=== PATIENT | female | born 1985 | race Caucasian/White ===

== ENCOUNTER 2016-05-24 22:54 | Emergency (ER) | payer OTHER ==
[~2016-05-24] VITALS: Ht 157.5 cm; Wt 72.7 kg
[~2016-05-24 22:54] MED LIST: AMOX500C2 PO; HYDR-4003 PO; MECL-114 PO; ONDA8TAB10 PO; OXYC-465 PO; PNV1TABL9 PO; PREN1TAB25 PO; TAMS0.4C29 PO; TRIA10.8 NS
[2016-05-24 22:59] VITALS: BP 131/66; PULSE 107; RESP 20; O2SAT 96
--- NOTE | 2016-05-24 23:47 | ED.REPORT ---
HPI-Abd Pain F Under 40 Date of Service May 24, 2016 ED Provider: Felipe Sarmiento MD The patient is a 30 year old female who is 33 weeks and was seen in the ED/admitted to the hospital two weeks ago for urinary urge and irritation who presents to the ED complaining of abdominal pain for the last month. She was diagnosed with hydronephrosis early last month and had a uretal stent placed at [facility] (04/27/16). Her last ultrasound was last week, her urine was last checked for infection two days ago. She states that her pain has been gradually worsening. She denies any other symptoms at this time. She is followed by Dr. Bartlett, urology. 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 Nursing Notes Stated Complaint: ABDOMINAL PAIN- 33WKS Chief Complaint: Female Abdominal Pain Nursing Notes Reviewed: Yes Allergies: Coded Allergies: No Known Allergies (Verified , 07/23/04) Scheduled Amoxicillin (Amoxicillin) 500 Mg Capsule 500 MG PO TID Meclizine (Bonine) 25 Mg Tab.chew 25 MG PO TID Pnv Cmb#21/Iron/Folic Acid ( Complete Caplet) 1 Each Tablet 1 EACH PO DAILY Vit#96/Ferrous Fum/FA ( Tablet) 1 Each Tablet 1 EACH PO DAILY Tamsulosin ER (Tamsulosin ER) 0.4 Mg Cap.er.24h 0.4 MG PO DAILY Triamcinolone Acetonide (Nasacort) 10.8 Ml Ravenel 10.8 ML NS DAILY Scheduled PRN Hydrocodone-Acetaminophen 5-325 mg (Hydrocodone-Acetaminophen 5-325 mg) 1 Each Tablet 1 TABLET PO BID PRN PRN For Pain Ondansetron ODT (Ondansetron ODT) 8 Mg Tab.rapdis 8 MG PO Q4H PRN PRN For Nausea Ondansetron ODT (Ondansetron ODT) 8 Mg Tab.rapdis 8 MG PO QID PRN PRN For Nausea oxyCODONE-Acetaminophen 7.5-325 mg (oxyCODONE-Acetaminophen 7.5-325 mg) 1 Each Tablet 1-2 TAB PO Q6H PRN PRN For Pain General Time Seen by : 23:32 Chief Complaint Abdominal pain, # weeks (33) Hx Obtained From: Patient Arrived By: Walk-in Sudden in Onset?: No Onset Occurred: More than a week ago... (4 weeks) Symptom Duration: Since onset Progression since Onset: Gradually worsening Location: : Abdomen lower: Suprapubic Quality: Painful Severity: Current: Moderate Severity: Maximum: Severe Recent Healthcare: Recent doctor visit, Recent hospitalization, Recent testing , Previous surgery, Prior workup Similar Sx Previous: No Past Medical History Past Medical History Hx of kidney stones UTI Depression and anxiety Past Surgical History Exc. lipoma upper back Kidney stone removal Family History Noncontributory Smoking History Never Smoker Social History Alcohol Use: Denies alcohol use Drug Use: Denies drug use Other Social History: Local resident Ambulatory Status Independent Review of Systems Constitutional: Denies: Chills, Fever Respiratory: Denies: Non-productive cough, Shortness of breath, Wheezing GI: Reports: Abdominal pain, Denies: Vomiting Female: Reports: Dysuria, Flank pain, , Urinary frequency, Urinary urgency Musculoskeletal: Denies: Extremity pain Complete sys rev & neg: except as marked. Physical Exam Initial Vital Signs Vital Signs (First) Date Time Temp Pulse Resp B/P Pulse Ox O2 Delivery O2 Flow Rate FiO2 05/24/16 22:59 36.4 107 20 131/66 96 Room Air Initial VS: Reviewed, Vital signs abnormal Head / Eyes: Atraumatic, Normocephalic, PERRL ENT: Mucous membranes moist, Conjunctiva normal, No scleral icterus Neck: Supple, Non-tender, Full range of motion Extremities: Vascular intact, Neuro intact, No swelling, No tenderness Skin: Warm, Dry, No cyanosis Neurologic: Alert, Oriented, Nonfocal Psychiatric: Mood/affect normal, Behavior normal, Normal thought content General/Constitutional: Awake, Alert Distress / Hydration: Positive: Distress mild Appearance / Presentation: Positive: Uncomfortable Respiratory / Chest: Atraumatic, Breath sounds NL, Breath sounds = bilat, No respiratory distress Cardiovascular: Heart rate NL, Regular rhythm, Heart sounds NL Abdomen: Atraumatic Tenderness/Guarding/Rebound: Positive: Tender diffuse Back: Atraumatic Mild right CVA tenderness Interpretation & Diagnostics Lab Results Interpretation Test 05/25/16 04:15 Urine Color Dark yellow (YELLOW) Urine Appearance Clear (CLEAR,HAZY) Urine pH 6.5 (5.0-8.0) Urine Specific [place] 1.025 (1.003-1.035) Urine Protein 100mg/dL (NEG,TRACE) Urine Glucose (UA) Negativemg/dL (NEGATIVE) Urine Ketones Negativemg/dL (NEGATIVE) Urine Occult Blood Large (NEGATIVE) Urine Nitrite Positive (NEGATIVE) Urine Bilirubin Negative (NEGATIVE) Urine Urobilinogen Normalmg/dL (NORMAL) Urine Leukocyte Esterase Small (NEGATIVE) Urine RBC Packed/hpf (0-2) Urine WBC 0-5/hpf (0-5) Urine Epithelial Cells Moderate/hpf (NONE-MOD) Urine Crystals None seen (NONE SEEN) Urine Bacteria None/hpf (NONE-FEW) Urine Hyaline Casts None/lpf (NONE) Urine Granular Casts None seen (NONE SEEN) Urine Waxy Casts None seen (NONE SEEN) Urine Red Blood Cell Casts None seen (NONE SEEN) Urine White Blood Cell Casts None seen (NONE SEEN) Urine Mucus None seen (None Seen) Urine Trichomonas None seen (NONE SEEN) Urine Yeast None (NONE SEEN) Urine Culture Reflexed Indicated Hold Urine Received (Received) US Focused non-OB Pelvis IMPRESSION: 1. Mild to moderate right hydronephrosis. Right uretal stent with the upper portion in the procimal ureter and the lower portion in the urinary bladder. 2. Nonobstructive left nephrolithiasis. Exam Performed by: Allied health pract Exam Interpreted by: Radiologist Re-Eval/Medical Decision Med Decision/Clinical Course The ultrasound shows that the hydronephrosis is no worse and the stent still appears to be properly placed. There is no urinary tract infection. Dr. Gonzalez (multimedia instructional designer for Dr. Grimm) was contacted. He will discuss with Dr. Grimm the need for sooner follow-up and possibly using Suboxone his pain management in this patient if narcotics are needed for a longer period of time. Source of Hx: Old records Re-Evaluation/Progress #1: Time of Eval: 02:36 Re-Evaluation/Progress Note: Rechecked the patient to discuss ultrasound result. She reports moderate improvement following treatment. Re-Evaluation/Progress #2: Time of Eval: 06:01 Re-Evaluation/Progress Note: Rechecked the patient. Discussed consult with Dr. Gonzalez and plan for discharge. Follow-up instructions and RTER warnings given. The patient understands and agrees to the plan. All questions addressed. Consultation : Referral / Consult Name: Vincent Gonzalez DO Call Returned at: 05:57 Note: Discussed the patient's history and symptoms in detail with Dr. Gonzalez OBGYN multimedia instructional designer for Dr. Antonio, who will see the patient this week in the office. Counseled Regarding: Diagnosis, Lab results, Need for follow-up, When/why to return to ED, Other (imaging) Discharge & Departure Primary Impression: Abdominal pain Abdominal location: generalized Qualified Code: R10.84 - Generalized abdominal pain Additional Impressions: Pain due to ureteral stent Encounter type: subsequent encounter Qualified Code: T83.84XD - Pain from genitourinary prosthetic devices, implants and grafts, subsequent encounter with hydronephrosis in third trimester Disposition: Home Discharge Condition All VS Reviewed: Yes Condition: Stable Additional Instructions: The ultrasound shows that your hydronephrosis is no worse and your stent still appears to be properly placed. You do not have a urinary tract infection. I do not see any specific abnormality of your private area that would be a cause of pain. Continue your pain medication for now. If you require continued narcotic pain medicine, it probably would be a good idea to switch to buprenorphine for pain management because there is less likelihood that the baby would have difficulty on that medication. Have Dr. Grimm contact me if that is being considered as an option. I talked to Dr. Gonzalez who is multimedia instructional designer for Dr. Grimm this . He will let Dr. Grimm know that you need to be seen sooner than this Thursday. Contact me at [phone] between the hours of 9 PM and 6 AM for the next few nights if you have questions or concerns. Referrals: Yayo Antonio MD (PCP) Arthur Attestation Portions of this note were transcribed by Syed Ramos. I, Dr. Sarmiento, personally performed the history, physical exam and medical decision-making; I reviewed and confirmed the accuracy of the information in the transcribed note. Signed by: Arthur Ziegler, 05/25/16 06:01. copies to: Yayo Antonio MD, Howard L MD May 24, 2016 23:47 SYED RAMOS May 25, 2016 00:00
[2016-05-25] MEDS ORDERED: HYDROmorphone 1 mg/mL Inj IM ONE ×2 (00:10→03:05)
[2016-05-25 03:52] VITALS: BP 102/78; PULSE 98; RESP 16; O2SAT 98
[2016-05-25 05:31] LABS: APPEARANCE,URINE CLEAR (CLEAR,HAZY); COLOR,URINE DARK YELLOW (YELLOW); OCCULT BLOOD,URINE LARGE (NEGATIVE); PH,URINE 6.5 (5.0-8.0); UROBILINOGEN,URINE NORMAL (NORMAL)
[2016-05-25] MEDS ORDERED: _oxyCODONE/APAP 5-325 mg Tablet PO PRN (06:00)
[2016-05-25 06:48] VITALS: BP 106/57; PULSE 89; RESP 18; O2SAT 97
--- NOTE | 2016-05-25 08:24 | DRSVH ---
PROCEDURE: US RENAL SONOGRAM INDICATIONS: assess hydroureter and stent position TECHNIQUE: Real-time scanning was performed of the kidneys and bladder, with image documentation. COMPARISON: None. FINDINGS: Patient is 33 weeks . Kidneys: Kidneys are normal in size. Right kidney measures 13.9 cm long; left kidney measures 12.8 cm long. Right renal cortical thickness is 1.4 cm; left renal cortical thickness is 1.3 cm. Renal c ortical echotexture is normal. There is mild to moderate right renal hydronephrosis if any change sl ightly more prominent than 05/20/16. Proximal ureteral stent is not visualized within the renal collect ing system on the right. Distally there is an echogenic focus consistent with stent in the bladder. There is a 6 mm echogenic focus centrally in the mid to lower pole of left kidney suspicious for nono bstructing stone. Bladder: Pre-void bladder volume is 43 mL. Post-void residual is zero mL. Pre-void images demonstr ate no intraluminal masses or stones Miscellaneous: No free pelvic fluid. IMPRESSION: 1. Proximal ureteral stent on the right is not visualized. A mild to moderate right hydronephrosis is unchanged to slightly more prominent compared to 05/20/16. Echogenic focus in the bladder is consisten t with distal right ureteral stent. 2. Question of nonobstructing stone in the left kidney. Dictated by: Easton Gutiérrez M.D. on 05/25/2016 at 8:22 Approved by: Easton Gutiérrez M.D. on 05/25/2016 at 8:22
[2016-08-26] MEDS ORDERED: LORA0.5T PO (15:53)
[2016-09-10] MEDS ORDERED: WARF7.5T4 PO ×2 (10:18)
[2016-09-10] MEDS ORDERED: OMEP20TA24 PO (17:10)
== END 2016-05-25 06:45 | disposition home or self-care (01) ==
LOC: SED 22:54
DX: O26.893 Other specified pregnancy related conditions, third trimester (principal); T83.84XD Pain due to genitourinary prosthetic devices, implants and grafts, subsequent encounter; Y93.89 Activity, other specified; Y92.9 Unspecified place or not applicable; Y99.8 Other external cause status; O26.833 Pregnancy related renal disease, third trimester; Z3A.33 33 weeks gestation of pregnancy
CPT/HCPCS: 51701; 76770; 81000; 87086; 96372; 99284; J1170

== ENCOUNTER 2016-06-19 08:32 | Observation (INO) | payer OTHER ==
[2016-06-19] MEDS ORDERED: Ondansetron 2 mg/mL 2 mL Inj IVPUSH ONE (09:25)
[2016-06-19] MEDS: Lactated Ringer's 1,000 ML IV SCH ×2 (09:26→15:25)
[2016-06-19] MEDS ORDERED: Promethazine 25 mg/mL Inj IM ONE (10:50)
[2016-06-19 10:51] LABS: Mean Corpuscular Hemoglobin 23.1 pg (27.0-35.0)
[2016-06-19] MEDS ORDERED: Ondansetron 2 mg/mL 2 mL Inj IVPUSH PRN (17:30)
[2016-06-19] MEDS ORDERED: Lactated Ringer's 1,000 ML IV SCH (17:30)
[2016-06-19] MEDS ORDERED: Dextrose 5% Lactated Ringer's 1,000 ML IV ONE (18:24)
[2016-06-19] MEDS ORDERED: Dextrose 5% Lactated Ringer's 1,000 ML IV SCH (20:05)
[2016-06-19] MEDS ORDERED: Thiamine Inj 100 MG, Folic Acid Inj 1 MG, Magnesium Sulfate 50% Inj 2 GM, Multivitamins... IV ONE ×5 (21:50)
[2016-06-19] MEDS ORDERED: Acetaminophen IV 1,000 MG in IV Premix 1 EACH IV PRN (22:35)
[2016-06-19] MEDS: oxyCODONE-Acetamin 5-325 mg Tablet PO PRN (22:42)
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
[2016-06-20] MEDS: oxyCODONE-Acetamin 5-325 mg Tablet PO PRN (09:40)
[2016-06-20 11:40] LABS: APPEARANCE,URINE CLOUDY (CLEAR,HAZY); COLOR,URINE STRAW (YELLOW); OCCULT BLOOD,URINE MODERATE (NEGATIVE); PH,URINE 7.5 (5.0-8.0); UROBILINOGEN,URINE NORMAL (NORMAL)
--- NOTE | 2016-06-20 16:09 | PCM.DIMED ---
Discharge Instructions Date of Service Jun 20, 2016 Dates of Hospitalization Jun 19, 2016 at 17:29 Discharge Diagnosis Discharge Diagnosis Dehydration Vomiting Right Nephrolithiasis with stenting 37 week Diet No restrictions Activity No restrictions Call your provider Fever or Chills, Shortness of breath, Bleeding, Chest pain, Vomitting, Excessive diarrhea Patient Instructions Follow-up Provider: Yayo Antonio MD Follow-up with PCP in: 1 week Gabriel Maddox MD Jun 20, 2016 10:47
[2016-06-20 16:11] VITALS: BP 94/63; PULSE 86; RESP 16
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
[2016-08-26] MEDS ORDERED: LORA0.5T PO (15:53)
[2016-09-10] MEDS ORDERED: WARF7.5T4 PO ×2 (10:18)
[2016-09-10] MEDS ORDERED: OMEP20TA24 PO (17:10)
== END 2016-06-20 16:40 | disposition home or self-care (01) ==
LOC: FBCO 08:32 → FBC 17:29
PROVIDERS: ADMIT Family Medicine; ATTEND Family Medicine
DX: E86.0 Dehydration (principal); O60.03 Preterm labor without delivery, third trimester; R11.2 Nausea with vomiting, unspecified; F41.9 Anxiety disorder, unspecified; R19.7 Diarrhea, unspecified; F17.210 Nicotine dependence, cigarettes, uncomplicated; Z87.442 Personal history of urinary calculi; Z91.419 Personal history of unspecified adult abuse; Z3A.37 37 weeks gestation of pregnancy
CPT/HCPCS: 36415; 81000; 85027; 87086; 87088; 87804; 96372; 96374; 96375; 96376; G0378; G0463; J2270; J2405; J2550; J3105; J3475; J7030; J7120

== ENCOUNTER 2016-06-23 14:29 | Inpatient (IN) | payer OTHER ==
[~2016-06-23] VITALS: Ht 157.5 cm; Wt 74.4 kg
[~2016-06-23 14:29] MED LIST changes: -AMOX500C2 PO; +Bupiv-Spinal 0.75%/Dex 8.25% 2 mL Inj ONE; +Carboprost 250 mCg/mL Inj IM ONE; +EPHEDrine/NS 5 mg/mL 5 mL Syringe ONE; +MetoCLOpramide 5 mg/mL 2 mL Inj ONE; +Ondansetron 2 mg/mL 2 mL Inj ONE; +Oxytocin 10 Unit/mL Inj ONE; +Phenylephrine 10,000 mCg/mL Inj ONE
[2016-06-23] MEDS ORDERED: Morphine PF 1 mg/mL 10 mL Inj ONE (14:59)
[2016-06-23] MEDS ORDERED: Lactated Ringer's 1,000 ML IV SCH ×2 (15:06→16:43)
[2016-06-23] MEDS ORDERED: Carboprost 250 mCg/mL Inj IM PRN ×2 (15:10→17:40)
[2016-06-23] MEDS ORDERED: Methylergonovine 0.2 mg/mL Inj IM PRN ×2 (15:10→17:40)
[2016-06-23] MEDS ORDERED: Hemorrhage Kit, Post Partum XX ONE ×2 (15:10→17:40)
[2016-06-23] MEDS ORDERED: Sodium Citrate-Citric Acid 15 mL Solution PO SCH (15:10)
[2016-06-23] MEDS ORDERED: Oxytocin 10 Unit/mL Inj IM PRN ×2 (15:10→17:40)
[2016-06-23] MEDS ORDERED: CeFAZolin 2 Gm/50 mL D5W Duplex Bag IV ONE (15:16)
[2016-06-23 15:20] LABS: Mean Corpuscular Hemoglobin 22.8 pg (27.0-35.0); Mean Corpuscular Volume 75.2 fL (81-100)
--- NOTE | 2016-06-23 15:57 | PCM.HPANE ---
Patient Data Surgeon Admitting Provider:Van Hawthorne MD Attending Provider:Van Hawthorne MD Primary Care Physician:Yayo Antonio MD Other Provider:Calvin Noble Anesthesia Reason for Visit Term Early Labor TERM EARLY LABOR Ht/WT & BMI Body Mass Index Allergies Coded Allergies: No Known Allergies (Verified , 07/23/04) Past Anesthesia History Anesthesia History: Denies:: Abnormal Airway, Anesthesia Reactions, Difficult Intubation, Fam Anesthesia Reaction, Fam Malignant Hypertherm, Malignant Hyperthermia Diabetes History Hx Diabetes?: No MRSA MRSA: No Medications Hypertension Medication: No Home Meds Incl Beta Dejuan: No Active Scripts oxyCODONE-Acetaminophen 7.5-325 mg 1 Each Tablet1-2 Tab PO Q6H PRN For Pain #30 TABLET Ref 0 Prov:Gabriel Maddox MD 05/11/16 Ondansetron ODT 8 Mg Tab.rapdis8 Mg PO Q4H PRN For Nausea #15 TABLET Ref 1 Prov:Aiden Cole MD 04/15/16 Hydrocodone-Acetaminophen 5-325 mg 1 Each Tablet1 Tablet PO BID PRN For Pain # 20 TABLET Ref 0 Prov:Aiden Cole MD 04/15/16 Meclizine (Bonine)25 Mg Tab.chew25 Mg PO TID DIZZINESS #14 TABLET Prov:Ariel Aviles MD 03/13/16 Triamcinolone Acetonide (Nasacort)10.8 Ml Spray10.8 Ml NS DAILY CONGESTION #1 SPRAY Prov:Ariel Aviles MD 03/13/16 Reported Medications Tamsulosin ER 0.4 Mg Cap.er.24h0.4 Mg PO DAILY 04/25/16 Ondansetron ODT 8 Mg Tab.rapdis8 Mg PO QID PRN For Nausea 04/25/16 Vit#96/Ferrous Fum/FA ( Tablet)1 Each Tablet1 Each PO DAILY 03/13/16 Pnv Cmb#21/Iron/Folic Acid ( Complete Caplet)1 Each Tablet1 Each PO DAILY 02/04/16 Discontinued Scripts Amoxicillin 500 Mg [id number] Mg PO TID #21 CAPSULE Ref 0 Prov:Gabriel Maddox MD 05/11/16 History History of ENT Problems?: No HEENT History: Denies:: Abnormal Airway Cataracts Difficult Intubation Dysphagia Hearing Problem Sinus Problem Hx of Heart Problems?: No Cardiovascular History: Denies:: Cardiac Surgery Chest Pain Congestive Heart Failure Heart Murmur Hypertension Irregular Heartbeat Pacemaker Thrombophlebitis Hx of Respiratory Problem?: Yes Respiratory History: Positive for:: Pneumonia (Hosp for pnuemonia 2010 8 days) Denies:: Asthma COPD Chest Surgery Dyspnea Emphysema Hemoptysis Tuberculosis Hx Neurologic Problems?: Yes Neurological History: Positive for:: Headaches Denies:: Alzheimer's Disease CVA Dementia Dizziness Parkinson's Disease Seizures Hx of GI Problems?: Yes Gastrointestinal History: Positive for:: Rectal Bleeding Denies:: Diverticulitis Gastroesphageal Reflux Gastrointestinal Bleeding Heartburn Hepatitis Hiatal Hernia Hx of Problems?: Yes Genitourinary History: Positive for:: Kidney Stones Urinary Tract Infection Denies:: HX of Hemodialysis HX of Peritoneal Dialysis: No Female Hx: Positive for:: Currently (29wks ) Denies:: Endometriosis Pelvic Inflammatory Problems with Breasts? Skin History: Denies:: History Skin Disorders? Pressure Ulcers Hx Musculoskeletal Problems?: Yes Musculoskeletal History: Positive for:: Back Injury (THREW BACK OUT ONCE IN SOFTBALL) Denies:: Joint Replacement Musculoskeletal Trauma Hx of Psycho/Social Problems?: Yes Psycho Social History: Positive for:: Anxiety Hx Depression Denies:: Bipolar Disorder Hx Surgeries?: Yes (EXC LIPOMA UPPER BACK, , kidney stone removal) Hx Any Other Health Problems?: Yes Other History: Denies:: Cancer Endocrine Disease Hospitalization Thyroid Disease History Blood Transfusions: Denies:: Blood Transfuse Reaction Blood Transfusions Hx Diabetes: No Hx Alcohol Use: YesHx Substance Use: No Smoking Status: Never Smoker Have You Smoked inLast 12 mo: No Stop/Bang ARABELLA Risk Assessment: Low Risk, <3 Yes Risk Assessment Category Category 1A: Patient has history of documented sleep apnea, and HAS NOT received any narcotic, sedative or anesthesia administration during this stay. Category 1B: Patient has history of documented sleep apnea, and HAS received any narcotic , sedative or anesthesia administration during this stay Category 2: Patient has SUSPECTED Obstructive Sleep Apnea, and HAS received any narcotic , sedative or anesthesia administration during this stay. Category 3: Patient has SUSPECTED Obstructive Sleep Apnea and HAS NOT received narcotic, sedative or anesthesia administration during this stay. Category 4: Outpatient in Procedural Areas with known sleep apnea or who screen positive for High Risk via the STOP/BANG questionnaire. Exam Exam General Appearance: Moderate Distress HEENT/AIRWAY: MP 2 Lungs: Clear to Auscultation, Normal Air Movement Heart: Exam Unremarkable, Regular Rate/Rhythm, No Murmurs/Rubs/Gallops Meds/Labs/Diagnostics Admission Meds Current Medications Lactated Ringer's (Lr) 1,000 ml @ 125 mls/hr Q8H IV Last administered on 15:34; Start 06/23/16 at 15:06; Stop 06/23/16 at 23:05 Cefazolin Sodium/ Dextrose (Ancef Inj) 2 gm STK-MED ONCE IV Last administered on 06/23/16 15:33; Start 06/23/16 at 15:16; Stop 06/23/16 at 15:18; Status DC Labs Test 06/23/16 15:05 White Blood Count 11.2th/mm3 (3.8-10.1) Red Blood Count 4.04mil/mm3 (3.90-5.20) Hemoglobin 9.2g/dL (12.0-15.6) Hematocrit 30.4% (35.0-46.0) Mean Corpuscular Volume 75.2fL (81-100) Mean Corpuscular Hemoglobin 22.8pg (27.0-35.0) Mean Corpuscular Hemoglobin Concent 30.3% (32.0-37.0) Red Cell Distribution Width 18.8% (12.3-15.4) Platelet Count 355bil/L (150-400) Plan Impression Patient chart reviewed, patient interviewed and anesthestic plan with risks, benefits, and alternatives discussed, and informed consent obtained. ASA Physical Status: ASA2 Plus Emergency Anesthetic Plan: SAB Bene/Risks/Altern/Consents: Yes HP Complete Prior to Induction: Yes (OB doc feels that further delay is not warranted and that we need to proceed prior to NPO guidelines.) Syed Pride MD Jun 23, 2016 15:40
[2016-06-23] MEDS ORDERED: Lactated Ringer's 500 ML IV PRN (16:43)
[2016-06-23] MEDS ORDERED: fentaNYL-PF 50 mCg/mL 2 mL Inj IVPUSH PRN (16:45)
[2016-06-23] MEDS ORDERED: EPHEDrine Sulfate 50 mg/mL Inj IVPUSH PRN ×2 (16:45→16:50)
[2016-06-23] MEDS ORDERED: hydrALAZINE 20 mg/mL Inj IVPUSH PRN (16:45)
[2016-06-23] MEDS ORDERED: MetoCLOpramide 5 mg/mL 2 mL Inj IVPUSH PRN (16:45)
[2016-06-23] MEDS ORDERED: Labetalol 5 mg/mL 4 mL Inj IV PRN (16:45)
[2016-06-23] MEDS ORDERED: HYDROmorphone 1 mg/mL Inj IVPUSH PRN (16:45)
[2016-06-23] MEDS ORDERED: Ondansetron 2 mg/mL 2 mL Inj IVPUSH PRN (16:45)
[2016-06-23] MEDS ORDERED: Phenylephrine 10,000 mCg/mL Inj IVPUSH PRN (16:45)
[2016-06-23] MEDS ORDERED: Promethazine Inj 12.5 MG in Dextrose 5%-Pha MIX 50 ML IV ONE (17:30)
[2016-06-23] MEDS ORDERED: Oxytocin 30 Units/500 mL LR 30 UNITS in IV Premix 1 EACH IV PRN (17:40)
[2016-06-23] MEDS ORDERED: LANOlin HPA 7 Gm Ointment TOPICAL PRN (17:40)
[2016-06-23] MEDS ORDERED: Acetaminophen IV 1,000 MG in IV Premix 1 EACH IV PRN (17:40)
[2016-06-23] MEDS ORDERED: Sodium Chloride LOK Flush 10 mL Syringe IVFLUSH PRN (17:40)
[2016-06-23] MEDS ORDERED: hydrOXYzine Pamoate 25 mg Capsule PO PRN (17:40)
--- NOTE | 2016-06-23 17:50 | PCM.ANEP1 ---
Post Anesthesia Phase 1 PACU Phase 1 Assessment Anesthetic Administered: SAB Level of Alertness: Awake, talking WORKMAN's with Equal Strength: No (residual SAB) Pain: No Nausea or Vomiting: No Oxygen Delivery: Room Air Lungs: Clear to Auscultation, Normal Air Movement Dermatome Level: T4 (Nipple Line) Summary Vital signs stable. Syed Pride MD Jun 23, 2016 17:50
--- NOTE | 2016-06-23 17:54 | PCM.ANEP2 ---
Post Anesthesia Evaluation ASA/CMS Post Anesthesia VS in Patient's Normal Range?: Yes Resp Stable; Airway Patent?: Yes CV Function & Hydration Stable: Yes Mental Status Recovered?: Yes Pain control Satisfactory?: Yes N/V Control Satisfactory?: Yes Syed Pride MD Jun 23, 2016 17:54
[2016-06-23] MEDS: Lactated Ringer's 1,000 ML IV SCH (22:47)
[2016-06-23] MEDS: oxyCODONE-Acetamin 5-325 mg Tablet PO PRN (22:48)
--- NOTE | 2016-06-23 23:59 | HP PRE OP ---
[address] [address] PREOPERATIVE HISTORY AND PHYSICAL PATIENT: DANIEL TINSLEY : 1985 MR#: [id number] ADMIT: 06/23/2016 JOB ID: [id number] HISTORY OF PRESENT ILLNESS: The patient is a 30-year-old, 3, para 2, at 37 weeks and 2 days, comes to Labor and Delivery with complaint of ruptured membranes since 2 p.m. yesterday, patient arrives at around 4 p.m. The amniotic fluid is clear. She denies any fever and chills. She denies abnormal vaginal discharge or vaginal bleeding. She admits having contractions every 3-4 minutes that are becoming more frequent and intense. Her care was in office of Dr. Antonio. The patient had one prior delivery with her second because of bradycardia. She preferred to have another delivery. She does not want to have tubal ligation at this time. records were reviewed. She is group B strep unknown. Blood group and type A, Rh negative. Rubella immune. care was relatively uncomplicated. The patient has a history of anxiety disorder, currently on no medications. She has a history of kidney stones. SOCIAL HISTORY: She denies smoking, alcohol, illicit recreational drug use. FAMILY HISTORY: Noncontributory. ALLERGIES: NKDA. PHYSICAL EXAMINATION: Vital signs: Blood pressure 110/62, respiratory rate 18, pulse 78, temperature 36.7. HEENT: PERRLA. Lungs: Clear bilaterally. Good respiratory effort. The abdomen is gravid, nondistended, moderately tender with contractions. Patient uncomfortable, complaining of contractions every three minutes. Vaginal exam: Pooling of amniotic fluid in the posterior fornix of the vagina, it is clear. The cervix is 3 cm dilated, 80% effaced, -1 station. LABORATORIES: Were sent, they are pending. ASSESSMENT AND PLAN: The patient is a 30-year-old, 3, para 2, at 37 weeks and 2 days, spontaneous rupture of membranes for 26 hours with regular contractions every three minutes. She had prior section and prefers to have another . The patient is in active labor. She is going for repeat delivery. Informed consent is obtained. The risks and benefits were explained, the risks including, but not limited to, bleeding, infection, complications related to damage to adjacent organ or structures, increased recovery period. We are not doing any tubal ligation at this point. Antibiotics will be started with Ancef 2 g IV piggyback. IV fluids Lactated Ringer's at 125 mL/h. Bacytra will be given 30 mL p.o. one dose. Herrera catheter is being placed. Labs pending. MTDD
--- NOTE | 2016-06-24 01:08 | OP ---
[address] [address] OPERATIVE REPORT PATIENT: DANIEL TINSLEY : 1985 MR#: [id number] ADMIT: 06/23/2016 JOB ID: [id number] DATE OF SURGERY: 06/23/2016 PROCEDURE: Repeat low transverse section. PREOPERATIVE DIAGNOSIS(ES): 1. Intrauterine , 37 weeks and 2 days. 2. Spontaneous rupture of membranes, prolonged. 3. History of prior delivery. POSTOPERATIVE DIAGNOSIS(ES): 1. Prolonged spontaneous rupture of membranes. 2. Status post repeat delivery at term. SURGEON: Van Hawthorne MD MANAGEMENT NURSE RN: Yayo Antonio MD ANESTHESIA: Syed Pride MD, spinal. ESTIMATED BLOOD LOSS: 500 mL. ESTIMATED FLUIDS: 2200 mL of lactated Ringer's. URINE OUTPUT: 200 mL. COMPLICATIONS: None. FINDINGS: Adhesions between the omentum and anterior abdominal wall. No adhesions between the uterus and the bladder. Normal appearance of the ovaries and adnexa. Delivered male with Apgars 8 at one minute and 9 at five minutes. INDICATION FOR THE PROCEDURE: The patient is a 30-year-old, 3 para 3 now, who came to Labor and Delivery with complaint of spontaneous rupture of membranes for 26 hours. The patient has prior history of delivery, and she opted to have another . The assistance of Dr. Antonio was necessary for proper exposure, retraction and assistance with delivery of the . DESCRIPTION OF PROCEDURE: The patient was brought to the operating room, where she underwent spinal anesthesia without difficulty. The patient was placed in a dorsal supine position with a leftward tilt. She was prepped and draped in the usual surgical fashion. A time-out was performed, verifying correct patient and correct procedure. She received preoperative antibiotics. A Pfannenstiel skin incision was made 2 cm over the pubic bone with a scalpel and carried down to the underlying layer of rectus muscle fascia using Bovie. The rectus muscle fascia was grasped with two Javid clamps, the lower aspect of the incision. The rectus muscle fascia was incised in the midline with the Bovie and the incision was then laterally extended using Jacinto scissors. The lower aspect of the incision was grasped with two Javid clamps and the rectus muscle fascia was from the underlying rectus muscle using Jacinto scissors. In a similar fashion, the upper aspect of the incision was grasped with two Javid clamps and the rectus muscle fascia was from the underlying rectus muscle using scalpel, Bovie, Jacinto scissors, moist laparotomy sponge. When adequate exposure was achieved, the rectus muscles were in the midline with the Eugenia clamps. The scarring between the muscles was released using Metzenbaum scissors. The lysis of adhesions was provided between the anterior abdominal wall and omentum. Bladder blade was introduced. Using scalpel, lower segment transverse uterine incision was made and extended laterally using bandage scissors. The 's head was identified, the bladder blade was removed and male was atraumatically delivered. The mouth and nostrils were suctioned. Delayed cord clamping was done, 60 seconds. After that, the cord was clamped and cut, and the was handed off to the waiting salvationist. The cord blood was sent. The placenta was removed by applying pressure over the fundus of the uterus and gentle traction. The uterus was exteriorized and cleared from all the blood clots and debris using dry laparotomy sponge. The uterine incision was repaired with two layers of 0 Monocryl. The pelvis was irrigated with warm normal saline and the uterus was repositioned back into the abdomen. Good hemostasis was achieved. The peritoneum was reapproximated with 2-0 Monocryl. Two interrupted 2-0 Monocryl and two interrupted 2-0 Vicryl sutures were placed on the rectus muscles for reapproximation. The fascia was closed with 0-Vicryl in a running, nonlocking fashion. Three interrupted 3-0 Vicryl sutures were applied to Tung's fascia and subcuticular tissue for reapproximation. The skin was closed with 4-0 Monocryl in a subcuticular fashion. Hemostatic dressing was applied. The patient was repositioned back into the supine position. She tolerated the procedure well and was transferred to the recovery room in stable condition.
[2016-06-24] MEDS: oxyCODONE-Acetamin 5-325 mg Tablet PO PRN ×5 (04:28→21:40)
[2016-06-24 06:41] LABS: Mean Corpuscular Hemoglobin 23.2 pg (27.0-35.0); Mean Corpuscular Volume 75.4 fL (81-100)
--- NOTE | 2016-06-24 07:00 | PCM.PNOBPP ---
Subjective Date of Service Jun 24, 2016 Post : Repeat Cesere[place] Delivery Visit History 30-year-old woman now presented [facility] with spontaneous rupture of membranes, found to be in active labor, she received a repeat section 06/23/[address] Hawthorne. She received intrapartum antibiotics due to unknown GBS status. Outpatient records show negative antibody screen, however repeat antibody screen on presentation showed positive antibody, positive anti-D. Subjective Patient states she is doing well. Says her pain is under control. So she has mild lower extremity swelling, but nothing out of the ordinary from her previous pregnancies and without asymmetry. States she has a good appetite and is eating as though she is still . Her only complaint is significant feelings of gas "rumbling." Lochia: Normal Pain Management: PO pain meds Gastrointestinal: Good Appetite Postop Activity: Ambulating Independently Labs Quad screen negative per outpatient record 02/06/2016 Gestational diabetes screen high normal 139 GBS culture 06/11/2016 negative Chlamydia and gonorrhea, last results seen from August 2012, and January 2012, both negative. Unable to find results from this . Microcytic anemia, hemoglobin 8.2, MCV 74, on CBC from 04/23/2016 Group B Strep Results: Negative Rubella: Immune Blood Type: A RH Type: Negative Labs Laboratory Tests 06/23/16 15:05: White Blood Count 11.2, Red Blood Count 4.04, Hemoglobin 9.2, Hematocrit 30.4, Mean Corpuscular Volume 75.2, Mean Corpuscular Hemoglobin 22.8, Mean Corpuscular Hemoglobin Concent 30.3, Red Cell Distribution Width 18.8, Platelet Count 355 Exam Vital Signs Vital Signs 109/67mmHg HR 80 SaO2 99% on RA Resp 18 per minute Temp 97.7 F. Vital Signs: VS reviewed, stable Exam Abdomen: Abdomen appropriately tender : Voiding without difficulty (Had howe catheter removed just before encounter. H/o incontinence during due to instrumentation. ) Extremities: Normal pulses, No tenderness/swelling, No edema Lungs: Clear to Auscultation Heart: Regular Rate/Rhythm, Normal S1, Normal S2, Murmur (upstroking systolic while supine /.) General: Oriented X3, Cooperative, No Acute Distress Additional Information Surgical dressing in place, bandages dry and intact. OB Post Assessment/Plan Assessment 30-year-old woman now status post repeat section postop day 1, recovering well. Pain is under control with oral analgesics. Surgical dressing in place without complications. Has not yet had a bowel movement or passed flatus. Had Howe catheter removed several minutes prior to physical exam, and not yet had opportunity to void on her own. Baby's blood type is O NEGATIVE, with negative antiglobulin test. Problems: (1) SROM (spontaneous rupture of membranes) Status: Acute ICD Code: [id number] (2) Previous delivery affecting Status: Acute ICD Code: O34.21 Pain Management: Continue with oral analgesics. Pain Evaluation: Adequate Pain Control Post plan: Continue routine post care, Discharge home tomorrow Plan: Anticipating discharge home tomorrow, postop day 2. Continue to monitor surgical site, increase ambulation to independence, oral analgesics, monitor urination status. States she is interested in IUD for contraception, has had it in the past, review of outpatient records shows that she had a Mirena. Encourage ambulation Encourage breast feeding, consultation today. Attending Statement Doing well today. Pain is well controlled. She is ambulating and howe catheter is removed, awaiting spontaneous void. No flatus yet. Denies nausea or vomiting. She is breast and botte feeding. Labs show anemia. Will start FeS04. Incision is clean/dry/intact with pressure bandage. Lochia is minimal and vital signs are stable. Has planned follow up with urology for removal of stents planned with Dr. Bartlett. Blood type is RH negative as is baby's, no rhogam is indicated. Plan for discharge home tomorrow. Rafael Pineda DO Jun 24, 2016 06:22 Aysha Rodríguez MD Jun 24, 2016 11:28
[2016-06-24] MEDS: Lactated Ringer's 1,000 ML IV SCH (09:37)
[2016-06-25] MEDS: oxyCODONE-Acetamin 5-325 mg Tablet PO PRN ×3 (02:58→12:05)
--- NOTE | 2016-06-25 11:44 | PCM.DIMED ---
Discharge Instructions Date of Service Jun 25, 2016 Dates of Hospitalization Jun 23, 2016 at 14:58 Discharge Diagnosis Discharge Diagnosis Spontaneous rupture of membranes Repeat section Medication Instructions Percocet 5/325 mg, take 1 tab q4-6h PO PRN for pain, #40-60 Colace 100 mg BID PO PRN for constipation #60-100 Ferrous sulfate 325 mg PO daily, #90 Vitamin C 500 mg PO daily, #90. Take with iron Ibuprofen 800mg, take 1 tab q8h PO PRN for pain Diet No restrictions Activity Other (No heavy lifting for two-four weeks.) Call your provider Fever or Chills, Shortness of breath, Bleeding, Chest pain, Vomitting, Excessive diarrhea, Weakness (unilateral) Patient Instructions Continue your vitamin. Please take the iron and vitamin c together for your anemia. Do not take more pain medication (Percocet) than is necessary -- less is better. Percocet pills have Tylenol (acetaminophen) in them at 325mg per pill. Do not take Tylenol in addition to your pain medication but should take one or the other. Both iron and Percocet can give you constipation so you have also been given a prescription for docusate to keep you regular. Be sure to follow up in 2 weeks and then again in [facility] at [facility]. If you experience any worsening pain on your incision area, any drainage, bleeding, nausea, vomiting, chills, fever, please contact women's [facility] office or report to emergency department if necessary. Follow-up plan 2 weeks [facility] Provider: Yayo Antonio MD Follow-up in: 4 weeks Rafael Pineda DO Jun 25, 2016 11:44
[2016-06-25] MEDS ORDERED: DOCU-41 PO (11:54)
[2016-06-25] MEDS ORDERED: Simethicone PO (11:54)
[2016-06-25] MEDS ORDERED: OXYC-465 PO (11:54)
[2016-06-25] MEDS ORDERED: IBUP800T28 PO (11:54)
[2016-06-25] MEDS ORDERED: FERR-74 PO (11:54)
--- NOTE | 2016-06-25 12:29 | PCM.DC.OB ---
Obstetrical Discharge Summary Date of Service Jun 25, 2016 Date of hospital admission Jun 23, 2016 at 14:58 Date of Discharge: Jun 25, 2016 Providers Admitting Physician: Van Hawthorne MD Primary Care Physician: Yayo Antonio MD Attending Physician: Van Hawthorne MD Diagnosis at Time of Discharge Spontaneous rupture of membranes Prolonged rupture of membranes Status post repeat delivery Problems: (1) SROM (spontaneous rupture of membranes) Status: Acute ICD Code: [id number] (2) Previous delivery affecting Status: Acute ICD Code: O34.21 Brief History and Physical: G3 now P3, presented at 37w 5d to 30 yo women delivered healthy male via elective c/s after she presented in Labor with ROM for about 26 hours. No fevers. complicated with Maternal blood type of A Neg; Kidney stones and urinary problems for last 2-3 months, Ureteral stents placed twice, Kidney stone removal and maternal stress. Apgars 9 and 9, delivery weight 2918g baby's blood type O-. Physical exam on day of discharge postop day 2 General: Sitting up, no apparent distress. HEENT: Normocephalic, atraumatic, extraocular muscles intact, nares are patent, mucosa moist. Cardiovascular: Regular rate and rhythm, no clicks murmurs or rubs, 2/4 peripheral pulses radial and dorsal pedalis Pulmonary: Clear to auscultation bilaterally, no wheezing rales or rhonchi Abdominal/GI: Nondistended, low transverse incision, margins are well aligned, there is no redness, dehiscence, discharge, area is tender. Musculoskeletal: Able to move extremities on her own volition, 5 out of 5 strength upper and lower extremities equal bilaterally Lymphatics: No palpable lymph nodes in neck axillary or inguinal area Extremities: No edema, atraumatic. Hospital Course: Patient presented to [facility] after 26 hours of spontaneous rupture of membrane, she is 37 weeks 5 days, and underwent repeat section. She was in the hospital for 2 days following , her main complaints during this stay included gassy cramping symptoms treated with simethicone and moderate pain and tenderness to incision site. On postop day 2 she was cleared for discharge, she also requested to go home after being offered to stay another night due to moderate surgical pain. Patient declined. ([Simethicone]) 80 MG CHEW 80 MG PO QID PRN PRN for gas Prescribed by: RAFAEL WELDON DO Docusate Sodium (Colace) 100 Mg Capsule 100 MG PO BID Prescribed by: RAFAEL WELDON DO Ferrous Sulfate (Feosol) 325 Mg Tablet 325 MG PO TIDWM Prescribed by: RAFAEL WELDON DO Ibuprofen (Ibuprofen) 800 Mg Tablet 800 MG PO Q6H PRN PRN For Pain Prescribed by: RAFAEL WELDON DO Meclizine (Bonine) 25 Mg Tab.chew 25 MG PO TID Prescribed by: JOVI LIRA MD Ondansetron ODT (Ondansetron ODT) 8 Mg Tab.rapdis 8 MG PO Q4H PRN PRN For Nausea Prescribed by: SORAIDA MONIQUE MD Pnv Cmb#21/Iron/Folic Acid ( Complete Caplet) 1 Each Tablet 1 EACH PO DAILY (Reported) Vit#96/Ferrous Fum/FA ( Tablet) 1 Each Tablet 1 EACH PO DAILY ( Reported) Tamsulosin ER (Tamsulosin ER) 0.4 Mg Cap.er.24h 0.4 MG PO DAILY (Reported) Triamcinolone Acetonide (Nasacort) 10.8 Ml [place] 10.8 ML NS DAILY Prescribed by: JOVI LIRA MD oxyCODONE-Acetaminophen 7.5-325 mg (oxyCODONE-Acetaminophen 7.5-325 mg) 1 Each Tablet 1-2 TAB PO Q6H PRN PRN For Pain Prescribed by: RAFAEL WELDON DO Discontinued Medications Amoxicillin (Amoxicillin) 500 Mg Capsule 500 MG PO TID Prescribed by: LEE FRANK MD Hydrocodone-Acetaminophen 5-325 mg (Hydrocodone-Acetaminophen 5-325 mg) 1 Each Tablet 1 TABLET PO BID PRN PRN For Pain Prescribed by: SORADIA MONIQUE MD Ondansetron ODT (Ondansetron ODT) 8 Mg Tab.rapdis 8 MG PO QID PRN PRN For Nausea (Reported) Discharge Medications: Percocet 5/325 mg, take 1 tab q4-6h PO PRN for pain, #40-60 Colace 100 mg BID PO PRN for constipation #60-100 Ferrous sulfate 325 mg PO daily, #90 Vitamin C 500 mg PO daily, #90. Take with iron Ibuprofen 800mg, take 1 tab q8h PO PRN for pain Disposition Patient is able to ambulate independently, expresses and conveys understanding for the concern of chorioamnionitis due to the moderate pain at the incision site. Patient agrees to close follow-up, and was given instructions on red flag symptoms and presented to the ER or the family center. Follow-up plan [facility] in 2 weeks and again in 6 weeks. Follow-up with Dr. Grimm's office in 4 weeks Discharge Diet: No restrictions Discharge Activity-General: Pelvic Rest for 6 weeks, Try not to overdue, Be up and about, Ice incision 3-5 time/day for 20min, No lifting >15 pounds for 2 weeks Patient instructions Continue your vitamin. Please take the iron and vitamin c together for your anemia. Do not take more pain medication (Percocet) than is necessary -- less is better. Percocet pills have Tylenol (acetaminophen) in them at 325mg per pill. Do not take Tylenol in addition to your pain medication but should take one or the other. Both iron and Percocet can give you constipation so you have also been given a prescription for docusate to keep you regular. Be sure to follow up in 2 weeks and then again in 6 weeks at [facility]. ( Follow up for without complications is 6 weeks) Pelvic rest for 6 weeks (nothing per vagina including intercourse, tampons) If you have a fever greater than 100.4, please call [facility]. There is always someone coupon clerk to talk to. If you have an increase in bleeding, call [facility]. If you have a lot of bleeding suddenly, especially if you have symptoms of dizziness & weakness with it, get emergency help. When you see [facility] in two weeks, you will be informed of the results of all the labs. If you start experiencing extreme depression, especially if you feel that you are a danger to yourself or your family, seek emergency help. You have been through a lot -- BE SURE TO TAKE CARE OF YOURSELF. Rafael Pineda DO Jun 25, 2016 12:29
[2016-06-25 12:48] VITALS: BP 120/71; PULSE 66; RESP 18
[2016-08-26] MEDS ORDERED: LORA0.5T PO (15:53)
[2016-09-10] MEDS ORDERED: WARF7.5T4 PO ×2 (10:18)
[2016-09-10] MEDS ORDERED: OMEP20TA24 PO (17:10)
== END 2016-06-25 13:24 | disposition home or self-care (01) | DRG 766 ==
LOC: FBCO 14:29 → FBC 14:58
PROVIDERS: ADMIT Legal Medicine; ATTEND Legal Medicine
PROC: 10D00Z1 Extraction of Products of Conception, Low, Open Approach (ICD-10-PCS; principal; 2016-06-23 16:01)
DX: O34.211 Maternal care for low transverse scar from previous cesarean delivery (principal); O42.02 Full-term premature rupture of membranes, onset of labor within 24 hours of rupture; Z3A.37 37 weeks gestation of pregnancy; Z37.0 Single live birth

== ENCOUNTER 2016-07-06 16:09 | Emergency (ER) | payer OTHER ==
[~2016-07-06] VITALS: Ht 157.5 cm; Wt 68.2 kg
[~2016-07-06 16:09] MED LIST changes: -Bupiv-Spinal 0.75%/Dex 8.25% 2 mL Inj ONE; -Carboprost 250 mCg/mL Inj IM ONE; +DOCU-41 PO; -EPHEDrine/NS 5 mg/mL 5 mL Syringe ONE; +FERR-74 PO; -HYDR-4003 PO; +IBUP800T28 PO; -MetoCLOpramide 5 mg/mL 2 mL Inj ONE; -Ondansetron 2 mg/mL 2 mL Inj ONE; -Oxytocin 10 Unit/mL Inj ONE; -Phenylephrine 10,000 mCg/mL Inj ONE; +Simethicone PO
[2016-07-06 16:24] VITALS: BP 128/84; PULSE 69; RESP 20; O2SAT 98
[2016-07-06 17:51] LABS: BASOPHILS % (AUTO) 0.5 % (0-3); EOSINOPHILS % (AUTO) 1.7 % (0-5); MONOCYTES % (AUTO) 4.9 % (4-12); Mean Corpuscular Hemoglobin 23.4 pg (27.0-35.0); Mean Corpuscular Volume 75.3 fL (81-100); NEUTROPHILS % (AUTO) 55.6 % (40-74); Platelet Count 428 bil/L (150-400)
--- NOTE | 2016-07-06 18:06 | ED.REPORT ---
HPI-General Illness Date of Service Jul 06, 2016 ED Provider: Jose R Figueroa DO A 30 year old female with a history of UTI, anxiety, and thirteen days ago presents to the ED complaining of fever, chills, and abdominal muscle soreness. These symptoms began three days ago. She also had a sore throat at the time but this has resolved. She denies neck stiffness. The pt was seen by her OBGYN when the symptoms began and had blood work done, but she has not heard the results. A strep test and flu test were both negative. 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 Complaint: Female Abdominal Pain Nursing Notes Reviewed: Yes Allergies: Coded Allergies: No Known Allergies (Verified , 07/23/04) Scheduled Docusate Sodium (Colace) 100 Mg Capsule 100 MG PO BID Ferrous Sulfate (Feosol) 325 Mg Tablet 325 MG PO TIDWM Meclizine (Bonine) 25 Mg Tab.chew 25 MG PO TID Pnv Cmb#21/Iron/Folic Acid ( Complete Caplet) 1 Each Tablet 1 EACH PO DAILY Vit#96/Ferrous Fum/FA ( Tablet) 1 Each Tablet 1 EACH PO DAILY Tamsulosin ER (Tamsulosin ER) 0.4 Mg Cap.er.24h 0.4 MG PO DAILY Triamcinolone Acetonide (Nasacort) 10.8 Ml [place] 10.8 ML NS DAILY Scheduled PRN ([Simethicone]) 80 MG CHEW 80 MG PO QID PRN PRN for gas Ibuprofen (Ibuprofen) 800 Mg Tablet 800 MG PO Q6H PRN PRN For Pain Ondansetron ODT (Ondansetron ODT) 8 Mg Tab.rapdis 8 MG PO Q4H PRN PRN For Nausea oxyCODONE-Acetaminophen 7.5-325 mg (oxyCODONE-Acetaminophen 7.5-325 mg) 1 Each Tablet 1-2 TAB PO Q6H PRN PRN For Pain General Time Seen by MD: 18:06 Chief Complaint Fever Hx Obtained From: Patient Arrived By: Walk-in Sudden in Onset?: No Onset Occurred: 3 days ago Symptom Duration: Since onset Recent Healthcare: Recent doctor visit, Recent hospitalization Similar Sx Previous: No Past Medical History Past Medical History Hx of kidney stones UTI Depression and anxiety Past Surgical History Exc. lipoma upper back Kidney stone removal Family History Noncontributory Smoking History Never Smoker Social History Alcohol Use: Denies alcohol use Drug Use: Denies drug use Other Social History: Local resident Ambulatory Status Independent Review of Systems Full Review of Systems Constitutional: Reports: Chills, Fever Respiratory: Denies: Non-productive cough, Shortness of breath GI: Reports: Abdominal pain (soreness) Musculoskeletal: Denies: Neck pain Skin: Denies Rash Complete sys rev & neg: except as marked. Physical Exam Vital Signs Vital Signs Date Time Temp Pulse Resp B/P Pulse Ox O2 Delivery O2 Flow Rate FiO2 07/06/16 22:35 36.3 69 20 128/84 98 Room Air 07/06/16 16:24 36.3 69 20 128/84 98 Room Air Initial VS: Reviewed General/Constitutional: Awake, Alert moderate distress due to pain Head / Eyes: Atraumatic, Normocephalic, PERRL, EOMI ENT: Atraumatic, Airway patent, Mucous membranes moist Neck: Atraumatic, Supple, Full range of motion Respiratory / Chest: Atraumatic, Breath sounds NL, Breath sounds = bilat, No respiratory distress Cardiovascular: Heart rate NL, Regular rhythm, Heart sounds NL Abdomen: Atraumatic, Soft suprapubic and pelvic tenderness Back: Atraumatic, Full range of motion Upper Extremities Upper Extremity / MS: Atraumatic, Full range of motion Lower Extremity / Pelvis / MS: Atraumatic, Full range of motion Skin: Color NL, No rash, Warm, Dry incision site healing well Neurologic: Oriented X3, Speech NL, No motor deficits, No sensory deficits Psychiatric: Affect NL, Mood NL Interpretation & Diagnostics Lab Results Interpretation Result Diagram: 07/06/16 1740 07/06/16 174 Test 07/06/16 17:40 07/06/16 19:57 White Blood Count 6.5th/mm3 (3.8-10.1) Red Blood Count 4.61mil/mm3 (3.90-5.20) Hemoglobin 10.8g/dL (12.0-15.6) Hematocrit 34.7% (35.0-46.0) Mean Corpuscular Volume 75.3fL (81-100) Mean Corpuscular Hemoglobin 23.4pg (27.0-35.0) Mean Corpuscular Hemoglobin Concent 31.1% (32.0-37.0) Red Cell Distribution Width 18.9% (12.3-15.4) Platelet Count 428bil/L (150-400) Neutrophils (%) (Auto) 55.6% (40-74) Lymphocytes (%) (Auto) 37.1% (14-46) Monocytes (%) (Auto) 4.9% (4-12) Eosinophils (%) (Auto) 1.7% (0-5) Basophils (%) (Auto) 0.5% (0-3) Sodium Level 140mEq/L (134-144) Potassium Level 4.2mEq/L (3.5-5.2) Chloride Level 103mEq/L (97-108) Carbon Dioxide Level 21mmol/L (18-29) Blood Urea Nitrogen 12mg/dL (6-20) Creatinine 0.66mg/dL (0.57-1.00) Estimat Glomerular Filtration Rate 149mL/min (>59) Glucose Level 82mg/dL (60-99) Lactic Acid Level 0.7mmol/L (0.4-2.0) Calcium Level 8.5mg/dL (8.5-10.1) Magnesium Level 1.9mg/dL (1.6-2.6) Total Bilirubin 0.2mg/dL (0.0-1.2) Aspartate Amino Transf (AST/SGOT) 13U/L (0-50) Alanine Aminotransferase (ALT/SGPT) 11U/L (0-32) Alkaline Phosphatase 97U/L (25-150) Total Protein 6.7g/dL (6.4-8.4) Albumin 3.8g/dL (3.4-5.0) Procalcitonin 0.04ng/mL (0.00-0.08) Urine Color Yellow (YELLOW) Urine Appearance Clear (CLEAR,HAZY) Urine pH 6.0 (5.0-8.0) Urine Specific [place] 1.025 (1.003-1.035) Urine Protein 30mg/dL (NEG,TRACE) Urine Glucose (UA) Negativemg/dL (NEGATIVE) Urine Ketones 15mg/dL (NEGATIVE) Urine Occult Blood Moderate (NEGATIVE) Urine Nitrite Negative (NEGATIVE) Urine Bilirubin Negative (NEGATIVE) Urine Urobilinogen Normalmg/dL (NORMAL) Urine Leukocyte Esterase Trace (NEGATIVE) Urine RBC 3-10/hpf (0-2) Urine WBC 0-5/hpf (0-5) Urine Epithelial Cells None/hpf (NONE-MOD) Urine Crystals None seen (NONE SEEN) Urine Bacteria Few/hpf (NONE-FEW) Urine Hyaline Casts None/lpf (NONE) Urine Granular Casts None seen (NONE SEEN) Urine Waxy Casts None seen (NONE SEEN) Urine Red Blood Cell Casts None seen (NONE SEEN) Urine White Blood Cell Casts None seen (NONE SEEN) Urine Mucus Present (None Seen) Urine Trichomonas None seen (NONE SEEN) Urine Yeast None (NONE SEEN) Urinalysis Comment None Urine Culture Reflexed Indicated Pulse Oximetry Interpretation Pulse Oximetry Interpretation: 98% on room air Pulse Oximetry: Pulse Ox normal X-Ray Chest Interpretation Chest Xray Interpretation: IMPRESSION: No acute cardiopulmonary disease. Dictated by: Sophia Polk M.D. on 07/06/2016 at 18:55 Approved by: Sophia Polk M.D. on 07/06/2016 at 18:56 Interpretation / Wet Read by: Interpret - Radiologist Re-Eval/Medical Decision Med Decision/Clinical Course Healthy 30-year-old female status post with fever chills body aches and pelvic pain. She has a very benign physical exam with mild uterine tenderness. Her incision looks good. Breasts were examined as normal. No signs of meningitis, sinusitis, pharyngitis, pneumonia or an acute abdomen. No evidence of cellulitis. Her diagnostics were underwhelming. Her influenza, CBC and urinalysis were normal. Her maternal risk scores very low. The only thing I can think of is if she has an early endometritis. This is a possibility and is high risk for this. I think she could be treated on the outpatient basis. 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 ( Arunacal) We will start her on Augmentin and have very close outpatient follow- up. Short course of Percocet provided for pain. Routine opiate warnings were given. Source of Hx: Old records Time of Eval: 21:13 Patient Status: Condition improved Re-Evaluation/Progress Note: Pt rechecked, who is resting comfortably and feeling significantly better. Radiology results, diagnosis, and the plan for discharge with follow up are discussed. The pt understands and agrees with the plan. All questions are addressed at this time. Consultation : Referral / Consult Name: Taniya Aguilera MD Call Returned at: 21:11 Office Associate: Agrees with eval, Agrees with plan Note: Spoke with Dr. Aguilera, pt's OBGYN, regarding pt's case. Dr. Aguilera agrees with the evaluation and plan. Counseled Regarding: Diagnosis, Lab results, Need for follow-up, When/why to return to ED Discharge & Departure Primary Impression: fever Disposition: Home Discharge Condition All VS Reviewed: Yes Condition: Stable Patient Instructions: Endometritis (ED) Additional Instructions: Take Augmentin twice daily for seven days. Take 1-2 Percocet every 6 hours as needed for severe pain. Do not drink, drive, or consume acetaminophen while taking the Percocet. Do not breast feed while taking the Percocet. Your testing , including x-ray, white blood cell count, and urinalysis were all normal. Follow up with your primary care physician next week for further evaluation. Return to the emergency department if you develop any new or worsening symptoms. Referrals: Yayo Antonio MD (PCP) Arthur Attestation Portions of this note were transcribed by Deepa Snider. I, Dr. Figueroa personally performed the history, physical exam and medical decision-making; I reviewed and confirmed the accuracy of the information in the transcribed note. Signed by: Arthur Hussein, 07/06/2016 and 21:26. copies to: Yayo Antonio MD, Todd P DO Jul 06, 2016 18:06 DEEPA SNIDER Jul 06, 2016 18:42
[2016-07-06 18:12] LABS: Magnesium 1.9 mg/dL (1.6-2.6)
[2016-07-06] MEDS ORDERED: Ondansetron 2 mg/mL 2 mL Inj IVPUSH PRN (18:35)
[2016-07-06] MEDS ORDERED: HYDROmorphone 0.5 mg/0.5 mL iSecure Syringe IVPUSH PRN (18:35)
[2016-07-06] MEDS ORDERED: 0.9% Sodium Chloride 1,000 ML IV SCH (18:35)
--- NOTE | 2016-07-06 18:56 | DRSVH ---
PROCEDURE: X-RAY CHEST, TWO VIEWS ([id number]) INDICATIONS: post operation fever TECHNIQUE: 2 views of the chest were acquired. COMPARISON: [facility], , CHEST 2VW, 10/31/2013, 9:24. FINDINGS: Surgical changes and devices: None. Lungs and pleura: No pleural effusions or pneumothorax. Lungs are clear. Mediastinum: Mediastinal contours are normal. Heart size is normal. Bones and chest wall: No suspicious bony abnormalities. Soft tissues appear unremarkable. IMPRESSION: No acute cardiopulmonary disease. Dictated by: Sophia Polk M.D. on 07/06/2016 at 18:55 Approved by: Sophia Polk M.D. on 07/06/2016 at 18:56
[2016-07-06 20:27] LABS: APPEARANCE,URINE CLEAR (CLEAR,HAZY); COLOR,URINE YELLOW (YELLOW)
[2016-07-06 20:28] LABS: OCCULT BLOOD,URINE MODERATE (NEGATIVE); UROBILINOGEN,URINE NORMAL (NORMAL)
[2016-07-06] MEDS ORDERED: Amoxicillin-Clav 875-125 mg Tablet PO ONE (21:15)
[2016-07-06] MEDS ORDERED: _oxyCODONE/APAP 5-325 mg Tablet PO PRN (21:20)
[2016-07-06 22:35] VITALS: BP 128/84; PULSE 69; RESP 20; O2SAT 98
[2016-08-26] MEDS ORDERED: LORA0.5T PO (15:53)
[2016-09-10] MEDS ORDERED: WARF7.5T4 PO ×2 (10:18)
[2016-09-10] MEDS ORDERED: OMEP20TA24 PO (17:10)
== END 2016-07-06 22:30 | disposition home or self-care (01) ==
LOC: SED 16:09
DX: O86.4 Pyrexia of unknown origin following delivery (principal); Z87.440 Personal history of urinary (tract) infections; Z87.442 Personal history of urinary calculi
CPT/HCPCS: 36415; 71020; 80053; 81000; 82308; 83605; 83735; 85025; 87086; 87804; 96361; 96374; 96375; 99285; G0463; J1170; J2405; J7030

== ENCOUNTER 2016-07-17 17:22 | Inpatient (IN) | payer OTHER ==
[~2016-07-17] VITALS: Ht 157.5 cm; Wt 65.5 kg
[2016-07-17 17:32] VITALS: BP 138/76; PULSE 69; RESP 20; O2SAT 98
--- NOTE | 2016-07-17 18:01 | ED.REPORT ---
HPI-Chest Pain Under 40 Date of Service Jul 17, 2016 ED Provider: Dr. Figueroa Pt is a 30 year old female who is 3 weeks post-, who presents to the ED via EMS with complaints of right sided chest pain that is exacerbated with deep breathing. She reports that she is feeling mildly short of breath and has a dry cough. Pt states that this started last night while she was sleeping. She denies and fevers, nausea, vomiting, or any tenderness in her breasts. Nursing Notes Stated Complaint: SHORT OF BREATH,CHEST PAIN Chief Complaint: Chest Pain Nursing Notes Reviewed: Yes Allergies: Coded Allergies: No Known Allergies (Verified , 07/23/04) Scheduled PRN Ibuprofen (Ibuprofen) 800 Mg Tablet 800 MG PO Q6H PRN PRN For Pain General Time Seen by MD: 18:01 Chief Complaint Chest pain Hx Obtained From: Patient Arrived By: Ambulance Sudden in Onset?: Yes Onset Occurred: 9 - 12 hours ago Symptom Duration: Since onset Location: : Chest right Quality: Painful Severity: Current: Mild Severity: Maximum: Moderate Similar Sx Previous: Yes Past Medical History Past Medical History Hx of kidney stones UTI Depression and anxiety Past Surgical History Exc. lipoma upper back Kidney stone removal Family History Noncontributory Smoking History Never Smoker Social History Alcohol Use: Denies alcohol use Drug Use: Denies drug use Other Social History: Local resident Ambulatory Status Independent Review of Systems Constitutional: Denies: Chills, Fever, Malaise, Weakness - generalized Respiratory: Reports: Non-productive cough, Shortness of breath, Denies: Wheezing Cardiovascular: Reports: Chest pain, Denies: Syncope GI: Denies: Abdominal pain, Constipation, Diarrhea, Nausea, Vomiting Musculoskeletal: Denies: Back pain, Neck pain Skin: Denies Diaphoresis Neurologic: Denies: Dizziness, Syncope, Weakness Complete sys rev & neg: except as marked. Physical Exam Initial Vital Signs Vital Signs (First) Date Time Temp Pulse Resp B/P Pulse Ox O2 Delivery O2 Flow Rate FiO2 07/17/16 17:32 36.5 69 20 138/76 98 Room Air Initial VS: Reviewed Head / Eyes: Atraumatic, Normocephalic, PERRL ENT: Mucous membranes moist, Conjunctiva normal, No scleral icterus Neck: Supple, Non-tender, Full range of motion Abdomen / GI: Soft, Non-tender, No guarding, No rebound, No distention Skin: Warm, Dry, No cyanosis General/Constitutional: Awake, Alert, Well appearing, Cooperative Behavior: Positive: Tearful Respiratory / Chest: Atraumatic, Breath sounds NL, Breath sounds = bilat, No respiratory distress Pleuritic chest pain Cardiovascular: Heart rate NL, Regular rhythm, Heart sounds NL, No gallop, No murmurs, No rubs Interpretation & Diagnostics Lab Results Interpretation Result Diagram: 07/17/16 1730 07/17/16 1730 Test 07/17/16 17:30 White Blood Count 10.5th/mm3 (3.8-10.1) Red Blood Count 4.56mil/mm3 (3.90-5.20) Hemoglobin 10.8g/dL (12.0-15.6) Hematocrit 34.4% (35.0-46.0) Mean Corpuscular Volume 75.4fL (81-100) Mean Corpuscular Hemoglobin 23.7pg (27.0-35.0) Mean Corpuscular Hemoglobin Concent 31.4% (32.0-37.0) Red Cell Distribution Width 18.2% (12.3-15.4) Platelet Count 495bil/L (150-400) Neutrophils (%) (Auto) 63.0% (40-74) Lymphocytes (%) (Auto) 25.5% (14-46) Monocytes (%) (Auto) 7.5% (4-12) Eosinophils (%) (Auto) 3.7% (0-5) Basophils (%) (Auto) 0.2% (0-3) Hold Purple Top Tube Received (Received) Activated Partial Thromboplast Time 27.3sec (22.8-33.0) D-Dimer 0.9mg/L (<0.50) Hold Blue Top Tube Received (Received) Sodium Level 139mEq/L (134-144) Potassium Level 3.7mEq/L (3.5-5.2) Chloride Level 103mEq/L (97-108) Carbon Dioxide Level 22mmol/L (18-29) Blood Urea Nitrogen 12mg/dL (6-20) Creatinine 0.63mg/dL (0.57-1.00) Estimat Glomerular Filtration Rate 157mL/min (>59) Glucose Level 94mg/dL (60-99) Calcium Level 8.9mg/dL (8.5-10.1) Total Bilirubin 0.2mg/dL (0.0-1.2) Aspartate Amino Transf (AST/SGOT) 15U/L (0-50) Alanine Aminotransferase (ALT/SGPT) 10U/L (0-32) Alkaline Phosphatase 102U/L (25-150) Troponin T < 0.010ug/L (0.0-0.011) Total Protein 7.1g/dL (6.4-8.4) Albumin 4.3g/dL (3.4-5.0) Hold Red Top Tube Received (Received) Hold Kila Top Tube Received (Received) Lab Results Interpretation: Angiography CT: IMPRESSION: Bilateral definite pulmonary emboli in the lower lobes right more than left. Lungs are clear. No effusions are seen. Dictated by: Easton Gutiérrez M.D. on 07/17/2016 at 19:56 ECG Interpretation ECG Interpretation: SR - 59 Atrial Premature complex Sinus PACs Time: 18:21 Interpreted by: ED physician Re-Eval/Medical Decision Med Decision/Clinical Course Bilateral pulmonary emboli without evidence of acute right heart strain. We will treat with IV heparin and admit to the progressive care unit. She will be watched closely as she is recently . Source of Hx: Old records Re-Evaluation/Progress : Time of Eval: 19:59 Re-Evaluation/Progress Note: Pt is rechecked and informed of her imaging results and the plan to admit her to the hospital at this time. She understands and agrees, all questions are addressed. Consultation : Referral / Consult Name: Francesca Ware DO Consulted With: Hospitalist Call Returned at: 20:31 Apron Trimmer: Will see patient, Agrees with plan, Accepts admit Counseled Regarding: Diagnosis, Lab results, Need for follow-up, Need for admission Discharge & Departure Primary Impression: Pulmonary embolism, bilateral Disposition: ADMITTED TO HOSPITAL Discharge Condition All VS Reviewed: Yes Condition: Stable Referrals: Yayo Antonio MD (PCP) Crit Care Except Billable Proc Time Spent: 75-104 minutes Services Performed: Patient management by me, Time spent at bedside, Reviewing test results, Reviewing imaging, Discussing patient care, Documentation in record, Time with fam/surrogate Scribe Attestation Portions of this note were transcribed by Angélica Deal. Dr. Henry Urban personally performed the history, physical exam and medical decision-making; I reviewed and confirmed the accuracy of the information in the transcribed note. Signed by: Arthur Garrett, 07/17/2016 21:15 copies to: Yayo Antonio MD, Todd P DO Jul 17, 2016 18:01 ABDIFATAH DEAL Jul 17, 2016 18:28 Arthur Attestation Portions of this note were transcribed by Angélica Deal. Dr. Henry Urban personally performed the history, physical exam and medical decision-making; I reviewed and confirmed the accuracy of the information in the transcribed note. Signed by: Arthur Garrett, 07/17/2016 21:15 copies to: Yayo Antonio MD, Todd P DO Jul 17, 2016 18:01 ABDIFATAH DEAL Jul 17, 2016 18:28
[2016-07-17 18:20] LABS: BASOPHILS % (AUTO) 0.2 % (0-3); EOSINOPHILS % (AUTO) 3.7 % (0-5); MONOCYTES % (AUTO) 7.5 % (4-12); Mean Corpuscular Hemoglobin 23.7 pg (27.0-35.0); Mean Corpuscular Volume 75.4 fL (81-100); Platelet Count 495 bil/L (150-400)
[2016-07-17 18:36] LABS: TROPONIN T < 0.010 ug/L (0.0-0.011)
[2016-07-17] MEDS ORDERED: Ondansetron 2 mg/mL 2 mL Inj IVPUSH PRN ×2 (19:25→20:25)
[2016-07-17] MEDS: HYDROmorphone 0.5 mg/0.5 mL iSecure Syringe IVPUSH PRN ×3 (19:42→21:05)
[2016-07-17 19:44] VITALS: BP 150/81; PULSE 52; RESP 20; O2SAT 100
[2016-07-17] MEDS ORDERED: Heparin 5,000 Unit/mL Inj IVPUSH PRN (20:00)
--- NOTE | 2016-07-17 20:01 | DRSVH ---
PROCEDURE: CT ANGIO CHEST PULMONARY EMBOLISM ([id number]) INDICATIONS: post op pleuritic pain, elelvated ddimer TECHNIQUE: After the administration of intravenous contrast, 2 mm thick sections acquired from the pulmonary api elvin to the posterior costophrenic angles. 3-dimensional maximum intensity projection (MIP) coronal a nd sagittal reformats were then acquired through the thorax. For radiation dose reduction, the follo wing was used: automated exposure control, adjustment of mA and/or kV according to patient size. COMPARISON: None. FINDINGS: Image quality: Excellent. Pulmonary arteries: Pulmonary arteries are normal in size, and demonstrate bilateral lower lobe intr aluminal filling defects to suggest central pulmonary embolism. Lungs and pleura: Lungs are clear. No pleural effusions or pneumothorax. Central and peripheral ai rways are patent. Mediastinum: Heart size is normal, without pericardial effusion. No mediastinal or hilar adenopathy . Thoracic aorta is normal in caliber and enhancement. Esophagus is normal in caliber, without hiat al hernia. Bones and chest wall: No suspicious bony lesions. Ribs and thoracic spine appear intact throughout. Thyroid gland is within normal limits.. No axillary or supraclavicular adenopathy. Abdomen: Visualized upper abdominal solid organs appear normal in the early arterial phase of enhanc ement. IMPRESSION: Bilateral definite pulmonary emboli in the lower lobes right more than left. Lungs are clear. No effusions are seen. Dictated by: Easton Gutiérrez M.D. on 07/17/2016 at 19:56 Approved by: Easton Gutiérrez M.D. on 07/17/2016 at 19:59
[2016-07-17] MEDS ORDERED: Alum-Mag Hydrox-Simeth 30 mL Suspension PO PRN (20:25)
[2016-07-17] MEDS ORDERED: Polyethylene Glycol (PEG) 17 Gm Powder PO PRN (20:25)
[2016-07-17] MEDS: Heparin 25K Unit/500mL 0.45 NS 25,000 UNIT in IV Premix 1 EACH IV SCH (20:27)
--- NOTE | 2016-07-17 20:52 | NUR ---
Admit nurse note Admission assessment completed in the ER. Pt. c/o 10/25 pain and it clutching the side rail and her chest, taking shallow breaths and talking with short sentences due to pain. Pain meds have been delivered frequently and pt. states they help only minimally. Pt. is 4 weeks after delivery. She states she already misses her baby but is not and baby is safe with her parents overnight. NKA verified, med list reviewed. Pt. declines smoking cessation information and says she is quitting this week. Pt. reports hx anxiety which has been better since she stopped drinking energy drinks. Pt. encouraged to continue smoking cessation and energy drink abstinence. Pt. oriented to room and call covarrubias. Report called to Allyn Bragg.
[2016-07-17 21:27] VITALS: BP 134/68; PULSE 72; RESP 20; O2SAT 100
[2016-07-17 21:47] VITALS: PULSE 63
[2016-07-17 21:51] VITALS: BP 142/75; PULSE 58; RESP 20; O2SAT 100
[2016-07-17] MEDS: HYDROmorphone 1 mg/mL Inj IVPUSH PRN (22:02)
--- NOTE | 2016-07-17 22:49 | PCM.HPMED ---
Subjective Date of Service Jul 17, 2016 Primary Provider: Admitting Physician: Francesca Ware DO Primary Care Physician: Yayo Antonio MD Attending Physician: Francesca Ware DO Admit Status: From the Emergency Department Chief Complaint: chest pain History of Present Illness: 30yoF with past medical history of nephrolithiasis s/p stent placement and 3 weeks post presenting to the ED with 12+ hours of chest pain. Patient states that she woke to feed her a little after midnight on 2016 and began to have 6-7/10 non-radiating substernal chest pain worse with inspiration. She was unable to place her on her chest due to increase of pain. She waited until her PCP office was open then requested an appointment. She was informed there were no appointments available and to go to urgent care if her symptoms worsened. By the time she received a call back her symptoms had progressed and she was on her way to [facility] ED. CTPA was completed with findings of "definite bilateral pulmonary emboli in the lower lobes right greater than left." At the time of interview patient with chest pain with deep inspiration and difficulties "catching her breath" because of inspiratory discomfort. She denies other symptoms at this time aside from urinary leakage which has been present since ureter stent placed during . Patient is 3 weeks post op () from a relatively uncomplicated . She was seen at [facility] on two separate occasions d/t nephrolithiasis with ureter stent placement Stent is scheduled for removal next week by [facility] urology. 1 week following delivery she was seen at [facility] ED for endometritis and was given a short course of antibiotics with full resolution of symptoms. She is currently not . Patient has no personal history or family history of blood clots. Recent delivery via . Review of Systems: complete review of systems obtained. positive as per HPI otherwise negative. Allergies Coded Allergies: No Known Allergies (Verified , 07/23/04) Home Medications No current home medications PMH Hx of kidney stones UTI Depression and anxiety Endometriosis Endometritis Surgical History Exc. 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 Neck: Supple, no Thyromegaly, trachea central. Chest & Lungs: CTA bilateral, no rhonchi, rales, wheezes, good respiratory effort Cardiovascular: Normal S1, Normal S2, No Murmurs/Rubs/Gallops, Regular Rate/ Rhythm, (No JVD, no peripheral edema) Pulses: Radial (present and equal), Dorsalis Pedi (present and equal) Abdomen: Soft, Non-tender, Non-distended, Normoactive bowel tones. well healed lower abdominal incision Musculoskeletal: Unremarkable. Normal range of motion, no swollen or erythematous joints Extremities: no leg edema, no cyanosis, no clubbing. Skin: No rashes. Warm and dry, no erythematous areas Neurological: Grossly neurologically intact, has generalized weakness, Normal Speech, Sensation Intact Lymphatic: Lymph nodes Cervical and Axillary not palpable. Lab and Diagnostics Result Diagram: 07/17/16172907/17/161729 X-Rays, CTs and MRIs Patient Name: DANIEL BLAIR MR#: [id number] Location[place] [facility] [place] Ordering Phys: Jose R Figueroa DO Date of Service: 07/17/161920 PROCEDURE: CT ANGIO CHEST PULMONARY EMBOLISM ([id number]) INDICATIONS: post op pleuritic pain, elelvated ddimer TECHNIQUE: After the administration of intravenous contrast, 2 mm thick sections acquired from the pulmonary apices to the posterior costophrenic angles. 3-dimensional maximum intensity projection (MIP) coronal and sagittal reformats were then acquired through the thorax. For radiation dose reduction, the following was used: automated exposure control, adjustment of mA and/or kV according to patient size. COMPARISON: None. FINDINGS: Image quality: Excellent. Pulmonary arteries: Pulmonary arteries are normal in size, and demonstrate bilateral lower lobe intraluminal filling defects to suggest central pulmonary embolism. Lungs and pleura: Lungs are clear. No pleural effusions or pneumothorax. Central and peripheral airways are patent. Mediastinum: Heart size is normal, without pericardial effusion. No mediastinal or hilar adenopathy. Thoracic aorta is normal in caliber and enhancement. Esophagus is normal in caliber, without hiatal hernia. Bones and chest wall: No suspicious bony lesions. Ribs and thoracic spine appear intact throughout. Thyroid gland is within normal limits.. No axillary or supraclavicular adenopathy. Abdomen: Visualized upper abdominal solid organs appear normal in the early arterial phase of enhancement. IMPRESSION: Bilateral definite pulmonary emboli in the lower lobes right more than left. Lungs are clear. No effusions are seen. Dictated by: Easton Gutiérrez M.D. on 07/17/2016 at 19:56 Approved by: Easton Gutiérrez M.D. on 07/17/2016 at 19:59 Assessment & Plan 30yoF with past medical history of nephrolithiasis s/p stent placement and 3 weeks post presenting to the ED with 12+ hours of chest pain with findings of bilateral pulmonary embolism. Bilateral pulmonary embolism, acute, POA -chest pain on presentation secondary to pulmonary embolism -3 weeks post , delivery via -no personal or family history of DVT / PE -current tobacco use, ready to quit, restarted use following delivery -NOT at this time -heparin bolus and gtt started in ED, will continue -vital signs are stable at this time, PCC status with close monitoring of vitals overnight -ECHO, doppler lower extremity ordered for AM -0.5-1mg hydromorphone q2HR PRN -consider cardiology consult with clinical change / ECHO results Tobacco dependency, chronic, POA -discussed the importance of tobacco cessation with patient -she is ready to stop smoking at this time Microcytic anemia, chronic, POA -improved from previous documented levels -patient not taking iron supplementation as advised following delivery d/t stomach upset -will continue to monitor s/p cesarian section, chronic, POA -patient is 3 weeks post -no complications following delivery -minimal blood loss as per patient nephrolithiasis, chronic, POA -patient with history of stent placement at [facility] while -h/o nephrolithiasis with all pregnancies -s/p stent placement with scheduled removal by Dr. Bartlett in 1 week Pain Evaluation: Adequate Pain Control GI Prophylaxis: Not indicated VTE Prophylaxis: Other (heparin gtt) Resuscitation Status: CPR: Attempt Resuscitation Francesca Ware DO Jul 17, 2016 22:49
--- NOTE | 2016-07-17 23:47 | NUR ---
Venous Doppler results US Suksh Tech. notified this RN at 0146 that bilateral legs are negative for DVT's. Tech reported that she is not going to push results through for a night reading. paged with results and that night read will not be done.
[2016-07-17 23:54] VITALS: BP 127/83; PULSE 56; O2SAT 100
[2016-07-18] VITALS (7 sets, daily range): BP systolic 98–133; BP diastolic 63–81; PULSE 53–67; RESP 18–24; O2SAT 100
[2016-07-18] MEDS: HYDROmorphone 1 mg/mL Inj IVPUSH PRN ×5 (00:09→10:28)
--- NOTE | 2016-07-18 00:29 | NUR ---
Admit to room Patient arrived to room at 2145 with heparin drip already started in the ER. Patient has chest pain 7/10. Patient continues to have SOB with inspiration. Patient placed on 2 L O2, dilaudid 1 mg given and patient placed on continuous oximetry. Patient pain decreased to 4/10 with some improved breathing.
--- NOTE | 2016-07-18 05:27 | NUR ---
Shortness of Breath/Pain/Heparin Patient continues to have significant shortness of breath, although she states that it is about the same as it has been and is not getting worse. Unable to take a deep breath and significantly increased dyspnea with any movement or exertion. Chest pain up to 9/10 on pain scale that is responsive to 1mg IVP dilauded. Heparin continues at 18units/kg/hour; PTT at 0300 of 80.9. Continue to monitor.
[2016-07-18 05:28] LABS: BASOPHILS % (AUTO) 0.4 % (0-3); EOSINOPHILS % (AUTO) 4.9 % (0-5); MONOCYTES % (AUTO) 7.7 % (4-12); Mean Corpuscular Hemoglobin 23.7 pg (27.0-35.0); Mean Corpuscular Volume 76.1 fL (81-100); NEUTROPHILS % (AUTO) 48.8 % (40-74); Platelet Count 372 bil/L (150-400)
--- NOTE | 2016-07-18 08:29 | NUR ---
Social Work: Screening Data: Pt is a 30 y/o female admitted for bilateral PE. Pt's PCP is Dr Antonio, pt's insurance is [employer]. EMR reviewed. No d/c planning needs anticipated at this time. LEGAL BILLING SPECIALIST will continue to follow if needs arise. Assessment: Pt who is independent at baseline. Plan: Pt will d/c home via POV when medically stable. No d/c planning needs anticipated at this time. LEGAL BILLING SPECIALIST will continue to follow if needs arise. ALEX Bryant
--- NOTE | 2016-07-18 09:42 | DRSVH ---
PROCEDURE: US VENOUS LEG DUPLEX BILATERAL INDICATIONS: PE TECHNIQUE: Real-time imaging, as well as color and pulse Doppler interrogation, were performed of the deep veins of both legs from the inguinal ligament to the popliteal fossa. COMPARISON: None. FINDINGS: The deep veins are normally compressible, and free of intraluminal thrombus. Color and pu lse Doppler demonstrate normal phasic intravascular flow. There is normal augmentation response to d istal compression maneuver. IMPRESSION: No deep venous thrombosis identified within either the left or right lower extremities. Dictated by: Remi FORRESTER Interpreted: Louise Billings MD on 07/18/2016 at 9:41 Transcribed by: AJ on 07/18/2016 at 9:42 Approved by: Louise Billings M.D. on 07/18/2016 at 14:55
--- NOTE | 2016-07-18 10:42 | DRSVH ---
[facility] [address] [place] [address] Echocardiogram Report Name: DANIEL BLAIR JStudy Date: 07/18Height: 62 in Hospital Exam Location: [facility] Weight: 146 lb Gender: Female BSA: 1.7 m2 : 1985 Age: 30 yrs BP: 110/71 mmHg Reason For Study: BILATERAL PULMONARY EMBOLISM Ordering Physician: HOSPITALIST [facility] Performed By: Luis Easley Referring Physician: Dr. Yayo Antonio Interpretation Summary 1. Normal left ventricular size, wall thickness and systolic function with an estimated EF of 60-65% 2. Normal right ventricular size and systolic function. The estimated RVSP is 30 mm Hg 3. No valvular pathology appreciated There is no old study for comparison Procedure: A two-dimensional transthoracic echocardiogram with color flow and Doppler was performed. The study quality was technically good. There is no prior echocardiogram noted for this patient. The patient was in normal sinus rhythm during the exam. Left Ventricle: The left ventricle is normal in size. There is normal left ventricular wall thickness. The ejection fraction is estimated to be 60-65%. There are no focal wall motion abnormalities. Right Ventricle: The right ventricle is normal in size and function. Atria: The left atrium is mildly dilated. Right atrial size is normal. The interatrial septum is intact with no evidence for an atrial septal defect. No color doppler evidence for an ASD. Mitral Valve: The mitral valve is normal in structure and function. There is trace mitral regurgitation. Aortic Valve: The aortic valve is trileaflet. The aortic valve opens well. No aortic regurgitation is present. Tricuspid Valve: The tricuspid valve is normal in structure and function. There is mild tricuspid regurgitation. The right ventricular systolic pressure is estimated at 30 mmHg assuming a right atrial pressure of 3 mm Hg. Pulmonic Valve: The pulmonic valve is normal in structure and function. There is trace pulmonic regurgitation. Great Vessels: The aortic root is normal size. The dimensions of the ascending aorta are normal. The pulmonary artery is normal size. The IVC is of normal diameter and collapses greater than 50% with a sniff. This suggests a low right atrial pressure of 3 mm Hg. Pericardium/ Pleura There is no pericardial effusion. There is no pleural effusion. MMode/2D Measurements & Calculations LVIDd: 4.9 cm LA dimension: 3.6 cm RA long axis Ao root diam LVIDs: 2.5 cm FS: 48.7 % LA A2 area: 19.9 cm RA area Aortic Jxn: 1.9 cm EPSS: 0.33 cm LA A4 area: 23.6 cm asc Aorta Diam IVSd: 0.81 cm LA length (vol) : 16.1 cm LVPWd: 0.62 cm RA vol Ao Arch Diam (Prox LA vol: 77.6 ml : 45.2 ml Trans): 2.3 cm LA vol index RA : 27.0 mm2 IVC diam: 1.5 cm LV gould. diameter/BSA LV sys. diameter/BSA RVD1 (basal) RVD2 (mid): 3.2 cm (cm/m^2): 3.0 (cm/m^2): 1.5 Doppler Measurements & Calculations Ao V2 max MV E max ruperto MV E/A: 1.2 TR max ruperto : 149.1 cm/sec : 86.0 cm/sec Med Peak E' Ruperto : 257.5 cm/sec Ao max PG MV A max ruperto TR max P.5 mmHg : 8.9 mmHg : 71.9 cm/sec E/E' med: 10.6 PA V2 max: 96.7 cm/sec Ao mean PG Lat Peak E' Ruperto PA mean P.2 mmHg : 5.5 mmHg PA Accel Time: 0.19 sec E/E' lat: 7.4 E/e' average: 9.0 Pulm A Revs Dur MV A dur: 0.11 sec MV dec time Ao V2 mean PA V2 mean Pulm A Revs Dur - MV A : 0.20 sec : 113.4 cm/sec : 71.3 cm/sec Dur: -0.02 msec Ao V2 VTI PA pr(Accel) : 31.4 cm : -5.8 mmHg Reading Physician:10:41 AM
--- NOTE | 2016-07-18 12:36 | PCM.CONPHA ---
Subjective Date of Service: Jul 18, 2016 chest pain Reason for Pharmacy Consult: Anticoagulation Management Objective Vital Signs Date Time Temp Pulse Resp B/P Pulse Ox O2 Delivery O2 Flow Rate FiO2 07/18/16 10:24 36.5 65 20 98/63 100 Nasal Cannula 2.00 07/18/16 09:07 Supplement Oxygen 07/18/16 08:00 66 07/18/16 05:45 36.7 64 18 110/71 100 Nasal Cannula 2.00 07/18/16 02:41 36.6 67 18 133/81 100 Nasal Cannula 2.00 07/18/16 02:41 Supplement Oxygen 07/18/16 00:39 Supplement Oxygen 07/17/16 23:54 36.7 56 127/83 100 Nasal Cannula 2.00 07/17/16 21:51 36.3 58 20 142/75 100 Room Air 07/17/16 21:47 63 07/17/16 21:27 36.2 72 20 134/68 100 07/17/16 19:44 52 20 150/81 100 Room Air 07/17/16 17:32 36.5 69 20 138/76 98 Room Air Weight (Kilograms): 66.000 Height (Feet): 5 Height (Inches): 2.00 Test 07/17/16 17:30 07/18/16 05:10 07/18/16 08:03 Hold Purple Top Tube Received (Received) D-Dimer 0.9mg/L (<0.50) Hold Blue Top Tube Received (Received) Total Bilirubin 0.2mg/dL (0.0-1.2) Aspartate Amino Transf (AST/SGOT) 15U/L (0-50) Alanine Aminotransferase (ALT/SGPT) 10U/L (0-32) Alkaline Phosphatase 102U/L (25-150) Troponin T < 0.010ug/L (0.0-0.011) Total Protein 7.1g/dL (6.4-8.4) Albumin 4.3g/dL (3.4-5.0) Hold Red Top Tube Received (Received) Hold [place] Top Tube Received (Received) White Blood Count 8.4th/mm3 (3.8-10.1) Red Blood Count 4.18mil/mm3 (3.90-5.20) Hemoglobin 9.9g/dL (12.0-15.6) Hematocrit 31.8% (35.0-46.0) Mean Corpuscular Volume 76.1fL (81-100) Mean Corpuscular Hemoglobin 23.7pg (27.0-35.0) Mean Corpuscular Hemoglobin Concent 31.1% (32.0-37.0) Red Cell Distribution Width 18.0% (12.3-15.4) Platelet Count 372bil/L (150-400) Neutrophils (%) (Auto) 48.8% (40-74) Lymphocytes (%) (Auto) 38.1% (14-46) Monocytes (%) (Auto) 7.7% (4-12) Eosinophils (%) (Auto) 4.9% (0-5) Basophils (%) (Auto) 0.4% (0-3) Sodium Level 140mEq/L (134-144) Potassium Level 3.9mEq/L (3.5-5.2) Chloride Level 104mEq/L (97-108) Carbon Dioxide Level 23mmol/L (18-29) Blood Urea Nitrogen 9mg/dL (6-20) Creatinine 0.62mg/dL (0.57-1.00) Estimat Glomerular Filtration Rate 160mL/min (>59) Glucose Level 85mg/dL (60-99) Calcium Level 8.3mg/dL (8.5-10.1) Activated Partial Thromboplast Time 63.8sec (22.8-33.0) Assessment/Plan Assessment/Plan Pt is a 30yo female 3 weeks post- starting warfarin therapy for a bilateral PE. Pt is also on a heparin gtt. Her goal INR is 2-3. Pt did not have a baseline INR done, will draw one at 14:00 today with next PTT draw. Hgb/ hct=9.8/31.8, plts 372. Will give warfarin 5mg PO tonight. Daily INR ordered. Pharmacy will follow this patient for warfarin therapy. Coreen Tripathi PharmD Jul 18, 2016 12:36
--- NOTE | 2016-07-18 14:15 | PCM.PNMED ---
Subjective Date of Service Jul 18, 2016 Subjective complains of ongoing pleuritic chest pain. denies any lightheadedness, n/v Exam Vital Signs Vital Sign - Last Date Time Temp Pulse Resp B/P Pulse Ox O2 Delivery O2 Flow Rate FiO2 07/18/16 12:59 36.7 54 22 122/73 100 Nasal Cannula 2.00 Intake and Output 07/17/16 07/17/16 07/18/16 Cumulative From/Thru 15:00 23:00 07:00 07/17/16 17:32 - 07/18/16 06:21 Intake Total 481 ml 481 ml Balance 481 ml 481 ml Intake Oral 250 ml 250 ml IV Total 231 ml 231 ml # Voids 1 1 # Bowel Movements 0 0 General: Alert, Oriented X3, Cooperative, No Acute Distress Head: Normal Eyes: Scleral Anicteric Nose: Mucous Membr Moist/[place] Mouth: Mucous Membr Moist/[place] Neck: Supple Chest & Lungs: Chest Wall Normal, Clear to auscultation & percussion Cardiovascular: Regular Rate/Rhythm Pulses: NL carotid, radial, femoral, DP, PT Abdomen: Non-tender, Non-distended, Normoactive bowel tones, Soft Extremities: No cyanosis/clubbing/edma bilat Neurological: Grossly Neurologically Intact, Normal Speech IVs and Medications Medications Reviewed: Medications were reviewed in detail Lab and Diagnostics Result Diagram: 07/18/1610 07/18/16 0510 X-Rays, CTs and MRIs Patient Name: DANIEL BLAIR MR#: [id number] Location: [facility] [place] Ordering Phys: Jose R Figueroa DO Date of Service: 07/17/161920 PROCEDURE: CT ANGIO CHEST PULMONARY EMBOLISM ([id number]) INDICATIONS: post op pleuritic pain, elelvated ddimer TECHNIQUE: After the administration of intravenous contrast, 2 mm thick sections acquired from the pulmonary apices to the posterior costophrenic angles. 3-dimensional maximum intensity projection (MIP) coronal and sagittal reformats were then acquired through the thorax. For radiation dose reduction, the following was used: automated exposure control, adjustment of mA and/or kV according to patient size. COMPARISON: None. FINDINGS: Image quality: Excellent. Pulmonary arteries: Pulmonary arteries are normal in size, and demonstrate bilateral lower lobe intraluminal filling defects to suggest central pulmonary embolism. Lungs and pleura: Lungs are clear. No pleural effusions or pneumothorax. Central and peripheral airways are patent. Mediastinum: Heart size is normal, without pericardial effusion. No mediastinal or hilar adenopathy. Thoracic aorta is normal in caliber and enhancement. Esophagus is normal in caliber, without hiatal hernia. Bones and chest wall: No suspicious bony lesions. Ribs and thoracic spine appear intact throughout. Thyroid gland is within normal limits.. No axillary or supraclavicular adenopathy. Abdomen: Visualized upper abdominal solid organs appear normal in the early arterial phase of enhancement. IMPRESSION: Bilateral definite pulmonary emboli in the lower lobes right more than left. Lungs are clear. No effusions are seen. Dictated by: Easton Gutiérrez M.D. on 07/17/2016 at 19:56 Approved by: Easton Gutiérrez M.D. on 07/17/2016 at 19:59 Assessment & Plan 30yoF with past medical history of nephrolithiasis s/p stent placement and 3 weeks post presenting to the ED with 12+ hours of chest pain with findings of bilateral pulmonary embolism. # Bilateral pulmonary embolism, acute, POA -chest pain on presentation secondary to pulmonary embolism -3 weeks post , delivery via -no personal or family history of DVT / PE -current tobacco use, ready to quit, restarted use following delivery -NOT at this time -f/u pending ECHO, Doppler lower extremity -c/w pain control as needed -c/w heparin drip and bridge to Coumadin (to be dosed by pharmacy) -f/u daily INR (goal 2-3) # Tobacco dependency, chronic, POA -discussed the importance of tobacco cessation with patient on admission -nicotine patch as needed # Microcytic anemia, chronic, POA -improved from previous documented levels -patient not taking iron supplementation as advised following delivery d/t stomach upset -will continue to monitor # s/p cesarian section, chronic, POA -patient is 3 weeks post -no complications following delivery -minimal blood loss as per patient # nephrolithiasis, chronic, POA -patient with history of stent placement at [facility] while -h/o nephrolithiasis with all pregnancies -s/p stent placement with scheduled removal by Dr. Bartlett in 1 week GI Prophylaxis: Not indicated VTE Prophylaxis: Other (heparin gtt) Resuscitation Status: CPR: Attempt Resuscitation Time spent 30 min Oleg Mittal Jul 18, 2016 14:15
[2016-07-18 15:21] LABS: INR 0.95 ratio
[2016-07-18] MEDS: Heparin 25K Unit/500mL 0.45 NS 25,000 UNIT in IV Premix 1 EACH IV SCH (16:21)
[2016-07-18] MEDS: LORazepam 1 mg Tablet PO PRN (17:32)
--- NOTE | 2016-07-18 23:02 | NUR ---
anxiety / pain patient very anxious about her pain. rates pain to her chest with deep breath an 8. 2.5 liters nc. bedside pulse oximetry 99%. lungs are slightly decreased with faint crackles. medicated as documented with morphine 2 mg iv push. and given tylenol. pain decreases to 4-5. tolerable. patient falls asleep. given senna for constipation. patient tolerating po fluids. given warfarin teaching booklet as documented. given emotional support.
[2016-07-19] VITALS (8 sets, daily range): BP systolic 110–138; BP diastolic 71–87; PULSE 45–94; RESP 18–22; O2SAT 96–99
[2016-07-19 06:14] LABS: INR 0.95 ratio
--- NOTE | 2016-07-19 06:48 | NUR ---
activity patient slept well after she fell asleep (around 0100) no anxiety. comfortable. care ongoin.
--- NOTE | 2016-07-19 12:47 | PCM.PHAPRO ---
Progress Warfarin Management by Pharmacy: -Indication: bilateral PE -Inr Goal: 2-3 -concurrent anticoagulation: Heparin Infusion -Home Dose: new warfarin start -Coag Trends: SLF -Jul 19-Jul 0.95 0.95 -Plan: will continue with warfarin 5mg this evening Bailey [facility] Jul 19, 2016 12:47
[2016-07-19] MEDS: Heparin 25K Unit/500mL 0.45 NS 25,000 UNIT in IV Premix 1 EACH IV SCH (15:01)
--- NOTE | 2016-07-19 15:25 | NUR ---
Weaned patient Off Oxygen/ Pain Pt was on 2.5L NC until 1000 with an Sp02 of 99%. Decreased to 1L and reassessed over 2 hours and patient maintained an Sp02 of 99%. Changed to room air and monitored over 3 hours and patient maintained an Sp02 of 95-98%. Patient reported a inspirational pleuritic chest pain of 7/10 that increased with coughing and ambulation pre-pain medication of 2mg morphine Q2h. Post-pain medication pt reported 4/10.
--- NOTE | 2016-07-19 16:02 | PCM.PNMED ---
Subjective Date of Service Jul 19, 2016 Subjective Reports ongoing pleuritic chest pain. denies any lightheadedness, n/v Exam Vital Signs Vital Sign - Last Date Time Temp Pulse Resp B/P Pulse Ox O2 Delivery O2 Flow Rate FiO2 07/19/16 13:42 36.9 94 20 110/73 97 Nasal Cannula 2.50 Intake and Output 07/18/16 07/18/16 07/19/16 Cumulative From/Thru 15:00 23:00 07:00 07/17/16 17:32 - 07/19/16 05:58 Intake Total 837 ml 200 ml 1518 ml Balance 837 ml 200 ml 1518 ml Intake Oral 837 ml 200 ml 1287 ml IV Total 231 ml # Voids 2 1 4 # Bowel Movements 0 0 Exam General: Alert, Oriented X3, Cooperative, No Acute Distress Head: Normal Eyes: Scleral Anicteric Nose: Mucous Membr Moist/[place] Mouth: Mucous Membr Moist/[place] Neck: Supple Chest & Lungs: Chest Wall Normal, Clear to auscultation bilat Cardiovascular: Regular Rate/Rhythm Pulses: NL carotid, radial, femoral, DP, PT Abdomen: Non-tender, Non-distended, Normoactive bowel tones, Soft Extremities: No cyanosis/clubbing/edema bilat Neurological: Grossly Neurologically Intact, Normal Speech IVs and Medications Medications Reviewed: Medications were reviewed in detail Lab and Diagnostics Result Diagram: 07/18/1650907/18/1610 X-Rays, CTs and MRIs Date of Service: 07/17/161920 PROCEDURE: CT ANGIO CHEST PULMONARY EMBOLISM ([id number]) IMPRESSION: Bilateral definite pulmonary emboli in the lower lobes right more than left. Lungs are clear. No effusions are seen. Dictated by: Easton Gutiérrez M.D. on 07/17/2016 at 19:56 Approved by: Easton Gutiérrez M.D. on 07/17/2016 at 19:59 Date of Service: 07/17/16 2247 PROCEDURE: US VENOUS LEG DUPLEX BILATERAL IMPRESSION: No deep venous thrombosis identified within either the left or right lower extremities. Dictated by: Remi Choffel RRA Interpreted: Louise Billings MD on 07/18/2016 at 9:41 Transcribed by: AJ on 07/18/2016 at 9:42 Approved by: Louise Billings M.D. on 07/18/2016 at 14:55 Cardiac Echo Impressions Date of Service: 07/18/16 6458 Echocardiogram Report Interpretation Summary 1. Normal left ventricular size, wall thickness and systolic function with an estimated EF of 60-65% 2. Normal right ventricular size and systolic function. The estimated RVSP is 30 mm Hg 3. No valvular pathology appreciated There is no old study for comparison Reading Physician:10:41 AM Assessment & Plan 30yoF with past medical history of nephrolithiasis s/p stent placement and 3 weeks post presenting to the ED with 12+ hours of chest pain with findings of bilateral pulmonary embolism. # Bilateral pulmonary embolism, acute, POA -chest pain on presentation secondary to pulmonary embolism -3 weeks post , delivery via -no personal or family history of DVT / PE -current tobacco use, ready to quit, restarted use following delivery -NOT at this time -ECHO 07/18 unremarkable -Doppler lower extremity 33 without DVT -c/w pain control as needed -c/w heparin drip and bridge to Coumadin (to be dosed by pharmacy) -f/u daily INR (goal 2-3) # Tobacco dependency, chronic, POA -discussed the importance of tobacco cessation with patient on admission -nicotine patch as needed # Microcytic anemia, chronic, POA -improved from previous documented levels -patient not taking iron supplementation as advised following delivery d/t stomach upset -will continue to monitor # s/p cesarian section, chronic, POA -patient is 3 weeks post -no complications following delivery -minimal blood loss as per patient # nephrolithiasis, chronic, POA -patient with history of stent placement at [facility] while -h/o nephrolithiasis with all pregnancies -s/p stent placement with scheduled removal by Dr. Bartlett in 1 week Dispo: 3-4 days pending therapeutic INR GI Prophylaxis: Not indicated VTE Prophylaxis: Other (heparin gtt) Resuscitation Status: CPR: Attempt Resuscitation Oleg Mittal Jul 19, 2016 16:01
[2016-07-19] MEDS: LORazepam 1 mg Tablet PO PRN (17:14)
[2016-07-20] VITALS (9 sets, daily range): BP systolic 118–148; BP diastolic 67–90; PULSE 50–78; RESP 18–20; O2SAT 96–99
[2016-07-20] MEDS: LORazepam 1 mg Tablet PO PRN (06:32)
[2016-07-20 06:35] LABS: Mean Corpuscular Hemoglobin 23.4 pg (27.0-35.0); Mean Corpuscular Volume 76.6 fL (81-100)
[2016-07-20 06:44] LABS: INR 1.06 ratio
--- NOTE | 2016-07-20 06:59 | PCM.PHAPRO ---
Progress Warfarin Management: -Indication: bilateral PE -Inr Goal: 2-3 -Concurrent Anticoagulation: Heparin Infusion -Home Dose: new start -Coagulation Trends: 3-Jul 4-Jul 20-Jul 0.95 0.95 1.06 0.11 5mg 5MG 7.5MG -Plan: will give warfarin 7.5mg this evening and monitor [facility] Jul 20, 2016 06:59
--- NOTE | 2016-07-20 13:47 | NUR ---
Social Work: Continued d/c planning Data: Pt is on day 3 of hospitalization. EMR reviewed, pt discussed in rounds. MD states they are waiting on INR to be therapeutic and that pt will remain for at least 2 more days. MACHINE TOOL DRESSER will continue to follow. Assessment: Pt who is independent at baseline. Plan Pt will d/c home via POV when medically stable. No d/c planning needs identified at this time. MACHINE TOOL DRESSER will continue to follow. ALEX Bryant
--- NOTE | 2016-07-20 14:24 | PCM.PNMED ---
Subjective Date of Service Jul 20, 2016 Subjective Reports ongoing pleuritic chest pain. denies any lightheadedness, n/v. also reports noticing some hematuria since last night Exam Vital Signs Vital Sign - Last Date Time Temp Pulse Resp B/P Pulse Ox O2 Delivery O2 Flow Rate FiO2 07/20/16 10:34 36.6 66 18 118/76 97 Room Air 07/19/16 13:42 2.50 Intake and Output 07/19/16 07/19/16 07/20/16 Cumulative From/Thru 15:00 23:00 07:00 07/17/16 17:32 - 07/20/16 06:33 Intake Total 865 ml 200 ml 2583 ml Output Total 700 ml 950 ml 1650 ml Balance 165 ml -750 ml 933 ml Intake Oral 200 ml 1487 ml IV Total 865 ml 1096 ml Output Urine Total 700 ml 950 ml 1650 ml # Voids 4 # Bowel Movements 0 0 Exam General: Alert, Cooperative, No Acute Distress Head: Normal Eyes: Scleral Anicteric Nose: Mucous Membr Moist/[place] Mouth: Mucous Membr Moist/[place] Neck: Supple Chest & Lungs: Chest Wall Normal, Clear to auscultation bilat Cardiovascular: Regular Rate/Rhythm Pulses: NL carotid, radial, femoral, DP, PT Abdomen: Non-tender, Non-distended, Normoactive bowel tones, Soft Extremities: No cyanosis/clubbing/edema bilat Neurological: Grossly Neurologically Intact, Normal Speech IVs and Medications Medications Reviewed: Medications were reviewed in detail Lab and Diagnostics Result Diagram: 07/20/16 0605 07/18/16 0510 X-Rays, CTs and MRIs Date of Service: 07/17/161920 PROCEDURE: CT ANGIO CHEST PULMONARY EMBOLISM ([id number]) IMPRESSION: Bilateral definite pulmonary emboli in the lower lobes right more than left. Lungs are clear. No effusions are seen. Dictated by: Easton Gutiérrez M.D. on 07/17/2016 at 19:56 Approved by: Easton Gutiérrez M.D. on 07/17/2016 at 19:59 Date of Service: 07/17/167 PROCEDURE: US VENOUS LEG DUPLEX BILATERAL IMPRESSION: No deep venous thrombosis identified within either the left or right lower extremities. Dictated by: Remi Bailey RRA Interpreted: Louise Billings MD on 07/18/2016 at 9:41 Transcribed by: AJ on 07/18/2016 at 9:42 Approved by: Louise Billings M.D. on 07/18/2016 at 14:55 Cardiac Echo Impressions Date of Service: 07/18/16 2248 Echocardiogram Report Interpretation Summary 1. Normal left ventricular size, wall thickness and systolic function with an estimated EF of 60-65% 2. Normal right ventricular size and systolic function. The estimated RVSP is 30 mm Hg 3. No valvular pathology appreciated There is no old study for comparison Reading Physician:10:41 AM Assessment & Plan 30yoF with past medical history of nephrolithiasis s/p stent placement and 3 weeks post presenting to the ED with 12+ hours of chest pain with findings of bilateral pulmonary embolism. # Bilateral pulmonary embolism, acute, POA -chest pain on presentation secondary to pulmonary embolism -3 weeks post , delivery via -no personal or family history of DVT / PE -current tobacco use, ready to quit, restarted use following delivery -NOT at this time -ECHO 3 unremarkable -Doppler lower extremity 3/3 without DVT -c/w pain control as needed -c/w heparin drip and bridge to Coumadin (to be dosed by pharmacy) -f/u daily INR (goal 2-3) # New onset hematuria. not present on admission. - discussed with urology - check UA - check CT KUB - further possible urology consult pending above workup # nephrolithiasis, chronic, POA -patient with history of stent placement at [facility] while -h/o nephrolithiasis with all pregnancies -s/p stent placement with scheduled removal by Dr. Arisco in 1 week but may involve urology sooner as noted above # Tobacco dependency, chronic, POA -discussed the importance of tobacco cessation with patient on admission -nicotine patch as needed # Microcytic anemia, chronic, POA -improved from previous documented levels -patient not taking iron supplementation as advised following delivery d/t stomach upset -will continue to monitor # s/p cesarian section, chronic, POA -patient is 3 weeks post -no complications following delivery -minimal blood loss as per patient Dispo: 3-4 days pending therapeutic INR GI Prophylaxis: Not indicated VTE Prophylaxis: Other (heparin gtt) Resuscitation Status: CPR: Attempt Resuscitation Time spent 35 min Oleg Mittal Jul 20, 2016 14:24
[2016-07-20] MEDS: Heparin 25K Unit/500mL 0.45 NS 25,000 UNIT in IV Premix 1 EACH IV SCH (14:30)
--- NOTE | 2016-07-20 15:17 | DRSVH ---
PROCEDURE: CT KUB ([id number]) INDICATIONS: 30-year-old female with known pulmonary embolism, with hematuria. TECHNIQUE: Noncontrast 5 mm thick sections acquired from the diaphragms to the symphysis. 5 mm thick coronal an d sagittal reformats were then performed. For radiation dose reduction, the following was used: aut omated exposure control, adjustment of mA and/or kV according to patient size. COMPARISON: [facility], CT, CT ANGIO CHEST PE, 07/17/2016, 19:31. [facility], CT, ABD/PELVIS W/CON (PNL), 05/22/2014, 13:49. [facility], CT, KUB - CT (PNL), 08/15/19 14, 15:05. [facility], CT, KUB - CT (ABD/PEL W/O CONT), 01/10/2013, 21:37. FINDINGS: Image quality: Excellent. Lung bases: Small right and trace left mobile dependent pleural effusions are present, with patchy b ibasilar compressive atelectasis. On axial image 11, there is persistent anteromedial right lung bas e opacity. Heart size is normal. Urinary system: Both kidneys are normal in size. 2 nonobstructing right renal stones are present, m easuring up to 3 mm. 2 nonobstructing left renal stones are also present, measuring up to 3 mm. No hydronephrosis or perinephric fat stranding. Both ureters appear non-dilated throughout their expect ed courses. Double-J right ureteral stent is present, with superior end coiled within the proximal r ight ureter. Bladder wall thickness is normal; no calcified bladder stones. Other solid organs: Liver and spleen are normal in size. Gallbladder wall thickness is normal . Pa ncreas is normal in contours. No adrenal nodules. Peritoneum and bowel: Unenhanced bowel loops demonstrate normal wall thickness and caliber. No free fluid or air. Nodes and vessels: No retroperitoneal or mesenteric adenopathy by size criteria. Aorta and inferior vena cava are normal in caliber. Abdominal wall: No ventral hernias. Pelvis: No free pelvic fluid. No inguinal hernias or adenopathy. Uterus and ovaries are normal in size. Bones: No suspicious bony lesions. No vertebral body compression fractures. IMPRESSION: 1. Double-J right ureteral stent has migrated distally, with superior end coiled within the proximal right ureter 2 cm below the ureteropelvic junction. 2. Several bilateral nonobstructing renal stones measure up to 3 mm. 3. Anteromedial right lung base opacity may reflect evolving pulmonary infarct in the setting of kno wn pulmonary embolism. Dictated by: Mauricio Plaza M.D. on 07/20/2016 at 15:06 Approved by: Mauricio Plaza M.D. on 07/20/2016 at 15:15
--- NOTE | 2016-07-20 15:49 | NUR ---
Pain patient has c/o 7/10 pleuritic inspirational chest pain throughout shift. Pt has been receiving 2mg morphine Q2h for pain and increased WOB. Patient stated upon reassessments that that medications decreased pain to 4/10 and that medication is adequatley cover her pain medications are administered regularly. Pt has been on RA all shift with Sp02 of 95% or greater. Encouraged patient to ambulate but she has not wanted to ambulate
[2016-07-20] MEDS ORDERED: Warfarin 5 MG, Warfarin 2.5 MG PO SCH ×2 (17:00)
[2016-07-20 17:41] LABS: COLOR,URINE YELLOW (YELLOW)
[2016-07-20 17:42] LABS: APPEARANCE,URINE HAZY (CLEAR,HAZY); OCCULT BLOOD,URINE LARGE (NEGATIVE); UROBILINOGEN,URINE NORMAL (NORMAL)
[2016-07-21] VITALS (7 sets, daily range): BP systolic 96–147; BP diastolic 56–91; PULSE 51–82; RESP 18; O2SAT 95–99
--- NOTE | 2016-07-21 05:03 | NUR ---
Noc/Pain/Bradycardia Pt states that she's still having pleuritic chest pain upon deep inhalation. Denies SOB but is shallow breathing due to pain. Denies n/v or abd discomfort. Pt states that she's still having dark colored urine. PTT heparin currently on 20units/kg/hr and is on therapeutic range. Telemetry running Sinus bradycardia of 50's asymptomatic. Hourly rounding done and pt has slept most of the night. Addendum: 07/21/16 at 0525 by JANETT COLEMAN RN 0500 pt had an active chest pain 02/24 and is really anxious. Ativan and Morphine 2mg administered PRN. Pt has calmed down and states that pain is going away. Will continue to monitor.
[2016-07-21] MEDS: LORazepam 1 mg Tablet PO PRN ×2 (05:16→18:22)
[2016-07-21 05:53] LABS: INR 1.37 ratio
--- NOTE | 2016-07-21 10:55 | PCM.PHAPRO ---
Progress Date of Service: Jul 21, 2016 INR = 1.37 Pt continues to receive warfarin therapy for PE. Goal INR = 2.3. Some hematuria per discussion in rounds & hospitalist note. Will give another 7.5mg warfarin dose tonight. INRs ordered. Pharmacy will continue to follow this patient's warfarin therapy. Coreen Tripathi PharmD Jul 21, 2016 10:55
[2016-07-21] MEDS: Heparin 25K Unit/500mL 0.45 NS 25,000 UNIT in IV Premix 1 EACH IV SCH (12:11)
--- NOTE | 2016-07-21 14:05 | PCM.PNMED ---
Subjective Date of Service Jul 21, 2016 Subjective Reports ongoing pleuritic chest pain. denies any lightheadedness, n/v. continues to have hematuria Exam Vital Signs Vital Sign - Last Date Time Temp Pulse Resp B/P Pulse Ox O2 Delivery O2 Flow Rate FiO2 07/21/16 09:58 51 07/21/16 09:46 36.7 18 134/79 98 Room Air 07/19/16 13:42 2.50 Intake and Output 07/20/16 07/20/16 07/21/16 Cumulative From/Thru 15:00 23:00 07:00 07/17/16 17:32 - 07/21/16 06:27 Intake Total 773 ml 541 ml 3897 ml Output Total 125 ml 150 ml 1925 ml Balance 648 ml 391 ml 1972 ml Intake Oral 236 ml 236 ml 1959 ml IV Total 537 ml 305 ml 1938 ml Output Urine Total 125 ml 150 ml 1925 ml # Voids 4 # Bowel Movements 0 0 0 Exam General: Alert, Cooperative, No Acute Distress Head: Normal Eyes: Scleral Anicteric Nose: Mucous Membr Moist/[place] Mouth: Mucous Membr Moist/[place] Neck: Supple Chest & Lungs: Chest Wall Normal, Clear to auscultation bilat Cardiovascular: Regular Rate/Rhythm Pulses: NL carotid, radial, femoral, DP, PT Abdomen: Non-tender, Non-distended, Normoactive bowel tones, Soft Extremities: No cyanosis/clubbing/edema bilat Neurological: Grossly Neurologically Intact, Normal Speech IVs and Medications Medications Reviewed: Medications were reviewed in detail Lab and Diagnostics Result Diagram: 07/20/16 0605 07/18/16 0510 X-Rays, CTs and MRIs Date of Service: 07/17/161920 PROCEDURE: CT ANGIO CHEST PULMONARY EMBOLISM ([id number]) IMPRESSION: Bilateral definite pulmonary emboli in the lower lobes right more than left. Lungs are clear. No effusions are seen. Dictated by: Easton Gutiérrez M.D. on 07/17/2016 at 19:56 Approved by: Easton Gutiérrez M.D. on 07/17/2016 at 19:59 Date of Service: 07/17/162246 PROCEDURE: US VENOUS LEG DUPLEX BILATERAL IMPRESSION: No deep venous thrombosis identified within either the left or right lower extremities. Dictated by: Remi Bailey RRA Interpreted: Louise Billings MD on 07/18/2016 at 9:41 Transcribed by: AJ on 07/18/2016 at 9:42 Approved by: Louise Billings M.D. on 07/18/2016 at 14:55 Cardiac Echo Impressions Date of Service: 07/18/162246 Echocardiogram Report Interpretation Summary 1. Normal left ventricular size, wall thickness and systolic function with an estimated EF of 60-65% 2. Normal right ventricular size and systolic function. The estimated RVSP is 30 mm Hg 3. No valvular pathology appreciated There is no old study for comparison Reading Physician:10:41 AM Assessment & Plan 30yoF with past medical history of nephrolithiasis s/p stent placement and 3 weeks post presenting to the ED with 12+ hours of chest pain with findings of bilateral pulmonary embolism. # Bilateral pulmonary embolism, acute, POA -chest pain on presentation secondary to pulmonary embolism -3 weeks post , delivery via -no personal or family history of DVT / PE -current tobacco use, ready to quit, restarted use following delivery -NOT at this time -ECHO 07/18 unremarkable -Doppler lower extremity 07/18 without DVT -c/w pain control as needed -c/w heparin drip and bridge to Coumadin (to be dosed by pharmacy) -f/u daily INR (goal 2-3) # New onset hematuria since 07/19/16. not present on admission. - discussed with urology (Dr. Mcgee) on 07/20 and again 07/21 who reviewed patient's KUB and noted that case was discussed with Dr. Bartlett and does not feel need for consult at this time and recommend patient followup with Dr. Bartlett after discharge to remove the ureteral stent as outpatient - f/u urine culture result # nephrolithiasis, chronic, POA -patient with history of stent placement at [facility] while -h/o nephrolithiasis with all pregnancies -s/p stent placement with plan removal by Dr. Bartlett as noted above # Tobacco dependency, chronic, POA -discussed the importance of tobacco cessation with patient on admission -nicotine patch as needed # Microcytic anemia, chronic, POA -improved from previous documented levels -patient not taking iron supplementation as advised following delivery d/t stomach upset -will continue to monitor # s/p cesarian section, chronic, POA -patient is 3 weeks post -no complications following delivery -minimal blood loss as per patient Dispo: 2-3 days pending therapeutic INR GI Prophylaxis: Not indicated VTE Prophylaxis: Other (heparin gtt) VTE Mechanical Devices: Intermittant Pneumatic CD Resuscitation Status: CPR: Attempt Resuscitation Oleg Mittal Jul 21, 2016 14:05
--- NOTE | 2016-07-21 14:33 | NUR ---
Social Work-readiness for discharge: Data:EMR Reviewed. Pt is on day 4 of hospitalization for bilateral PE per H&P. Pt is not medically stable, anticipate a few more days. SW followed up with pt at bedside to confirm discharge plan, SW role explained. Pt confirms she lives in [place] with her three children. Pt has a one month old baby. Pt states she is not , but formula feeding. Pt reports that is hard being away from her children, but she has good support from her parents. SW discussed DPOA/ advanced directive, pt is not interested in any information at this time. Per RN notes, pt has been up independent in her room. Pt's mother to provide transport home. No anticipated discharge needs. SW will continue to follow if needs arise. Assessment:Pt who is independent at baseline. Plan:Pt to discharge home when medically stable via POV. No anticipated discharge needs. SW will continue to follow if needs arise. ALEX Helm
[2016-07-21] MEDS ORDERED: Warfarin 5 MG, Warfarin 2.5 MG PO ONE ×2 (17:00)
--- NOTE | 2016-07-21 18:05 | NUR ---
Heparin 2nd APTT value in range (72.5 and 76.2). Next APTT scheduled for 0500 tomorrow 07/22/16. No signs of external bleeding, continuing to monitor.
[2016-07-22] VITALS (7 sets, daily range): BP systolic 110–147; BP diastolic 65–84; PULSE 53–76; RESP 18; O2SAT 97–99
--- NOTE | 2016-07-22 05:00 | NUR ---
Pain Pt still having continuous pleuritic pain on her chest, but now radiating to her back. Pain is controlled with 2 mg Morphine Sulfate PRN. Pt denies sob, n/v or abd discomfort. Pt reports of still having hematuria. Hourly rounding done, Pain meds administered [id number] and PRN. Hep drip running on 18units/kg/hr. Will continue to monitor.
[2016-07-22 06:35] LABS: INR 1.77 ratio
[2016-07-22] MEDS: Heparin 25K Unit/500mL 0.45 NS 25,000 UNIT in IV Premix 1 EACH IV SCH (11:32)
--- NOTE | 2016-07-22 12:08 | PCM.PHAPRO ---
Progress Date of Service: Jul 22, 2016 INR - 1.77, hgb/hct = 10.4/33.8 Pt continues on warfarin for bilateral PE. Goal INR = 2-3, also on heparin gtt. Will give another dose of warfarin 7.5 mg PO tonight. INRs ordered. Pharmacy will follow this pt's warfarin therapy. Date -Jul 19-Jul 20-Jul 21-Jul 22-Jul INR 0.95 0.95 1.06 1.37 1.77 INR change 0.11 0.31 0.4 Warf Dose 5mg 5MG 7.5MG 7.5 MG 7.5 MG Coreen Tripathi S PharmD Jul 22, 2016 12:08
[2016-07-22] MEDS ORDERED: Magnesium Hydroxide 10 mL Oral Concentration PO PRN (14:15)
--- NOTE | 2016-07-22 14:22 | PCM.PNMED ---
Subjective Date of Service Jul 22, 2016 Subjective Reports ongoing pleuritic chest pain. denies any lightheadedness, n/v. continues to have hematuria Exam Vital Signs Vital Sign - Last Date Time Temp Pulse Resp B/P Pulse Ox O2 Delivery O2 Flow Rate FiO2 07/22/16 13:50 36.7 76 18 128/84 98 Room Air 07/19/16 13:42 2.50 Intake and Output 07/21/16 07/21/16 07/22/16 Cumulative From/Thru 15:00 23:00 07:00 07/17/16 17:32 - 07/22/16 06:18 Intake Total 879 ml 200 ml 4976 ml Output Total 600 ml 400 ml 2925 ml Balance 279 ml -200 ml 2051 ml Intake Oral 600 ml 200 ml 2759 ml IV Total 279 ml 2217 ml Output Urine Total 600 ml 400 ml 2925 ml # Voids 4 # Bowel Movements 1 1 Exam General: Alert, Cooperative, No Acute Distress Head: Normal Eyes: Scleral Anicteric Nose: Mucous Membr Moist/[place] Mouth: Mucous Membr Moist/[place] Neck: Supple Chest & Lungs: Chest Wall Normal, Clear to auscultation bilat Cardiovascular: Regular Rate/Rhythm Pulses: NL carotid, radial, femoral, DP, PT Abdomen: Non-tender, Non-distended, Normoactive bowel tones, Soft Extremities: No cyanosis/clubbing/edema bilat Neurological: Grossly Neurologically Intact, Normal Speech IVs and Medications Medications Reviewed: Medications were reviewed in detail Lab and Diagnostics Result Diagram: 07/22/16 0530 07/18/16 0510 X-Rays, CTs and MRIs Date of Service: 07/17/161920 PROCEDURE: CT ANGIO CHEST PULMONARY EMBOLISM ([id number]) IMPRESSION: Bilateral definite pulmonary emboli in the lower lobes right more than left. Lungs are clear. No effusions are seen. Dictated by: Easton Gutiérrez M.D. on 07/17/2016 at 19:56 Approved by: Easton Gutiérrez M.D. on 07/17/2016 at 19:59 Date of Service: 07/17/16 2247 PROCEDURE: US VENOUS LEG DUPLEX BILATERAL IMPRESSION: No deep venous thrombosis identified within either the left or right lower extremities. Dictated by: Remi Bailey RRA Interpreted: Louise Billings MD on 07/18/2016 at 9:41 Transcribed by: AJ on 07/18/2016 at 9:42 Approved by: Louise Billings M.D. on 07/18/2016 at 14:55 Cardiac Echo Impressions Date of Service: 07/18/16 8997 Echocardiogram Report Interpretation Summary 1. Normal left ventricular size, wall thickness and systolic function with an estimated EF of 60-65% 2. Normal right ventricular size and systolic function. The estimated RVSP is 30 mm Hg 3. No valvular pathology appreciated There is no old study for comparison Reading Physician:10:41 AM Assessment & Plan 30yoF with past medical history of nephrolithiasis s/p stent placement and 3 weeks post presenting to the ED with 12+ hours of chest pain with findings of bilateral pulmonary embolism. # Bilateral pulmonary embolism, acute, POA -chest pain on presentation secondary to pulmonary embolism -3 weeks post , delivery via -no personal or family history of DVT / PE -current tobacco use, ready to quit, restarted use following delivery -NOT at this time -ECHO 07/18 unremarkable -Doppler lower extremity 07/18 without DVT -c/w pain control as needed -c/w heparin drip and bridge to Coumadin (to be dosed by pharmacy) -f/u daily INR (goal 2-3) # New onset hematuria since 07/19/16. not present on admission. - discussed with urology (Dr. Mcgee) on 07/20 and again 07/21 who reviewed patient's KUB and noted that case was discussed with Dr. Bartlett and does not feel need for consult at this time and recommend patient followup with Dr. Bartlett after discharge to remove the ureteral stent as outpatient - f/u urine culture result # nephrolithiasis, chronic, POA -patient with history of stent placement at [facility] while -h/o nephrolithiasis with all pregnancies -s/p stent placement with plan removal by Dr. Bartlett as noted above # Tobacco dependency, chronic, POA -discussed the importance of tobacco cessation with patient on admission -nicotine patch as needed # Microcytic anemia, chronic, POA. stable -improved from previous documented levels -patient not taking iron supplementation as advised following delivery d/t stomach upset -will continue to monitor # s/p cesarian section, chronic, POA -patient is 3 weeks post -no complications following delivery -minimal blood loss as per patient Dispo: 2-3 days pending therapeutic INR GI Prophylaxis: Not indicated VTE Prophylaxis: Other (heparin gtt) VTE Mechanical Devices: Intermittant Pneumatic CD Resuscitation Status: CPR: Attempt Resuscitation Oleg Mtital Jul 22, 2016 14:22
--- NOTE | 2016-07-22 15:38 | NUR ---
Visitors Pt requests to have no visitors except for mother/family. Wants to get some rest. Note placed on door to check with nurse before entering. Will update next shift.
[2016-07-22] MEDS: oxyCODONE ER 10 mg ER12 Tablet PO SCH ×2 (16:41→20:52)
[2016-07-23] VITALS (8 sets, daily range): BP systolic 107–142; BP diastolic 65–83; PULSE 52–76; RESP 15–18; O2SAT 97–99
[2016-07-23] MEDS: LORazepam 1 mg Tablet PO PRN (00:52)
--- NOTE | 2016-07-23 05:52 | NUR ---
Pain Morphine use is considerably reduced however pt indicates she feels some withdrawal effects such as: "shaky tremor and feeling of unease". Administered IV morphine for relief of 6/10 pain and tremors/unease @01:35. Pain is not completely gone with BID 10mg Oxycodone however she described 5/10 pain @05:30 and refused additional Morphine. "I want to wait until the next Oxycodone is due.
[2016-07-23 06:34] LABS: INR 2.04 ratio
[2016-07-23] MEDS: oxyCODONE ER 10 mg ER12 Tablet PO SCH ×2 (09:06→21:29)
--- NOTE | 2016-07-23 14:26 | PCM.PNMED ---
Subjective Date of Service Jul 23, 2016 Subjective pleuritic chest pain slowly improving. denies any lightheadedness, n/v. no further hematuria today Exam Vital Signs Vital Sign - Last Date Time Temp Pulse Resp B/P Pulse Ox O2 Delivery O2 Flow Rate FiO2 07/23/16 13:45 36.7 76 16 107/65 98 Room Air 07/19/16 13:42 2.50 Intake and Output 07/22/16 07/22/16 07/23/16 Cumulative From/Thru 15:00 23:00 07:00 07/17/16 17:32 - 07/23/16 06:28 Intake Total 700 ml 320 ml 5996 ml Output Total 750 ml 3675 ml Balance 700 ml -430 ml 2321 ml Intake Oral 700 ml 320 ml 3779 ml IV Total 2217 ml Output Urine Total 750 ml 3675 ml # Voids 3 7 # Bowel Movements 0 1 Exam General: Alert, Cooperative, No Acute Distress Head: Normal Eyes: Scleral Anicteric Nose: Mucous Membr Moist/[place] Mouth: Mucous Membr Moist/[place] Neck: Supple Chest & Lungs: Chest Wall Normal, Clear to auscultation bilat Cardiovascular: Regular Rate/Rhythm Pulses: NL carotid, radial, femoral, DP, PT Abdomen: Non-tender, Non-distended, Normoactive bowel tones, Soft Extremities: No cyanosis/clubbing/edema bilat Neurological: Grossly Neurologically Intact, Normal Speech IVs and Medications Medications Reviewed: Medications were reviewed in detail Lab and Diagnostics Result Diagram: 07/22/16 0530 07/18/16 0510 X-Rays, CTs and MRIs Date of Service: 07/17/161920 PROCEDURE: CT ANGIO CHEST PULMONARY EMBOLISM ([id number]) IMPRESSION: Bilateral definite pulmonary emboli in the lower lobes right more than left. Lungs are clear. No effusions are seen. Dictated by: Easton Gutiérrez M.D. on 07/17/2016 at 19:56 Approved by: Easton Gutiérrez M.D. on 07/17/2016 at 19:59 Date of Service: 07/17/16 2247 PROCEDURE: US VENOUS LEG DUPLEX BILATERAL IMPRESSION: No deep venous thrombosis identified within either the left or right lower extremities. Dictated by: Remi Bailey RRA Interpreted: Louise Billings MD on 07/18/2016 at 9:41 Transcribed by: AJ on 07/18/2016 at 9:42 Approved by: Louise Billings M.D. on 07/18/2016 at 14:55 Cardiac Echo Impressions Date of Service: 07/18/169 Echocardiogram Report Interpretation Summary 1. Normal left ventricular size, wall thickness and systolic function with an estimated EF of 60-65% 2. Normal right ventricular size and systolic function. The estimated RVSP is 30 mm Hg 3. No valvular pathology appreciated There is no old study for comparison Reading Physician:10:41 AM Assessment & Plan 30yoF with past medical history of nephrolithiasis s/p stent placement and 3 weeks post presenting to the ED with 12+ hours of chest pain with findings of bilateral pulmonary embolism. # Bilateral pulmonary embolism, acute, POA -chest pain on presentation secondary to pulmonary embolism -3 weeks post , delivery via -no personal or family history of DVT / PE -current tobacco use, ready to quit, restarted use following delivery -NOT at this time -ECHO 07/18/16 unremarkable -Doppler lower extremity 07/18 without DVT -c/w pain control as needed -c/w heparin drip and bridge to Coumadin (to be dosed by pharmacy) until INR therapeutic 2 days in a row # New onset hematuria since 07/19/16. not present on admission. - discussed with urology (Dr. Mcgee) on 07/20/16 and again 07/21/16 who reviewed patient's KUB and noted that case was discussed with Dr. Bartlett and does not feel need for consult at this time and recommend patient followup with Dr. Bartlett within one week after discharge to remove the ureteral stent as outpatient # nephrolithiasis, chronic, POA -patient with history of stent placement at [facility] while -h/o nephrolithiasis with all pregnancies -s/p stent placement with plan removal by Dr. Bartlett as noted above # Tobacco dependency, chronic, POA -discussed the importance of tobacco cessation with patient on admission -nicotine patch as needed # Microcytic anemia, chronic, POA. stable -improved from previous documented levels -patient not taking iron supplementation as advised following delivery d/t stomach upset -will continue to monitor # s/p cesarian section, chronic, POA -patient is 3 weeks post -no complications following delivery -minimal blood loss as per patient Dispo: home tomorrow if INR continue remain within therapeutic range within 24h. GI Prophylaxis: Not indicated VTE Prophylaxis: Other (heparin gtt) VTE Mechanical Devices: Intermittant Pneumatic CD Resuscitation Status: CPR: Attempt Resuscitation Oleg Mittal Jul 23, 2016 14:26
[2016-07-23] MEDS: Heparin 25K Unit/500mL 0.45 NS 25,000 UNIT in IV Premix 1 EACH IV SCH (14:43)
--- NOTE | 2016-07-23 22:42 | NUR ---
O2 sat / Bleeding tolerating RA with o2 sats @97% reports some bleeding of gums while brushing teeth, and nose bleed earlier. No current bleeding with transition to RA. 10.4/33.8 Hgb/Hct climbing to July 3d levels.
[2016-07-24 01:38] VITALS: BP 98/59; PULSE 74; RESP 16; O2SAT 97
[2016-07-24 05:16] VITALS: BP 125/75; PULSE 64; RESP 16; O2SAT 93
[2016-07-24 05:56] LABS: INR 2.07 ratio
[2016-07-24 06:57] VITALS: PULSE 44
--- NOTE | 2016-07-24 07:09 | PCM.PNMED ---
Subjective Date of Service Jul 24, 2016 Subjective mild bleeding gums, recent epistaxis - no events overnight, H/H improving - 11 this AM, day 2 of therapeutic INR - no cp/sob on RA. did need IV morphine - will need ot wean to PO only prior to dc Exam Vital Signs Vital Sign - Last Date Time Temp Pulse Resp B/P Pulse Ox O2 Delivery O2 Flow Rate FiO2 07/24/16 06:57 44 07/24/16 05:16 36.8 16 125/75 93 Room Air 07/19/16 13:42 2.50 Intake and Output 07/23/16 07/23/16 07/24/16 Cumulative From/Thru 15:00 23:00 07:00 07/17/16 17:32 - 07/24/16 06:36 Intake Total 1757 ml 411 ml 8164 ml Output Total 400 ml 4075 ml Balance 1757 ml 11 ml 4089 ml Intake Oral 800 ml 180 ml 4759 ml IV Total 957 ml 231 ml 3405 ml Output Urine Total 400 ml 4075 ml # Voids 3 10 # Bowel Movements 0 1 Exam General: Alert, Cooperative, No Acute Distress Head: Normal Eyes: Scleral Anicteric Nose: Mucous Membr Moist/[place] Mouth: Mucous Membr Moist/[place] Neck: Supple Chest & Lungs: Chest Wall Normal, Clear to auscultation bilat Cardiovascular: Regular Rate/Rhythm Pulses: NL carotid, radial, femoral, DP, PT Abdomen: Non-tender, Non-distended, Normoactive bowel tones, Soft Extremities: No cyanosis/clubbing/edema bilat Neurological: Grossly Neurologically Intact, Normal Speech IVs and Medications Medications Reviewed: Medications were reviewed in detail Lab and Diagnostics Result Diagram: 07/24/16 0505 07/18/16 0510 X-Rays, CTs and MRIs Date of Service: 07/17/161920 PROCEDURE: CT ANGIO CHEST PULMONARY EMBOLISM ([id number]) IMPRESSION: Bilateral definite pulmonary emboli in the lower lobes right more than left. Lungs are clear. No effusions are seen. Dictated by: Easton Gutiérrez M.D. on 07/17/2016 at 19:56 Approved by: Easton Gutiérrez M.D. on 07/17/2016 at 19:59 Date of Service: 07/17/162246 PROCEDURE: US VENOUS LEG DUPLEX BILATERAL IMPRESSION: No deep venous thrombosis identified within either the left or right lower extremities. Dictated by: Remi Bailey RRA Interpreted: Louise Billings MD on 07/18/2016 at 9:41 Transcribed by: AJ on 07/18/2016 at 9:42 Approved by: Louise Billings M.D. on 07/18/2016 at 14:55 Cardiac Echo Impressions Date of Service: 07/18/162246 Echocardiogram Report Interpretation Summary 1. Normal left ventricular size, wall thickness and systolic function with an estimated EF of 60-65% 2. Normal right ventricular size and systolic function. The estimated RVSP is 30 mm Hg 3. No valvular pathology appreciated There is no old study for comparison Reading Physician:10:41 AM Assessment & Plan 30yoF with past medical history of nephrolithiasis s/p stent placement and 3 weeks post presenting to the ED with 12+ hours of chest pain with findings of bilateral pulmonary embolism. # Bilateral pulmonary embolism, acute, POA -chest pain on presentation secondary to pulmonary embolism -3 weeks post , delivery via -no personal or family history of DVT / PE -current tobacco use, ready to quit, restarted use following delivery -NOT at this time -ECHO 07/18/16 unremarkable -Doppler lower extremity 07/18 without DVT -c/w pain control as needed -c/w heparin drip and bridge to Coumadin (to be dosed by pharmacy) until INR therapeutic 2 days in a row # New onset hematuria since 07/19/16. not present on admission. - discussed with urology (Dr. Mcgee) on 07/20/16 and again 07/21/16 who reviewed patient's KUB and noted that case was discussed with Dr. Bartlett and does not feel need for consult at this time and recommend patient followup with Dr. Bartlett within one week after discharge to remove the ureteral stent as outpatient # nephrolithiasis, chronic, POA -patient with history of stent placement at [facility] while -h/o nephrolithiasis with all pregnancies -s/p stent placement with plan removal by Dr. Bartlett as noted above # Tobacco dependency, chronic, POA -discussed the importance of tobacco cessation with patient on admission -nicotine patch as needed # Microcytic anemia, chronic, POA. stable -improved from previous documented levels -patient not taking iron supplementation as advised following delivery d/t stomach upset -will continue to monitor # S/p cesarian section, chronic, POA -patient is 3 weeks post -no complications following delivery -minimal blood loss as per patient Dispo: home tomorrow likely today GI Prophylaxis: Not indicated VTE Prophylaxis: Other (heparin gtt) VTE Mechanical Devices: Intermittant Pneumatic CD Resuscitation Status: CPR: Attempt Resuscitation Time spent 35 minutes spent with eval and Vincent Zhou DO Jul 24, 2016 07:09
[2016-07-24 08:00] VITALS: PULSE 44
[2016-07-24] MEDS: oxyCODONE ER 10 mg ER12 Tablet PO SCH (08:40)
--- NOTE | 2016-07-24 08:50 | PCM.PHAPRO ---
Progress Date of Service: Jul 24, 2016 Pt continues on warfarin for bilateral PE. Goal INR = 2-3, also on heparin gtt. Will give another dose of warfarin 7.5 mg PO tonight. INRs ordered. Pharmacy will follow this pt's warfarin therapy. 1.37 1.77 2.04 2.07 0.31 0.4 0.27 0.03 7.5 MG 7.5 MG 7.5 MG THANKS! Clotilde Yousif PharmD Jul 24, 2016 08:50
[2016-07-24 11:16] VITALS: BP 100/68; PULSE 75; RESP 16; O2SAT 96
--- NOTE | 2016-07-24 13:00 | PCM.DIMED ---
Discharge Instructions Date of Service Jul 24, 2016 Dates of Hospitalization Jul 17, 2016 at 20:57 Discharge Diagnosis Discharge Diagnosis Pulmonary emboli nephrolithiasis - kidney stone history while tobacco dependency s/p cesarian section Medication Instructions Please take your coumadin 7.5mg each day at instructed. Please keep your leafy green daily intake regular as this can effect your coumadin level. We want to keep your level between 2 and 3 to help promote breakdown of your lung clots Diet Other (keep consistent vitamin K intake - you do not have to avoid leafy green vegetables but keep intake regular) Activity Other (please continue exercising as tolerated - gradually increased AFTER follow up with your primary care physician) Patient Instructions Please take your coumadin 7.5mg each day at instructed. Please keep your leafy green daily intake regular as this can effect your coumadin level. We want to keep your level between 2 and 3 to help promote breakdown of your lung clots I would like you to check your INR (coumadin level) on tuesday 07/25 - if you have questions, please call your PCP office please continue exercising as tolerated - gradually increased AFTER follow up with your primary care physician. You are now on a blood thinner Follow-up plan PCP appointment on Thursday as scheduled Follow-up with PCP in: Other (as sched thursday) Provider: Alley Bartlett MD Follow-up in: 1 week (for ureteral stent removal - please call for an appointment) Vincent Caruso DO Jul 24, 2016 13:00
[2016-07-24] MEDS ORDERED: WARF7.5T4 PO (13:04)
[2016-07-24] MEDS ORDERED: OXYC10TA69 PO (13:04)
[2016-07-24] MEDS ORDERED: POLY17PO6 PO (13:04)
[2016-07-24] MEDS ORDERED: MAGN800O PO (13:04)
--- NOTE | 2016-07-24 13:11 | PCM.DC.MED ---
Discharge Summary Date of Service Jul 24, 2016 Dates of Hospitalization Date of Hospital Admission Jul 17, 2016 at 20:57 Date of Discharge: Jul 24, 2016 Providers: Admitting Physician: Francesca Ware DO Primary Care Physician: Yayo Antonio MD Attending Physician: Francesca Ware DO Diagnosis at Time of Discharge Diagnosis at Time of Discharge Bilateral Pulmonary emboli nephrolithiasis during - s/p stent placement tobacco dependency s/p cesarian section x 4 wks ago Procedures XRay, CTs & MRIs Date of Service: 07/17/161920 PROCEDURE: CT ANGIO CHEST PULMONARY EMBOLISM ([id number]) IMPRESSION: Bilateral definite pulmonary emboli in the lower lobes right more than left. Lungs are clear. No effusions are seen. Dictated by: Easton Gutiérrez M.D. on 07/17/2016 at 19:56 Approved by: Easton Gutiérrez M.D. on 07/17/2016 at 19:59 Date of Service: 07/17/162246 PROCEDURE: US VENOUS LEG DUPLEX BILATERAL IMPRESSION: No deep venous thrombosis identified within either the left or right lower extremities. Dictated by: Remi WILSON Interpreted: Louise Billings MD on 07/18/2016 at 9:41 Transcribed by: AJ on 07/18/2016 at 9:42 Approved by: Louise Billings M.D. on 07/18/2016 at 14:55 Cardiac Echo Impression Date of Service: 07/18/162246 Echocardiogram Report Interpretation Summary 1. Normal left ventricular size, wall thickness and systolic function with an estimated EF of 60-65% 2. Normal right ventricular size and systolic function. The estimated RVSP is 30 mm Hg 3. No valvular pathology appreciated There is no old study for comparison Reading Physician:10:41 AM Invasive Procedures Patient Name: DANIEL BLAIR MR#: [id number] Location: [facility] [place] Ordering Phys: Oleg Mittal MD Date of Service: 07/20/16 1424 PROCEDURE: CT KUB ([id number]) INDICATIONS: 30-year-old female with known pulmonary embolism, with hematuria. TECHNIQUE: Noncontrast 5 mm thick sections acquired from the diaphragms to the symphysis. 5 mm thick coronal and sagittal reformats were then performed. For radiation dose reduction, the following was used: automated exposure control, adjustment of mA and/or kV according to patient size. COMPARISON: [facility], CT, CT ANGIO CHEST PE, 07/17/2016, 19:31. [facility], CT, ABD/PELVIS W/CON (PNL), 05/22/2014, 13:49. [facility], CT, KUB - CT (PNL), 08/14/2013, 15:05. [facility] , CT, KUB - CT (ABD/PEL W/O CONT), 01/10/2013, 21:37. FINDINGS: Image quality: Excellent. Lung bases: Small right and trace left mobile dependent pleural effusions are present, with patchy bibasilar compressive atelectasis. On axial image 11, there is persistent anteromedial right lung base opacity. Heart size is normal. Urinary system: Both kidneys are normal in size. 2 nonobstructing right renal stones are present, measuring up to 3 mm. 2 nonobstructing left renal stones are also present, measuring up to 3 mm. No hydronephrosis or perinephric fat stranding. Both ureters appear non-dilated throughout their expected courses. Double-J right ureteral stent is present, with superior end coiled within the proximal right ureter. Bladder wall thickness is normal; no calcified bladder stones. Other solid organs: Liver and spleen are normal in size. Gallbladder wall thickness is normal . Pancreas is normal in contours. No adrenal nodules. Peritoneum and bowel: Unenhanced bowel loops demonstrate normal wall thickness and caliber. No free fluid or air. Nodes and vessels: No retroperitoneal or mesenteric adenopathy by size criteria. Aorta and inferior vena cava are normal in caliber. Abdominal wall: No ventral hernias. Pelvis: No free pelvic fluid. No inguinal hernias or adenopathy. Uterus and ovaries are normal in size. Bones: No suspicious bony lesions. No vertebral body compression fractures. IMPRESSION: 1. Double-J right ureteral stent has migrated distally, with superior end coiled within the proximal right ureter 2 cm below the ureteropelvic junction. 2. Several bilateral nonobstructing renal stones measure up to 3 mm. 3. Anteromedial right lung base opacity may reflect evolving pulmonary infarct in the setting of known pulmonary embolism. Dictated by: Mauricio Plaza M.D. on 07/20/2016 at 15:06 Brief History 30yoF with past medical history of nephrolithiasis s/p stent placement and 3 weeks post presenting to the ED with 12+ hours of chest pain. Patient states that she woke to feed her a little after midnight on 2016 and began to have 6-7/10 non-radiating substernal chest pain worse with inspiration. She was unable to place her on her chest due to increase of pain. She waited until her PCP office was open then requested an appointment. She was informed there were no appointments available and to go to urgent care if her symptoms worsened. By the time she received a call back her symptoms had progressed and she was on her way to [facility] ED. CTPA was completed with findings of "definite bilateral pulmonary emboli in the lower lobes right greater than left." At the time of interview patient with chest pain with deep inspiration and difficulties "catching her breath" because of inspiratory discomfort. She denies other symptoms at this time aside from urinary leakage which has been present since ureter stent placed during . Patient is 3 weeks post op () from a relatively uncomplicated . She was seen at [facility] on two separate occasions d/t nephrolithiasis with ureter stent placement Stent is scheduled for removal next week by [facility] urology. 1 week following delivery she was seen at [facility] ED for endometritis and was given a short course of antibiotics with full resolution of symptoms. She is currently not . Patient has no personal history or family history of blood clots. Recent delivery via . Hospital Course 30yoF with past medical history of nephrolithiasis s/p stent placement and 3 weeks post presenting to the ED with 12+ hours of chest pain with findings of bilateral pulmonary embolism. # Bilateral pulmonary embolism, acute, POA -chest pain on presentation secondary to pulmonary embolism--> improv weaned off IV pain med to be discharged today with 10 days of oxycdodone BID, with bowel regimen. Pt educated that oxycodone should NOT be taken while -3 weeks post , delivery via -no personal or family history of DVT / PE -current tobacco use, ready to quit, restarted use following delivery, educated about cessation -NOT at this time, but ok to use with - follow INR closely - order PT/INR tomorrw -ECHO 07/18/16 unremarkable -Doppler lower extremity 07/18 without DVT -c/w pain control as needed -s/p heparin drip and bridge to Coumadin with >2 days of a therapeutic INR at time of discharge -recommend exercise as tolerated until PCP f/u - ok for brisk cardiovascular w/ out if not having cp/sob # New onset hematuria since 07/19/16. not present on admission. - discussed with urology (Dr. Mcgee) on 07/20/16 and again 07/21/16 who reviewed patient's KUB and noted that case was discussed with Dr. Bartlett and does not feel need for consult at this time and recommend patient followup with Dr. Bartlett within one week after discharge to remove the ureteral stent as outpatient - pt instructed to f/u in 1 week by calling ofr an apppt # nephrolithiasis, chronic, POA -patient with history of stent placement at [facility] while -h/o nephrolithiasis with all pregnancies -s/p stent placement with plan removal by Dr. Bartlett as noted above # Tobacco dependency, chronic, POA -discussed the importance of tobacco cessation with patient on admission -nicotine patch as needed # Microcytic anemia, chronic, POA. stable -improved from previous documented levels -patient not taking iron supplementation as advised following delivery d/t stomach upset -will continue to monitor # S/p cesarian section, chronic, POA -patient is 3 weeks post -no complications following delivery -minimal blood loss as per patient Dispo: discharge home today Exam Vital Signs (Last) Date Time Temp Pulse Resp B/P Pulse Ox O2 Delivery O2 Flow Rate FiO2 07/24/16 11:16 36.7 75 16 100/68 96 Room Air 07/19/16 13:42 2.50 Exam General: Alert, Cooperative, No Acute Distress Head: Normal Eyes: Scleral Anicteric Nose: Mucous Membr Moist/[place] Mouth: Mucous Membr Moist/[place] Neck: Supple Chest & Lungs: Chest Wall Normal, Clear to auscultation bilat Cardiovascular: Regular Rate/Rhythm Pulses: NL carotid, radial, femoral, DP, PT Abdomen: Non-tender, Non-distended, Normoactive bowel tones, Soft Extremities: No cyanosis/clubbing/edema bilat Neurological: Grossly Neurologically Intact, Normal Speech Test 07/17/16 17:30 07/18/16 05:10 07/20/16 06:05 07/20/16 17:18 Hold Purple Top Tube Received (Received) D-Dimer 0.9mg/L (<0.50) Hold Blue Top Tube Received (Received) Total Bilirubin 0.2mg/dL (0.0-1.2) Aspartate Amino Transf (AST/SGOT) 15U/L (0-50) Alanine Aminotransferase (ALT/SGPT) 10U/L (0-32) Alkaline Phosphatase 102U/L (25-150) Troponin T < 0.010ug/L (0.0-0.011) Total Protein 7.1g/dL (6.4-8.4) Albumin 4.3g/dL (3.4-5.0) Hold Red Top Tube Received (Received) Hold [place] Top Tube Received (Received) Neutrophils (%) (Auto) 48.8% (40-74) Lymphocytes (%) (Auto) 38.1% (14-46) Monocytes (%) (Auto) 7.7% (4-12) Eosinophils (%) (Auto) 4.9% (0-5) Basophils (%) (Auto) 0.4% (0-3) Sodium Level 140mEq/L (134-144) Potassium Level 3.9mEq/L (3.5-5.2) Chloride Level 104mEq/L (97-108) Carbon Dioxide Level 23mmol/L (18-29) Blood Urea Nitrogen 9mg/dL (6-20) Creatinine 0.62mg/dL (0.57-1.00) Estimat Glomerular Filtration Rate 160mL/min (>59) Glucose Level 85mg/dL (60-99) Calcium Level 8.3mg/dL (8.5-10.1) White Blood Count 6.3th/mm3 (3.8-10.1) Red Blood Count 4.31mil/mm3 (3.90-5.20) Mean Corpuscular Volume 76.6fL (81-100) Mean Corpuscular Hemoglobin 23.4pg (27.0-35.0) Mean Corpuscular Hemoglobin Concent 30.6% (32.0-37.0) Red Cell Distribution Width 17.9% (12.3-15.4) Platelet Count 355bil/L (150-400) Urine Color Yellow (YELLOW) Urine Appearance Hazy (CLEAR,HAZY) Urine pH 6.0 (5.0-8.0) Urine Specific [place] 1.025 (1.003-1.035) Urine Protein Tracemg/dL (NEG,TRACE) Urine Glucose (UA) Negativemg/dL (NEGATIVE) Urine Ketones Negativemg/dL (NEGATIVE) Urine Occult Blood Large (NEGATIVE) Urine Nitrite Negative (NEGATIVE) Urine Bilirubin Negative (NEGATIVE) Urine Urobilinogen Normalmg/dL (NORMAL) Urine Leukocyte Esterase Negative (NEGATIVE) Urine RBC >50/hpf (0-2) Urine WBC 6-10/hpf (0-5) Urine Epithelial Cells Moderate/hpf (NONE-MOD) Urine Crystals None seen (NONE SEEN) Urine Bacteria Few/hpf (NONE-FEW) Urine Hyaline Casts None/lpf (NONE) Urine Granular Casts None seen (NONE SEEN) Urine Waxy Casts None seen (NONE SEEN) Urine Red Blood Cell Casts None seen (NONE SEEN) Urine White Blood Cell Casts None seen (NONE SEEN) Urine Mucus Present (None Seen) Urine Trichomonas None seen (NONE SEEN) Urine Yeast None (NONE SEEN) Urinalysis Comment None Urine Culture Reflexed Indicated Test 07/24/16 05:05 Hemoglobin 11.0g/dL (12.0-15.6) Hematocrit 35.4% (35.0-46.0) Prothrombin Time 22.5sec (8.1-12.5) Prothromb Time International Ratio 2.07ratio Activated Partial Thromboplast Time 72.0sec (22.8-33.0) Discharge Medications Discharge Medications Oxycodone ER (Oxycontin) 10 Mg Tab.er.12h 10 MG PO BID Prescribed by: OLIVIER TORRES DO Warfarin Sodium (Warfarin Sodium) 7.5 Mg Tablet 7.5 MG PO DAILY Prescribed by: OLIVIER TORRES DO As needed Ibuprofen (Ibuprofen) 800 Mg Tablet 800 MG PO Q6H PRN PRN For Pain Prescribed by: BYRON WELDON DO Magnesium Hydroxide (Milk of Magnesia) 2,400 Mg/10 Ml Oral.susp 10 ML PO HS PRN PRN For Bowel Movement Prescribed by: OLIVIER TORRES DO Polyethylene Glycol 3350 (Miralax) 17 Gm Powd.pack 17 GM PO DAILY PRN PRN For Constipation Prescribed by: OLIVIER TORRES, DO Additional med instructions Please take your coumadin 7.5mg each day at instructed. Please keep your leafy green daily intake regular as this can effect your coumadin level. We want to keep your level between 2 and 3 to help promote breakdown of your lung clots Followup Plan Disposition: home Follow-up plan PCP appointment on Thursday as scheduled Discharge Diet: Other (keep consistent vitamin K intake - you do not have to avoid leafy green vegetables but keep intake regular) Discharge Activity: Other (please continue exercising as tolerated - gradually increased AFTER follow up with your primary care physician) Patient Instructions Please take your coumadin 7.5mg each day at instructed. Please keep your leafy green daily intake regular as this can effect your coumadin level. We want to keep your level between 2 and 3 to help promote breakdown of your lung clots I would like you to check your INR (coumadin level) on tuesday 07/25 - if you have questions, please call your PCP office please continue exercising as tolerated - gradually increased AFTER follow up with your primary care physician. You are now on a blood thinner Follow-up with PCP in: Other (as sched thursday) Provider: Alley Bartlett MD Follow-up in: 1 week (for ureteral stent removal - please call for an appointment) Time spent 45 minutes spent with eval and mgmt including >50% spent face to face with education/counseling Attending Statement I have written an order for PT/INR, cbc, and bmp to be done tomorrow - pcp f/u on thursday copies to: Alley Bartlett MD; Yayo Antonio MD, David DO Jul 24, 2016 13:11
--- NOTE | 2016-07-24 13:19 | PCM.DIMED ---
Discharge Instructions Date of Service Jul 24, 2016 Dates of Hospitalization Jul 17, 2016 at 20:57 Discharge Diagnosis Discharge Diagnosis Bilateral Pulmonary emboli nephrolithiasis during - s/p stent placement tobacco dependency s/p cesarian section x 4 wks ago Medication Instructions Please take your coumadin 7.5mg each day at instructed. Please keep your leafy green daily intake regular as this can effect your coumadin level. We want to keep your level between 2 and 3 to help promote breakdown of your lung clots Diet Other (keep consistent vitamin K intake - you do not have to avoid leafy green vegetables but keep intake regular) Activity Other (please continue exercising as tolerated - gradually increased AFTER follow up with your primary care physician) Patient Instructions Please take your coumadin 7.5mg each day at instructed. Please keep your leafy green daily intake regular as this can effect your coumadin level. We want to keep your level between 2 and 3 to help promote breakdown of your lung clots I would like you to check your INR (coumadin level) on tuesday 07/25 - if you have questions, please call your PCP office please continue exercising as tolerated - gradually increased AFTER follow up with your primary care physician. You are now on a blood thinner Your pain medication can be excreted in breast milk - please do not take oxycodone while . instead you should try tylenol or ibuprofen as needed with food in your stomch Follow-up plan PCP appointment on Thursday as scheduled Follow-up with PCP in: Other (as sched thursday) Provider: Alley Bartlett MD Follow-up in: 1 week (for ureteral stent removal - please call for an appointment) Vincent Caruso DO Jul 24, 2016 13:19
--- NOTE | 2016-07-24 14:01 | NUR ---
Discharge went over discharge instructions, follow appointments, lab work on 16/03/17, and medications with pt who verbally acknowledged understanding. Removed intact IV X2 and tele. Pt refused wheelchair and left on foot with her mother
[2016-07-24] MEDS ORDERED: Warfarin 5 MG, Warfarin 2.5 MG PO ONE ×2 (17:00)
[2016-08-26] MEDS ORDERED: LORA0.5T PO (15:53)
[2016-09-10] MEDS ORDERED: WARF7.5T4 PO ×2 (10:18)
[2016-09-10] MEDS ORDERED: OMEP20TA24 PO (17:10)
== END 2016-07-24 14:04 | disposition home or self-care (01) | DRG 776 ==
LOC: SED 17:22 → MPC 20:57
PROVIDERS: ADMIT Internal Medicine; ATTEND Internal Medicine
DX: O88.83 Other embolism in the puerperium (principal); N20.0 Calculus of kidney; F17.200 Nicotine dependence, unspecified, uncomplicated; O90.89 Other complications of the puerperium, not elsewhere classified; R31.9 Hematuria, unspecified; O90.81 Anemia of the puerperium; R32 Unspecified urinary incontinence; O99.335 Smoking (tobacco) complicating the puerperium

== ENCOUNTER 2016-08-06 21:19 | Emergency (ER) | payer OTHER ==
[~2016-08-06] VITALS: Ht 157.5 cm; Wt 61.4 kg
[~2016-08-06 21:19] MED LIST changes: -DOCU-41 PO; -FERR-74 PO; +MAGN800O PO; -MECL-114 PO; -ONDA8TAB10 PO; -OXYC-465 PO; -PNV1TABL9 PO; +POLY17PO6 PO; -PREN1TAB25 PO; -Simethicone PO; -TAMS0.4C29 PO; -TRIA10.8 NS; +WARF7.5T4 PO
[2016-08-06 21:22] VITALS: BP 132/85; RESP 16; O2SAT 97
[2016-08-06 22:54] LABS: INR 7.13 ratio
--- NOTE | 2016-08-06 23:02 | ED.REPORT ---
HPI-General Illness Date of Service Aug 06, 2016 ED Provider: Jose R Figueroa DO A 30 year old female on Warfarin with a history of bilateral PE, stent, and c- section presents to the ED complaining of epistaxis. The pt began bleeding from the right nostril last night and has persisted intermittently since. Her INR was 4.6 when she measured it last night. She has not taken her last two doses of Warfarin. The pt has an appointment with a project engineer on 08/27/2016. Nursing Notes Stated Complaint: NOSE BLEED/BILAT PE Chief Complaint: ENT & Mouth Nursing Notes Reviewed: Yes Allergies: Coded Allergies: No Known Allergies (Verified , 08/06/16) Scheduled Warfarin Sodium (Warfarin Sodium) 7.5 Mg Tablet 7.5 MG PO DAILY Scheduled PRN Ibuprofen (Ibuprofen) 800 Mg Tablet 800 MG PO Q6H PRN PRN For Pain Magnesium Hydroxide (Milk of Magnesia) 2,400 Mg/10 Ml Oral.susp 10 ML PO HS PRN PRN For Bowel Movement Polyethylene Glycol 3350 (Miralax) 17 Gm Powd.pack 17 GM PO DAILY PRN PRN For Constipation General Time Seen by MD: 23:01 Chief Complaint Other (Epistaxis) Hx Obtained From: Patient Arrived By: Walk-in Sudden in Onset?: No Onset Occurred: 1 day ago Recent Healthcare: Recent doctor visit, Recent hospitalization Similar Sx Previous: No Past Medical History Past Medical History Hx of kidney stones UTI Depression and anxiety Blood clot Past Surgical History Exc. lipoma upper back Kidney stone removal Stent Family History Noncontributory Smoking History Never Smoker Social History Alcohol Use: Denies alcohol use Drug Use: Denies drug use Other Social History: Local resident Ambulatory Status Independent Review of Systems Full Review of Systems Constitutional: Denies: Fever Ears / Nose / Throat: Reports: Nose bleeding Respiratory: Denies: Non-productive cough, Shortness of breath Cardiovascular: Denies: Chest pain GI: Denies: Abdominal pain Musculoskeletal: Denies: Back pain, Neck pain Skin: Denies Rash Complete sys rev & neg: except as marked. Physical Exam Vital Signs Vital Signs Date Time Temp Pulse Resp B/P Pulse Ox O2 Delivery O2 Flow Rate FiO2 08/07/16 00:22 87 19 116/68 97 Room Air 08/06/16 21:22 36.6 85 16 132/85 97 Room Air Initial VS: Reviewed General/Constitutional: Awake, Alert Head / Eyes: Atraumatic, Normocephalic, PERRL, EOMI ENT: Atraumatic, Airway patent, Mucous membranes moist active bleeding from right nostril Neck: Atraumatic, Supple, Full range of motion Respiratory / Chest: Atraumatic, Breath sounds NL, Breath sounds = bilat, No respiratory distress Cardiovascular: Heart rate NL, Regular rhythm, Heart sounds NL Abdomen: Atraumatic, Soft, Non-tender Back: Atraumatic, Full range of motion Upper Extremities Upper Extremity / MS: Atraumatic, Full range of motion Lower Extremity / Pelvis / MS: Atraumatic, Full range of motion Skin: Atraumatic, Color NL, No rash, Warm, Dry Neurologic: Oriented X3, Speech NL, No motor deficits, No sensory deficits Psychiatric: Affect NL, Mood NL Interpretation & Diagnostics Lab Results Interpretation Test 08/06/16 22:05 Prothrombin Time 79.4sec (8.1-12.5) Prothromb Time International Ratio 7.13ratio Hold [place] Top Tube Received (Received) Pulse Oximetry Interpretation Pulse Oximetry Interpretation: 97% on room air Pulse Oximetry: Pulse Ox normal Procedures Epistaxis Management Time: 23:23 Procedure Performed by: ED physician Consent / Setup / Site Prep: Informed consent provided, Consent from patient , Time-out performed, Pulse oximeter applied, sexual abuse counsellor applied, Hand hygiene observed, Stand sterile technique Side and Location of Bleed: Nare right - anterior Pre-medication and Procedure: Rapid rhino inserted Post-Procedure / Complications: Bleeding stopped, No complications, Patient stable, Tolerated procedure well Re-Eval/Medical Decision Med Decision/Clinical Course Excellent hemostasis with a Rhino Rocket. She has a supratherapeutic INR. I consulted with our pharmacist. 2.5 mg of vitamin K was recommended and administered. I contacted with the nurse practitioner was on-call for Dr. Antonio. We will have Katharine seen tomorrow in the office in follow-up and have her pro time repeated tomorrow as well. She will be in Keflex twice daily while the Rhino Rocket in. I think she is going to need daily INRs to be sure that she is not supratherapeutic. We do not want to undergo anticoagulate her either due to the fact that she recently suffered from submassive pulmonary emboli. I explained this all the Katharine. She felt well and had good hemostasis. She is discharged in stable condition. Source of Hx: Old records Time of Eval: 23:23 Patient Status: Condition improved Re-Evaluation/Progress Note: Pt rechecked, who is comfortable. Epistaxis management is performed without complication. Diagnosis and the plan for discharge are discussed. The pt understands and agrees with the plan. All questions are addressed at this time. Consultation : Referral / Consult Name: Yayo Antonio MD Call Returned at: 23:30 Supervisor Throwing Department: Agrees with eval, Agrees with plan Note: Spoke with doctor receiving distribution station operator for Dr. Antonio, PCP, regarding pt's case. Recommends follow up. Counseled Regarding: Diagnosis, Lab results, Need for follow-up, When/why to return to ED Discharge & Departure Primary Impression: Epistaxis Disposition: Home Discharge Condition All VS Reviewed: Yes Condition: Stable Patient Instructions: Epistaxis (ED) Additional Instructions: Wear the rhino rocket for at least 48 hours. Take Keflex daily while the rhino rocket is in. You were given a single dose of Vitamin K in the emergency room. We consulted with the doctor receiving distribution station operator for Dr. Antonio. Call the office and the [facility] tomorrow to arrange follow up. Check with the [facility] tomorrow for further recommendations. Do not take Warfarin until told otherwise by your practitioner. Take 1-2 Percocet as needed for severe pain. Do not drive , drink alcohol, or consume acetaminophen while taking the Percocet. Take Zofran every 8 hours as needed for nausea. Referrals: Yayo Antonio MD (PCP) Lukas Spangler Attestation Portions of this note were transcribed by Deepa Snider. I, Dr. Figueroa personally performed the history, physical exam and medical decision-making; I reviewed and confirmed the accuracy of the information in the transcribed note. Signed by: Arthur Hussein, 08/07/2016 and 0155. copies to: Yayo Antonio MD; Lukas Spangler Todd P DO Aug 06, 2016 23:02 DEEPA SNIDER Aug 06, 2016 23:11
[2016-08-06] MEDS ORDERED: oxyCODONE-Acetamin 5-325 mg Tablet PO ONE (23:35)
[2016-08-06] MEDS ORDERED: Phytonadione (Adult) 10 mg/1 mL Inj PO ONE ×2 (23:35→23:50)
[2016-08-06] MEDS ORDERED: Ondansetron 8 mg ODT Tablet PO ONE (23:35)
[2016-08-06] MEDS ORDERED: _Ondansetron ODT 4 mg Tablet PO PRN (23:35)
[2016-08-06] MEDS ORDERED: _oxyCODONE/APAP 5-325 mg Tablet PO PRN (23:35)
[2016-08-06] MEDS ORDERED: PHYTONADIONE PO ONE (23:55)
[2016-08-07 00:22] VITALS: BP 116/68; PULSE 87; RESP 19; O2SAT 97
[2016-08-26] MEDS ORDERED: LORA0.5T PO (15:53)
[2016-09-10] MEDS ORDERED: WARF7.5T4 PO ×2 (10:18)
[2016-09-10] MEDS ORDERED: OMEP20TA24 PO (17:10)
== END 2016-08-07 00:24 | disposition home or self-care (01) ==
LOC: SED 21:19
DX: R04.0 Epistaxis (principal); Z87.440 Personal history of urinary (tract) infections; Z79.01 Long term (current) use of anticoagulants

== ENCOUNTER 2016-08-09 17:37 | Emergency (ER) | payer OTHER ==
[~2016-08-09] VITALS: Ht 157.5 cm; Wt 63.6 kg
[2016-08-09 17:41] VITALS: BP 126/86; PULSE 119; RESP 20; O2SAT 99
--- NOTE | 2016-08-09 18:18 | ED.REPORT ---
HPI-Chest Pain Under 40 Date of Service Aug 09, 2016 ED Provider: Jose R Figueroa DO A 30 year old female on Warfarin with a history of bilateral pulmonary emboli presents to the ED complaining of pleuritic chest pain. This is accompanied by cough and chills, which have developed in the last few days. The pt was seen three days ago for epistaxis and had a packing placed but has continued to bleed occasionally. Her INR when she was last seen was 2. Nursing Notes Stated Complaint: RECHECK Chief Complaint: General Complaint Nursing Notes Reviewed: Yes Allergies: Coded Allergies: No Known Allergies (Verified , 08/06/16) Scheduled Warfarin Sodium (Warfarin Sodium) 7.5 Mg Tablet 7.5 MG PO DAILY Scheduled PRN Ibuprofen (Ibuprofen) 800 Mg Tablet 800 MG PO Q6H PRN PRN For Pain Magnesium Hydroxide (Milk of Magnesia) 2,400 Mg/10 Ml Oral.susp 10 ML PO HS PRN PRN For Bowel Movement Polyethylene Glycol 3350 (Miralax) 17 Gm Powd.pack 17 GM PO DAILY PRN PRN For Constipation General Time Seen by MD: 18:18 Chief Complaint Chest pain Hx Obtained From: Patient Arrived By: Walk-in Sudden in Onset?: No Onset Occurred: 2 days ago Symptom Duration: Since onset Recent Healthcare: Recent doctor visit, Recent hospitalization Similar Sx Previous: Yes Past Medical History Past Medical History Hx of kidney stones UTI Depression and anxiety Bilateral PE Past Surgical History Exc. lipoma upper back Kidney stone removal Stent Family History Noncontributory Smoking History Never Smoker Social History Alcohol Use: Denies alcohol use Drug Use: Denies drug use Other Social History: Local resident Ambulatory Status Independent Review of Systems Constitutional: Reports: Chills Respiratory: Reports: Non-productive cough, Pleuritic pain GI: Denies: Abdominal pain Musculoskeletal: Denies: Back pain, Neck pain Skin: Denies Rash Complete sys rev & neg: except as marked. Physical Exam Initial Vital Signs Vital Signs (First) Date Time Temp Pulse Resp B/P Pulse Ox O2 Delivery O2 Flow Rate FiO2 08/09/16 17:41 36 119 20 126/86 99 Room Air Initial VS: Reviewed General/Constitutional: Awake, Alert Respiratory / Chest: Atraumatic, Breath sounds NL, Breath sounds = bilat, No respiratory distress Cardiovascular: Heart rate NL, Regular rhythm, Heart sounds NL Neck: Atraumatic, Supple, Full range of motion Abdomen: Atraumatic, Soft, Non-tender Back: Atraumatic, Full range of motion Lower Extremity / Pelvis / MS: Atraumatic, Full range of motion Skin: Atraumatic, Color NL, No rash, Warm, Dry Neurologic: Oriented X3, Speech NL, No motor deficits, No sensory deficits Psychiatric: Affect NL, Mood NL Head / Eyes: Atraumatic, Normocephalic, PERRL, EOMI ENT: Atraumatic, Airway patent, Mucous membranes moist Upper Extremity / MS: Atraumatic, Full range of motion Interpretation & Diagnostics Lab Results Interpretation Result Diagram: 08/09/16 1823 08/09/16 1823 Test 08/09/16 18:23 08/09/16 21:15 White Blood Count 6.3th/mm3 (3.8-10.1) Red Blood Count 5.09mil/mm3 (3.90-5.20) Hemoglobin 12.2g/dL (12.0-15.6) Hematocrit 38.4% (35.0-46.0) Mean Corpuscular Volume 75.4fL (81-100) Mean Corpuscular Hemoglobin 24.0pg (27.0-35.0) Mean Corpuscular Hemoglobin Concent 31.8% (32.0-37.0) Red Cell Distribution Width 17.9% (12.3-15.4) Platelet Count 441bil/L (150-400) Neutrophils (%) (Auto) 55.2% (40-74) Lymphocytes (%) (Auto) 37.5% (14-46) Monocytes (%) (Auto) 5.6% (4-12) Eosinophils (%) (Auto) 1.0% (0-5) Basophils (%) (Auto) 0.5% (0-3) Prothrombin Time 22.9sec (8.1-12.5) Prothromb Time International Ratio 2.11ratio D-Dimer < 0.5mg/L (<0.50) Sodium Level 141mEq/L (134-144) Potassium Level 3.9mEq/L (3.5-5.2) Chloride Level 102mEq/L (97-108) Carbon Dioxide Level 22mmol/L (18-29) Blood Urea Nitrogen 13mg/dL (6-20) Creatinine 0.61mg/dL (0.57-1.00) Estimat Glomerular Filtration Rate 163mL/min (>59) Glucose Level 89mg/dL (60-99) Calcium Level 9.6mg/dL (8.5-10.1) Magnesium Level 1.9mg/dL (1.6-2.6) Total Bilirubin 0.3mg/dL (0.0-1.2) Aspartate Amino Transf (AST/SGOT) 24U/L (0-50) Alanine Aminotransferase (ALT/SGPT) 24U/L (0-32) Alkaline Phosphatase 83U/L (25-150) Total Protein 8.2g/dL (6.4-8.4) Albumin 4.8g/dL (3.4-5.0) Hold Rodriguez Top Tube Received (Received) Troponin T 0.010ug/L (0.0-0.011) Pulse Oximetry Interpretation Pulse Oximetry Interpretation: 99% on room air Pulse Oximetry: Pulse Ox normal ECG Interpretation ECG Interpretation: normal sinus rhythm with a rate of 93 delayed transition no acute ischemia nonspecific ST segment changes Time: 18:11 Interpreted by: ED physician X-Ray Chest Interpretation Chest Xray Interpretation: IMPRESSION: 1. No acute cardiopulmonary disease. Dictated by: Cristian Spencer M.D. on 08/09/2016 at 21:23 Approved by: Cristian Spencer M.D. on 08/09/2016 at 21:23 Interpretation / Wet Read by: Interpret - Radiologist Re-Eval/Medical Decision Med Decision/Clinical Course Normal DDimer and therapeutic inr. Serial troponins normal. Most likely bronchitis: chills, cough recent PE. Repeat CT not indicated No signs of Warfarin failure. She is unable to take NSAIDs due to the fact that she is on warfarin. Short course of Percocet was prescribed for the pleuritic pain. Course of antibiotics and close outpatient follow-up. Routine opiate warnings given. Source of Hx: Old records Re-Evaluation/Progress #1: Time of Eval: 20:49 Patient Status: Condition improved Re-Evaluation/Progress Note: Pt rechecked, who is resting comfortably. She is informed of her lab results and plan for further treatment. The pt agrees with the plan. Re-Evaluation/Progress #2: Time of Eval: 22:01 Patient Status: Condition improved Re-Evaluation/Progress Note: Pt rechecked, who is comfortable. Diagnosis and the plan for discharge are discussed. The pt understands and agrees with the plan. All questions are addressed at this time. Counseled Regarding: Diagnosis, Lab results, Need for follow-up, When/why to return to ED Discharge & Departure Primary Impression: Pleuritic chest pain Additional Impression: Bronchitis Disposition: Home Discharge Condition All VS Reviewed: Yes Condition: Stable Patient Instructions: Acute Bronchitis (ED) Additional Instructions: Finish the Z-pack. Drink plenty of water to stay hydrated. Take 1-2 Percocet every 6 hours as needed for pain. Do not drive, drink alcohol, or consume acetaminophen while taking the Percocet. Use the Percocet sparingly because it can be habit forming. However you cannot use anti-inflammatories while on Warfarin. Your cardiac enzymes and EKG were reassuring. I would like you to see Dr. Antonio in the office next week. Return to the emergency department if you develop any new or worsening symptoms. Referrals: Yayo Antonio MD (PCP) Arthur Attestation Portions of this note were transcribed by Deepa Snider. I, Dr. Figueroa personally performed the history, physical exam and medical decision-making; I reviewed and confirmed the accuracy of the information in the transcribed note. Signed by: Arthur Hussein, 08/09/2016 and 2330. copies to: Yayo Antonio MD, Todd P DO Aug 09, 2016 18:18 DEEPA SNIDER Aug 09, 2016 18:25
[2016-08-09] MEDS ORDERED: Ondansetron 2 mg/mL 2 mL Inj IVPUSH PRN (18:20)
[2016-08-09] MEDS ORDERED: HYDROmorphone 0.5 mg/0.5 mL iSecure Syringe IVPUSH PRN (18:20)
[2016-08-09] MEDS ORDERED: Albuterol-Ipratropium 3 mL Inhalation Solution NEB ONE (18:30)
[2016-08-09 18:39] LABS: BASOPHILS % (AUTO) 0.5 % (0-3); MONOCYTES % (AUTO) 5.6 % (4-12); Mean Corpuscular Volume 75.4 fL (81-100); NEUTROPHILS % (AUTO) 55.2 % (40-74); Platelet Count 441 bil/L (150-400)
[2016-08-09 18:55] LABS: D-DIMER < 0.5 mg/L (<0.50); INR 2.11 ratio
[2016-08-09 19:06] VITALS: PULSE 92; RESP 18; O2SAT 98
[2016-08-09 19:08] LABS: TROPONIN T < 0.010 ug/L (0.0-0.011)
[2016-08-09 19:10] LABS: Magnesium 1.9 mg/dL (1.6-2.6)
--- NOTE | 2016-08-09 21:25 | DRSVH ---
PROCEDURE: X-RAY CHEST, TWO VIEWS ([id number]) INDICATIONS: chest pain, recent PE TECHNIQUE: 2 views of the chest were acquired. COMPARISON: [facility], CR, XR CHEST 2VW, 07/06/2016, 18:40. FINDINGS: Surgical changes and devices: None. Lungs and pleura: No pleural effusions or pneumothorax. Lungs are clear. Mediastinum: Mediastinal contours are normal. Heart size is normal. Bones and chest wall: No suspicious bony abnormalities. Soft tissues appear unremarkable. IMPRESSION: 1. No acute cardiopulmonary disease. Dictated by: Cristian Spencer M.D. on 08/09/2016 at 21:23 Approved by: Cristian Spencer M.D. on 08/09/2016 at 21:23
[2016-08-09] MEDS ORDERED: _oxyCODONE/APAP 5-325 mg Tablet PO PRN (21:55)
[2016-08-09 22:20] VITALS: BP 119/61; PULSE 77; RESP 18; O2SAT 100
[2016-08-10] MEDS ORDERED: Sodium Chloride LOK Flush 10 mL Syringe IVFLUSH SCH (00:30)
[2016-08-26] MEDS ORDERED: LORA0.5T PO (15:53)
[2016-09-10] MEDS ORDERED: WARF7.5T4 PO ×2 (10:18)
[2016-09-10] MEDS ORDERED: OMEP20TA24 PO (17:10)
== END 2016-08-09 22:35 | disposition home or self-care (01) ==
LOC: SED 17:37
DX: R07.81 Pleurodynia (principal); J40 Bronchitis, not specified as acute or chronic; Z86.711 Personal history of pulmonary embolism; Z87.442 Personal history of urinary calculi; Z87.440 Personal history of urinary (tract) infections; Z79.01 Long term (current) use of anticoagulants
CPT/HCPCS: 36415; 71020; 80053; 83735; 84484; 85025; 85379; 85610; 93005; 94664; 96374; 96375; 99285; J1170; J2405; J7620

== ENCOUNTER 2016-08-21 13:11 | Emergency (ER) | payer OTHER ==
[~2016-08-21] VITALS: Ht 157.5 cm; Wt 63.6 kg
[2016-08-21 13:16] VITALS: BP 119/76; PULSE 92; RESP 16; O2SAT 100
--- NOTE | 2016-08-21 13:31 | ED.REPORT ---
HPI-Chest Pain Under 40 Date of Service Aug 21, 2016 ED Provider: Dr. Aviles Pt is a 30 y/o female w/ a hx of bilateral PE presenting to the ED worsening right sternal CP and dyspnea on exertion onset 2 days ago. She describes her chest pain as pleuritic and sharp. She has an appointment to see hospital chief executive officer Dr. Spangler on Thursday but was concerned so she wanted to be evaluated today. She is taking half of of 7.5 mg Warfarin daily at dinner as directed and has not missed any recent doses. Her bilateral PE was diagnosed on July 17 3 weeks after a and she was told she has some sort of predisposition but has not had her first appointment with Dr. Spangler yet to further understand what this predisposition is. She was subsequently discharged in good condition. On August 06, she experienced epistaxis with an associated INR of about 7 and was evaluated in the ED and discharged after a Vitamin K infusion. On August 09, she presented to the ED complaining of pleuritic chest pain and URI symptoms and was diagnosed with bronchitis at which time her INR was therapeutic. Nursing Notes Stated Complaint: CHEST PAIN Chief Complaint: Chest Pain Nursing Notes Reviewed: Yes Allergies: Coded Allergies: No Known Allergies (Verified , 08/06/16) Scheduled Enoxaparin (Lovenox) 60 Mg/0.6 Ml Syringe 60 MG SUBQ Q12 Warfarin Sodium (Warfarin Sodium) 7.5 Mg Tablet 7.5 MG PO DAILY Scheduled PRN Hydrocodone-Acetaminophen 5-325 mg (Hydrocodone-Acetaminophen 5-325 mg) 1 Each Tablet 1 TABLET PO Q4H PRN PRN For Pain Ibuprofen (Ibuprofen) 800 Mg Tablet 800 MG PO Q6H PRN PRN For Pain Magnesium Hydroxide (Milk of Magnesia) 2,400 Mg/10 Ml Oral.susp 10 ML PO HS PRN PRN For Bowel Movement Polyethylene Glycol 3350 (Miralax) 17 Gm Powd.pack 17 GM PO DAILY PRN PRN For Constipation General Time Seen by MD: 13:30 Chief Complaint Chest pain Hx Obtained From: Patient Arrived By: Walk-in Sudden in Onset?: No Onset Occurred: 2 days ago Symptom Duration: Since onset Location: : Chest right Quality: Painful, Pleuritic, Sharp Radiation: : Does not radiate Migration/Movement: Reports: None Severity: Current: Moderate Severity: Maximum: Moderate Recent Healthcare: Recent doctor visit, Recent testing, Previous diagnosis, Prior workup Similar Sx Previous: Yes Past Medical History Past Medical History Notes: [employer]: Dr. Spangler Past Medical History Hx of kidney stones UTI Depression and anxiety Bilateral PE after - soon to be worked up by Dr. Spangler Past Surgical History Exc. lipoma upper back Kidney stone removal Stent Family History Noncontributory Smoking History Never Smoker Social History Alcohol Use: Denies alcohol use Drug Use: Denies drug use Other Social History: Local resident Ambulatory Status Independent Review of Systems Constitutional: Denies: Chills, Fever Respiratory: Reports: Shortness of breath, Denies: Non-productive cough Cardiovascular: Reports: Chest pain, Dyspnea on exertion GI: Denies: Abdominal pain, Diarrhea, Nausea, Vomiting Complete sys rev & neg: except as marked. Physical Exam Initial Vital Signs Vital Signs (First) Date Time Temp Pulse Resp B/P Pulse Ox O2 Delivery O2 Flow Rate FiO2 08/21/16 13:16 37.1 92 16 119/76 100 Room Air Initial VS: Reviewed, Vital signs normal Head / Eyes: Atraumatic, Normocephalic, PERRL ENT: Mucous membranes moist, Conjunctiva normal, No scleral icterus Neck: Supple, Full range of motion Abdomen / GI: Soft, Non-tender, No guarding, No rebound, No distention Extremities: Vascular intact, Neuro intact, No swelling, No tenderness Skin: Warm, Dry, No cyanosis Neurologic: Alert, Oriented, Nonfocal Psychiatric: Mood/affect normal, Behavior normal, Normal thought content General/Constitutional: Awake, Alert, No acute distress, Well appearing, Cooperative, Not toxic appearing Respiratory / Chest: Atraumatic, Breath sounds NL, Breath sounds = bilat, No respiratory distress, No rales, No rhonchi, No wheezing, No retractions, No stridor, No chest tenderness, No chest wall deformity, No crepitus Cardiovascular: Heart rate NL, Regular rhythm, Heart sounds NL, No gallop, No murmurs, No rubs, Cap refill not delayed, Peripheral circulation NL Interpretation & Diagnostics Lab Results Interpretation Result Diagram: 08/21/16 1438 08/21/16 1438 Test 08/21/16 14:38 08/21/16 14:47 White Blood Count 6.4th/mm3 (3.8-10.1) Red Blood Count 4.50mil/mm3 (3.90-5.20) Hemoglobin 11.0g/dL (12.0-15.6) Hematocrit 34.3% (35.0-46.0) Mean Corpuscular Volume 76.2fL (81-100) Mean Corpuscular Hemoglobin 24.4pg (27.0-35.0) Mean Corpuscular Hemoglobin Concent 32.1% (32.0-37.0) Red Cell Distribution Width 17.8% (12.3-15.4) Platelet Count 288bil/L (150-400) Neutrophils (%) (Auto) 47.7% (40-74) Lymphocytes (%) (Auto) 43.4% (14-46) Monocytes (%) (Auto) 5.6% (4-12) Eosinophils (%) (Auto) 3.0% (0-5) Basophils (%) (Auto) 0.3% (0-3) Prothrombin Time 14.6sec (8.1-12.5) Prothromb Time International Ratio 1.36ratio Sodium Level 139mEq/L (134-144) Potassium Level 4.2mEq/L (3.5-5.2) Chloride Level 103mEq/L (97-108) Carbon Dioxide Level 22mmol/L (18-29) Blood Urea Nitrogen 11mg/dL (6-20) Creatinine 0.54mg/dL (0.57-1.00) Estimat Glomerular Filtration Rate 187mL/min (>59) Glucose Level 86mg/dL (60-99) Calcium Level 9.2mg/dL (8.5-10.1) Magnesium Level 2.0mg/dL (1.6-2.6) Total Bilirubin 0.2mg/dL (0.0-1.2) Aspartate Amino Transf (AST/SGOT) 19U/L (0-50) Alanine Aminotransferase (ALT/SGPT) 18U/L (0-32) Alkaline Phosphatase 59U/L (25-150) Troponin T < 0.010ug/L (0.0-0.011) Total Protein 7.1g/dL (6.4-8.4) Albumin 4.4g/dL (3.4-5.0) Hold Rodriguez Top Tube Received (Received) Hold Urine Received (Received) ECG Interpretation ECG Interpretation: Sinus rhythm rate 82 Poor R wave progression Time: 14:25 Interpreted by: ED physician Normal ECG Interpretation: No acute ischemic changes CT Chest Interpretation IMPRESSION: The prior pulmonary emboli present 07/17/16 have resolved. No new pulmonary emboli are present. Throughout the lung parenchyma no inflammatory process is seen. A source of new chest pain is not identified. Dictated by: Gerry Maloney M.D. on 08/21/2016 at 16:25 Approved by: Gerry Mlaoney M.D. on 08/21/2016 at 16:27 Study type: CT pulm angiogram Interpretation / Wet Read by: Interpret - Radiologist Re-Eval/Medical Decision Med Decision/Clinical Course 30 year-old female with history of PE in recent past. No PE on CT, is sub-theraputic on INR today. Will start on lovenox to bridge and increase warfarin to 7.5 and 3.7 on alt days. Source of Hx: Old records Re-Evaluation/Progress : Time of Eval: 17:26 Re-Evaluation/Progress Note: Pt rechecked. Discussed negative imaging findings. Informed pt of plan for treatment. Pt understands and agrees with plan for treatment. F/U instructions and RTER warnings given. All questions addressed. Counseled Regarding: Diagnosis, Lab results, Need for follow-up, When/why to return to ED Discharge & Departure Primary Impression: Chest pain Chest pain type: chest pain on breathing Qualified Code: R07.1 - Chest pain on breathing Disposition: Home Discharge Condition All VS Reviewed: Yes Condition: Stable Additional Instructions: In the ED today, we evaluated you for chest pain and a history of PE. No new PE or other serious cause for chest pain is see. Your protime is low today so we will start lovenox and increase warfaring. Take 7.5mg warfarin tonight, then half a 7.5mg pill tomorrow. Alternate every other day, follow up with coumadin clinic on thursday. Referrals: Yayo Antonio MD (PCP) Lukas Spangler DO (Family) Arthur Attestation Portions of this note were transcribed by Braydon Momin. I, Dr. Aviles personally performed the history, physical exam and medical decision-making; I reviewed and confirmed the accuracy of the information in the transcribed note. Signed by Arthur Bartlett, 08/21/16 - 1400 copies to: Yyao Antonio MD; Lukas Spangler Donald L MD Aug 21, 2016 13:31 BRAYDON MOMIN Aug 21, 2016 13:50
[2016-08-21] MEDS ORDERED: 0.9% Sodium Chloride 1,000 ML IV ONE (14:03)
[2016-08-21 14:44] LABS: BASOPHILS % (AUTO) 0.3 % (0-3); MONOCYTES % (AUTO) 5.6 % (4-12); Mean Corpuscular Hemoglobin 24.4 pg (27.0-35.0); Mean Corpuscular Volume 76.2 fL (81-100); NEUTROPHILS % (AUTO) 47.7 % (40-74); Platelet Count 288 bil/L (150-400)
[2016-08-21 14:58] LABS: INR 1.36 ratio
[2016-08-21 15:16] LABS: TROPONIN T < 0.010 ug/L (0.0-0.011)
[2016-08-21 16:21] VITALS: BP 119/60; PULSE 66; RESP 19; O2SAT 98
--- NOTE | 2016-08-21 16:29 | DRSVH ---
PROCEDURE: CT ANGIO CHEST PULMONARY EMBOLISM ([id number]) INDICATIONS: prev PE, chest pain TECHNIQUE: After the administration of intravenous contrast, 2 mm thick sections acquired from the pulmonary api elvin to the posterior costophrenic angles. 3-dimensional maximum intensity projection (MIP) coronal a nd sagittal reformats were then acquired through the thorax. For radiation dose reduction, the follo wing was used: automated exposure control, adjustment of mA and/or kV according to patient size. COMPARISON: [facility], CT, CT ANGIO CHEST PE, 07/17/2016, 19:31. FINDINGS: Image quality: Excellent. Pulmonary arteries: Pulmonary arteries are normal in size, and demonstrate no intraluminal filling d efects to suggest central pulmonary embolism. Lungs and pleura: Lungs are clear. No pleural effusions or pneumothorax. Central and peripheral ai rways are patent. Mediastinum: Heart size is normal, without pericardial effusion. No mediastinal or hilar adenopathy . Thoracic aorta is normal in caliber and enhancement. Esophagus is normal in caliber, without hiat al hernia. Bones and chest wall: No suspicious bony lesions. Ribs and thoracic spine appear intact throughout. Thyroid gland appears normal where well visualized. No axillary or supraclavicular adenopathy. Abdomen: Visualized upper abdominal solid organs appear normal in the early arterial phase of enhanc ement. IMPRESSION: The prior pulmonary emboli present 07/17/16 have resolved. No new pulmonary emboli are pre sent. Throughout the lung parenchyma no inflammatory process is seen. A source of new chest pain is not identified. Dictated by: Gerry Maloney M.D. on 08/21/2016 at 16:25 Approved by: Gerry Maloney M.D. on 08/21/2016 at 16:27
[2016-08-21] MEDS ORDERED: LOV60 SUBQ (16:47)
[2016-08-21] MEDS ORDERED: HYDR-4003 PO (17:27)
[2016-08-21 17:38] VITALS: BP 119/60; PULSE 83; RESP 18; O2SAT 99
[2016-08-26] MEDS ORDERED: LORA0.5T PO (15:53)
[2016-09-10] MEDS ORDERED: WARF7.5T4 PO ×2 (10:18)
[2016-09-10] MEDS ORDERED: OMEP20TA24 PO (17:10)
== END 2016-08-21 17:39 | disposition home or self-care (01) ==
LOC: SED 13:11
DX: R07.1 Chest pain on breathing (principal); Z79.01 Long term (current) use of anticoagulants
CPT/HCPCS: 36415; 71275; 80053; 81025; 83735; 84484; 85025; 85610; 93005; 96360; 96372; 99285; J1650; J7030; Q9967

== ENCOUNTER 2016-09-16 09:06 | Emergency (ER) | payer OTHER ==
[~2016-09-16] VITALS: Ht 157.5 cm; Wt 59.1 kg
[~2016-09-16 09:06] MED LIST changes: -IBUP800T28 PO; +LORA0.5T PO; -MAGN800O PO; +OMEP20TA24 PO; -POLY17PO6 PO
[2016-09-16 09:09] VITALS: BP 133/92; PULSE 121; RESP 20; O2SAT 100
--- NOTE | 2016-09-16 09:11 | ED.REPORT ---
HPI-Chest Pain Under 40 Date of Service September 16, 2016 ED Provider: Dr. Goss Pt is a 30 year old female with a hx of PE 2 months ago on Warfarin and thyroid issues presenting to the ED complaining of 7/10 chest pain and tightness. Associated symptoms include cough, hemoptysis (clots), SOB, blood in stool for weeks (black, oily, describes like wet charcoal), nausea, vomiting bile. Denies fever, chills, or feeling "sicker than normal." She was recently admitted to the hospital and was sent home on Warfarin and Lovenox, and is still taking the Warfarin but finished Lovenox 2 days ago. Pt last had her INR checked which was 3.2 1 week ago. Pt is being followed by Dr. Spangler, hematology. Nursing Notes Stated Complaint: COUGHING UP BLOOD Chief Complaint: Respiratory Distress Nursing Notes Reviewed: Yes Allergies: Coded Allergies: No Known Allergies (Verified , 08/25/16) Scheduled Citalopram (Citalopram) 20 Mg Tablet 20 MG PO DAILY Enoxaparin (Lovenox) 60 Mg/0.6 Ml Syringe 60 MG SUBQ DAILY Pantoprazole DR (Protonix) 40 Mg Tablet 40 MG PO DAILY Warfarin Sodium (Warfarin Sodium) 7.5 Mg Tablet 7.5 MG PO every oth day Warfarin Sodium (Warfarin Sodium) 7.5 Mg Tablet 3.25 MG PO alter day w/7.5mg Scheduled PRN Guaifenesin/Codeine Phosphate (Guaifenesin-Codeine Syrup) 10 Ml Liquid 10 ML PO QID PRN PRN For Cough General Time Seen by MD: 09:19 Chief Complaint Chest pain Hx Obtained From: Patient Arrived By: Walk-in Sudden in Onset?: No Onset Occurred: Just prior to arrival Symptom Duration: Since onset Quality: Painful Severity: Current: Pain level 7 out of 10 Severity: Maximum: Moderate Recent Healthcare: Recent doctor visit, Recent hospitalization Similar Sx Previous: No Risk Factors )( PE Risk Stratification Previous PE Risk factors reviewed Past Medical History 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 lipoma upper back Kidney stone removal Stent Family History Noncontributory Smoking History Former Smoker Social History Alcohol Use: Denies alcohol use Drug Use: Denies drug use Other Social History: Local resident Ambulatory Status Independent Review of Systems Constitutional: Denies: Chills, Fever Respiratory: Reports: Prod cough, bloody, Shortness of breath Cardiovascular: Reports: Chest pain GI: Reports: Bloody/tarry stool, Nausea, Vomiting Complete sys rev & neg: except as marked. Physical Exam Initial Vital Signs Vital Signs (First) Date Time Temp Pulse Resp B/P Pulse Ox O2 Delivery O2 Flow Rate FiO2 09/16/16 09:09 37.0 121 20 133/92 100 Room Air Initial VS: Reviewed Head / Eyes: Atraumatic, Normocephalic, PERRL ENT: Mucous membranes moist, Conjunctiva normal, No scleral icterus Abdomen / GI: Soft, Non-tender, No guarding, No rebound, No distention Skin: Warm, Dry, No cyanosis Neurologic: Alert, Oriented, Nonfocal Psychiatric: Mood/affect normal, Behavior normal, Normal thought content General/Constitutional: Awake, Alert Distress / Hydration: Positive: Distress moderate Nauseated Respiratory / Chest: Breath sounds NL, Breath sounds = bilat, No respiratory distress, No rales, No rhonchi, No wheezing, No chest tenderness Cardiovascular: Regular rhythm Heart Rate / Rhythm: Positive: Tachycardia Back: Atraumatic, Full range of motion, Painless range of motion Midline horizontal scar upper thoracic area well healing. Rectum / Perineum: Atraumatic Guaiac negative. Interpretation & Diagnostics Lab Results Interpretation Result Diagram: 09/16/16 0955 09/16/16 0955 Test 09/16/16 09:55 09/16/16 11:20 White Blood Count 5.9th/mm3 (3.8-10.1) Red Blood Count 4.75mil/mm3 (3.90-5.20) Hemoglobin 12.0g/dL (12.0-15.6) Hematocrit 36.9% (35.0-46.0) Mean Corpuscular Volume 77.7fL (81-100) Mean Corpuscular Hemoglobin 25.3pg (27.0-35.0) Mean Corpuscular Hemoglobin Concent 32.5% (32.0-37.0) Red Cell Distribution Width 17.5% (12.3-15.4) Platelet Count 312bil/L (150-400) Neutrophils (%) (Auto) 65.2% (40-74) Lymphocytes (%) (Auto) 25.6% (14-46) Monocytes (%) (Auto) 6.5% (4-12) Eosinophils (%) (Auto) 2.0% (0-5) Basophils (%) (Auto) 0.2% (0-3) Prothrombin Time 11.2sec (8.1-12.5) Prothromb Time International Ratio 1.05ratio D-Dimer 1.28mg/L FEU (<0.50) Sodium Level 137mEq/L (134-144) Potassium Level 4.1mEq/L (3.5-5.2) Chloride Level 100mEq/L (97-108) Carbon Dioxide Level 21mmol/L (18-29) Blood Urea Nitrogen 10mg/dL (6-20) Creatinine 0.53mg/dL (0.57-1.00) Estimat Glomerular Filtration Rate 191mL/min (>59) Glucose Level 84mg/dL (60-99) Calcium Level 9.3mg/dL (8.5-10.1) Magnesium Level 1.6mg/dL (1.6-2.6) Total Bilirubin 0.5mg/dL (0.0-1.2) Aspartate Amino Transf (AST/SGOT) 31U/L (0-50) Alanine Aminotransferase (ALT/SGPT) 31U/L (0-32) Alkaline Phosphatase 78U/L (25-150) Troponin T 0.010ug/L (0.0-0.011) Total Protein 7.5g/dL (6.4-8.4) Albumin 4.5g/dL (3.4-5.0) Hold Urine Received (Received) ECG Interpretation ECG Interpretation: Nonspecific ST changes. Time: 09:30 Interpreted by: ED physician Normal ECG Interpretation: Normal rate (84), Normal sinus rhythm CT Chest Interpretation IMPRESSION: 1. No pulmonary embolism. 2. No consolidation or effusion. Dictated by: Elaine Bartlett M.D. on 09/16/2016 at 11:51 Study type: CT pulm angiogram Interpretation / Wet Read by: Interpret - Radiologist Re-Eval/Medical Decision Med Decision/Clinical Course Overall her story is very concerning for both GI bleeding and recurrent pulmonary embolism especially in the setting of a subtherapeutic INR and recent discontinuation of Lovenox. However, her CT angiogram of her chest was negative for PE, her stool guaiac was negative, her hemoglobin is stable and in fact above had been on the previous lab draw. It does not seem at this time that she has clinically significant GI bleeding or pulmonary embolism. She was given a therapeutic dose of Lovenox in the emergency department prior to CAT scan due to the high risk nature of her complaint and past medical history. Her hematology Dr. was consulted and recommended resuming outpatient Lovenox, agreed with Protonix, and would help follow the patient up in approximately one week. Return and follow-up precautions given. Re-Evaluation/Progress #1: Time of Eval: 10:49 Patient Status: Condition improved Re-Evaluation/Progress Note: Performed rectal exam. Re-Evaluation/Progress #2: Time of Eval: 12:13 Patient Status: Condition improved Re-Evaluation/Progress Note: Discussed CT results. Re-Evaluation/Progress #3: Time of Eval: 12:48 Patient Status: Condition improved Re-Evaluation/Progress Note: Pt symptoms improved. Discussed plan for discharge. Pt understands and agrees with plan. Consultation : Referral / Consult Name: Lukas Spangler DO Call Returned at: 12:24 Methods Examiner: Agrees with plan Note: Oncologist. Resume Lovenox 1mg/kg daily for 1 week and follow up in the clinic. Hold Lovenox and call hemonc if any bleeding. Counseled Regarding: Diagnosis, Lab results, Need for follow-up, When/why to return to ED Discharge & Departure Primary Impression: Hemoptysis Disposition: Home Discharge Condition All VS Reviewed: Yes Condition: Improved Additional Instructions: There is no evidence of pulmonary embolism or life-threatening intestinal bleeding at this time. Begin taking Lovenox 60 mg once a day. Your INR was 1.05 today, call the Coumadin clinic for adjustment of your Coumadin level. Begin taking Protonix to prevent intestinal bleeding. Call your oncologist will return to the ER if you develop vomiting blood or blood in your stool or other concerns. Referrals: Yayo Antonio MD (PCP) Lukas Spangler DO (Family) Scribe Attestation Portions of this note were transcribed by Brianda Snyder. I, Dr. O'Elaine personally performed the history, physical exam and medical decision-making; I reviewed and confirmed the accuracy of the information in the transcribed note. Signed by: Arthur Boothe, 09/16/2016 at 1310. copies to: Yayo Antonio MD; Lukas Spangler Timothy S DO September 16, 2016 09:11 BRIANDA SNYDER September 16, 2016 09:25
[2016-09-16] MEDS ORDERED: 0.9% Sodium Chloride 1,000 ML IV ONE (09:16)
[2016-09-16] MEDS ORDERED: Ondansetron 2 mg/mL 2 mL Inj IVPUSH ONE (09:20)
[2016-09-16] MEDS ORDERED: Ondansetron 8 mg ODT Tablet PO ONE (09:35)
[2016-09-16 10:06] LABS: BASOPHILS % (AUTO) 0.2 % (0-3); MONOCYTES % (AUTO) 6.5 % (4-12); Mean Corpuscular Hemoglobin 25.3 pg (27.0-35.0); Mean Corpuscular Volume 77.7 fL (81-100); NEUTROPHILS % (AUTO) 65.2 % (40-74); Platelet Count 312 bil/L (150-400)
[2016-09-16 10:26] LABS: D-Dimer 1.28 mg/L FEU (<0.50); INR 1.05 ratio
[2016-09-16 10:31] LABS: TROPONIN T 0.01 ug/L (0.0-0.011)
[2016-09-16 10:42] LABS: Magnesium 1.6 mg/dL (1.6-2.6)
[2016-09-16] MEDS ORDERED: CITA20TA11 PO (10:52)
[2016-09-16 11:23] VITALS: BP 118/57; PULSE 55; RESP 18; O2SAT 100
--- NOTE | 2016-09-16 12:04 | DRSVH ---
PROCEDURE: CT ANGIO CHEST PULMONARY EMBOLISM ([id number]) INDICATIONS: chest pain, h/o PE TECHNIQUE: After the administration of intravenous contrast, 2 mm thick sections acquired from the pulmonary api elvin to the posterior costophrenic angles. 3-dimensional maximum intensity projection (MIP) coronal a nd sagittal reformats were then acquired through the thorax. For radiation dose reduction, the follo wing was used: automated exposure control, adjustment of mA and/or kV according to patient size. COMPARISON: [facility], CT, CT ANGIO CHEST PE, 08/21/2016, 15:57. FINDINGS: Image quality: Excellent. Pulmonary arteries: Pulmonary arteries are normal in size, and demonstrate no intraluminal filling d efects to suggest central pulmonary embolism. Lungs and pleura: Lungs are clear. No pleural effusions or pneumothorax. Central and peripheral ai rways are patent. Mediastinum: Heart size is normal, without pericardial effusion. No mediastinal or hilar adenopathy . Thoracic aorta is normal in caliber and enhancement. Esophagus is normal in caliber, without hiat al hernia. Bones and chest wall: No suspicious bony lesions. Ribs and thoracic spine appear intact throughout. Thyroid gland is unremarkable. No axillary or supraclavicular adenopathy. Abdomen: Visualized upper abdominal solid organs appear normal in the early arterial phase of enhanc ement. IMPRESSION: 1. No pulmonary embolism. 2. No consolidation or effusion. Dictated by: Elaine Bartlett M.D. on 09/16/2016 at 11:51 Approved by: Elaine Bartlett M.D. on 09/16/2016 at 12:03
[2016-09-16] MEDS ORDERED: PANT40TA2 PO (12:52)
[2016-09-16] MEDS ORDERED: LOV60 SUBQ (12:52)
[2016-09-16] MEDS ORDERED: GUAI10LI PO (13:07)
[2016-09-16 13:14] VITALS: BP 132/60; PULSE 71; RESP 20; O2SAT 100
== END 2016-09-16 13:05 | disposition home or self-care (01) ==
LOC: SED 09:06
DX: R04.2 Hemoptysis (principal); E07.9 Disorder of thyroid, unspecified; Z79.01 Long term (current) use of anticoagulants; Z87.891 Personal history of nicotine dependence
CPT/HCPCS: 36415; 71275; 80053; 81025; 83735; 84484; 85025; 85378; 85610; 86850; 93005; 96361; 96372; 96374; 99285; J1650; J2270; J7030; Q9967

== ENCOUNTER 2016-10-03 09:04 | Emergency (ER) | payer OTHER ==
[~2016-10-03] VITALS: Ht 157.5 cm; Wt 61.4 kg
[~2016-10-03 09:04] MED LIST changes: +CITA20TA11 PO; +GUAI10LI PO; -LORA0.5T PO; +LOV60 SUBQ; -OMEP20TA24 PO; +PANT40TA2 PO
--- NOTE | 2016-10-03 09:15 | ED.REPORT ---
HPI-General Illness Date of Service October 03, 2016 ED Provider: Karen You MD The patient is a 30 year old female who presents to the ED via EMS due to severe right-sided chest pain onset last night. Pt is 2 1/ 2 months, on warfarin for a PE that she had dx on july 17. She began to experience watery, vaginal bleeding requiring a pad every 45 minutes a week ago and her MD put her on control. Associated symptoms include SOB and RUQ abdominal pain. Her symptoms are similar to her first PE. Associated symptoms include nausea and dizziness. BP is 112/79 and pulse 112. Nursing Notes Stated Complaint: SOB Chief Complaint: Respiratory Distress Nursing Notes Reviewed: Yes Allergies: Coded Allergies: No Known Allergies (Verified , 08/25/16) Scheduled Citalopram (Citalopram) 20 Mg Tablet 20 MG PO DAILY Enoxaparin (Lovenox) 60 Mg/0.6 Ml Syringe 60 MG SUBQ DAILY Pantoprazole DR (Protonix) 40 Mg Tablet 40 MG PO DAILY Rivaroxaban (Xarelto) 15 Mg Tablet 15 MG PO BID BID for 21 days Rivaroxaban (Xarelto) 20 Mg Tablet 20 MG PO DAILY begin 20mg daily after completing 21 days of 15mg BID Warfarin Sodium (Warfarin Sodium) 7.5 Mg Tablet 7.5 MG PO every oth day Warfarin Sodium (Warfarin Sodium) 7.5 Mg Tablet 3.25 MG PO alter day w/7.5mg Scheduled PRN Guaifenesin/Codeine Phosphate (Guaifenesin-Codeine Syrup) 10 Ml Liquid 10 ML PO QID PRN PRN For Cough General Time Seen by MD: 09:14 Chief Complaint Chest pain Hx Obtained From: Patient Arrived By: Ambulance Sudden in Onset?: Yes Onset Occurred: 9 - 12 hours ago Symptom Duration: Since onset Location: : Abdomen: Chest Quality: Painful Severity: Current: Moderate Associated with: Reports: Abdominal pain, Chest pain, Difficulty breathing, Dizziness, Nausea Recent Healthcare: Recent doctor visit Similar Sx Previous: Yes Past Medical History 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 lipoma upper back Kidney stone removal Stent Family History Noncontributory Smoking History Former Smoker Social History Alcohol Use: Denies alcohol use Drug Use: Denies drug use Other Social History: Local resident Ambulatory Status Independent Review of Systems Full Review of Systems Respiratory: Reports: Shortness of breath Cardiovascular: Reports: Chest pain GI: Reports: Abdominal pain, Nausea, Vomiting Female: Reports: Vaginal bleeding - abnl Complete sys rev & neg: except as marked. Physical Exam Vital Signs Vital Signs Date Time Temp Pulse Resp B/P Pulse Ox O2 Delivery O2 Flow Rate FiO2 10/03/16 13:35 85 24 119/71 98 Room Air 10/03/16 12:59 74 16 112/62 100 Room Air 10/03/16 09:35 84 16 119/77 97 Room Air 10/03/16 09:25 36.6 90 14 132/85 97 Room Air Initial VS: Reviewed ENT: Mucous membranes moist, Conjunctiva normal Respiratory: Breath sounds normal, Clear to auscultation, No respiratory distress Abdomen / GI: Soft, Non-tender, No guarding, No rebound, No distention Back: No CVA tenderness Skin: Warm, Dry Neurologic: Alert, Oriented General/Constitutional: Awake, Alert, Cooperative Appearance / Presentation: Positive: Pale emotionally upset but able to cooperate diaphoretic all over Head / Eyes: Normocephalic, PERRL, EOMI Cardiovascular: No murmurs, No rubs Heart Rate / Rhythm: Positive: Tachycardia Tenderness/Guarding/Rebound: Positive: Tender LUQ..., Tender RUQ... tender underneath her breast, worse with respiration Lower Extremity / Pelvis / MS: Full range of motion, No edema Interpretation & Diagnostics Interpretation & Diagnostics: INR is 1, non-therapeutic ANGIOGRAPHY CT IMPRESSION: 1. No evidence of pulmonary embolism. 2. No acute consolidation. Dictated by: Cristian Spencer M.D. on 10/03/2016 at 10:43 Approved by: Cristian Spencer M.D. on 10/03/2016 at 10:47 Lab Results Interpretation Result Diagram: 10/03/16 0933 10/03/16 0933 Test 10/03/16 09:33 White Blood Count 6.9th/mm3 (3.8-10.1) Red Blood Count 4.94mil/mm3 (3.90-5.20) Hemoglobin 12.5g/dL (12.0-15.6) Hematocrit 38.4% (35.0-46.0) Mean Corpuscular Volume 77.7fL (81-100) Mean Corpuscular Hemoglobin 25.3pg (27.0-35.0) Mean Corpuscular Hemoglobin Concent 32.6% (32.0-37.0) Red Cell Distribution Width 16.1% (12.3-15.4) Platelet Count 377bil/L (150-400) Neutrophils (%) (Auto) 62.5% (40-74) Lymphocytes (%) (Auto) 27.5% (14-46) Monocytes (%) (Auto) 6.6% (4-12) Eosinophils (%) (Auto) 2.7% (0-5) Basophils (%) (Auto) 0.6% (0-3) Prothrombin Time 11.1sec (8.1-12.5) Prothromb Time International Ratio 1.04ratio Sodium Level 139mEq/L (134-144) Potassium Level 4.2mEq/L (3.5-5.2) Chloride Level 100mEq/L (97-108) Carbon Dioxide Level 21mmol/L (18-29) Blood Urea Nitrogen 11mg/dL (6-20) Creatinine 0.55mg/dL (0.57-1.00) Estimat Glomerular Filtration Rate 183mL/min (>59) Glucose Level 93mg/dL (60-99) Calcium Level 9.4mg/dL (8.5-10.1) Total Bilirubin 0.4mg/dL (0.0-1.2) Aspartate Amino Transf (AST/SGOT) 44U/L (0-50) Alanine Aminotransferase (ALT/SGPT) 53U/L (0-32) Alkaline Phosphatase 74U/L (25-150) Troponin T 0.010ug/L (0.0-0.011) Total Protein 8.1g/dL (6.4-8.4) Albumin 4.6g/dL (3.4-5.0) ECG Interpretation ECG Interpretation: similar to 09/16/16 QT 362 to 479 questionable significance Time: 09:39 Interpreted by: ED physician Normal ECG Interpretation: Normal sinus rhythm (rate 84) Re-Eval/Medical Decision Med Decision/Clinical Course Severe right-sided chest pain and right upper quadrant abdominal pain. On CT scan in July , Anteromedial right lung base opacity consistent with evolving pulmonary infarct was noted. She has had multiple prior imaging studies with no evidence of prior gallstones. CT angiogram today does not suggest recurrent pulmonary emboli. Her pain certainly could be explained by pleurisy related to the prior pulmonary emboli and pulmonary infarct. There is no evidence of acute infection. In reviewing prior CT scans, initial scan on to show bilateral pulmonary emboli. She is returned with recurrent chest pain hemoptysis etc. has had 3 additional repeat scans at this point on August 21 September 16 and again today. On all of these there has been no evidence of pulmonary emboli. She does have protein S deficiency and is followed by Dr. Spangler. Time of Eval: 10:13 Patient Status: Moderate relief, Pain improved Re-Evaluation/Progress Note: Pt rechecked. Her pain is under control. Time of Eval: 13:38 Re-Evaluation/Progress Note: trice to [facility] [phone] Will pre-auth xaralto, order sent to [facility] Consultation : Referral / Consult Name: CrysChrissLukaselsie Lam DO Call Returned at: 13:06 Enterprise Services Manager: Agrees with eval, Agrees with plan Note: Case discussed with Dr. Spangler, oncology. Counseled Regarding: Diagnosis, Lab results, Need for follow-up, When/why to return to ED Discharge & Departure Primary Impression: Pleuritic chest pain Additional Impressions: Pulmonary embolism, bilateral Protein S deficiency Disposition: Home Discharge Condition All VS Reviewed: Yes Condition: Stable Additional Instructions: Xaraleto 15mg BID for 15 days and then 20mg daily has been electronically sent to [facility]. I spoke with [facility] [phone] and they have authorized this medication as of TODAY. Your imaging and lab work are reassuring, there are no acute findings. Specifically, your prior pulmonary embolism is healing nicely and there are no new ones. I suspect that your symptoms are due to pleuritic pain. Your INR today is 1 despite taking Coumadin. With protein S deficiency and the previous pulmonary embolus you do need to be safely and continuously anticoagulated. Please start xaralto, first dose was in the emergency room, you need another dose this evening. Stop your Coumadin. I have discussed this with Dr. Spangler. You have a scheduled appointment with him and will need to keep this. For your pleuritic pain I would like you to try Naproxen 500mg twice a day. You can also use Percocet every 6 hrs for severe pain. Be careful with the narcotics , do not drink alcohol while taking narcotics. Follow up with your primary care physician as needed. Return to the Emergency Department for any new or worsening symptoms. I hope you feel better soon! Referrals: Yayo Antonio MD (PCP) Lukas Spangler DO (Family) Aly Attestation Portion of this note were transcribed by Yamileth Purcell. I, Dr. Karen You, personally performed the history, physical exam, and medical decision-making: I reviewed and confirmed the accuracy for the information in the transcribed note. Signed by: aly Lewis, 10/03/16 1200 copies to: Yayo Antonio MD; Lukas Spangler Shawna L MD October 03, 2016 09:15 Yamileth Purcell October 03, 2016 09:55
[2016-10-03 09:25] VITALS: BP 132/85; PULSE 90; RESP 14; O2SAT 97
[2016-10-03] MEDS ORDERED: 0.9% Sodium Chloride 1,000 ML IV ONE (09:26)
[2016-10-03] MEDS ORDERED: HYDROmorphone 1 mg/mL Inj IVPUSH ONE (09:30)
[2016-10-03 09:35] VITALS: BP 119/77; PULSE 84; RESP 16; O2SAT 97
[2016-10-03 09:36] LABS: BASOPHILS % (AUTO) 0.6 % (0-3); EOSINOPHILS % (AUTO) 2.7 % (0-5); MONOCYTES % (AUTO) 6.6 % (4-12); Mean Corpuscular Hemoglobin 25.3 pg (27.0-35.0); Mean Corpuscular Volume 77.7 fL (81-100); NEUTROPHILS % (AUTO) 62.5 % (40-74); Platelet Count 377 bil/L (150-400)
[2016-10-03] MEDS: HYDROmorphone 1 mg/mL Inj IVPUSH PRN ×2 (09:40→10:28)
[2016-10-03 09:52] LABS: INR 1.04 ratio
[2016-10-03] MEDS ORDERED: Ondansetron 2 mg/mL 2 mL Inj IVPUSH ONE (10:00)
[2016-10-03 10:04] LABS: TROPONIN T 0.01 ug/L (0.0-0.011)
--- NOTE | 2016-10-03 10:49 | DRSVH ---
PROCEDURE: CT ANGIO CHEST PULMONARY EMBOLISM ([id number]) INDICATIONS: Chest pain, tachycardia, TECHNIQUE: After the administration of intravenous contrast, 2 mm thick sections acquired from the pulmonary api elvin to the posterior costophrenic angles. 3-dimensional maximum intensity projection (MIP) coronal a nd sagittal reformats were then acquired through the thorax. For radiation dose reduction, the follo wing was used: automated exposure control, adjustment of mA and/or kV according to patient size. COMPARISON: [facility], CT, CT ANGIO CHEST PE, 09/16/2016, 11:37. FINDINGS: Image quality: Excellent. Pulmonary arteries: Pulmonary arteries are normal in size, and demonstrate no intraluminal filling d efects to suggest central pulmonary embolism. Lungs and pleura: Lungs are clear without consolidation. No pleural effusions or pneumothorax. Rony tral and peripheral airways are patent. Mediastinum: Heart size is normal, without pericardial effusion. No mediastinal or hilar adenopathy . Thoracic aorta is normal in caliber and enhancement. Esophagus is normal in caliber, without hiat al hernia. Bones and chest wall: No suspicious bony lesions. Ribs and thoracic spine appear intact throughout. Thyroid gland is partially visualized without discrete nodules identified. No axillary or supracla vicular adenopathy. Abdomen: Visualized upper abdominal solid organs appear normal in the early arterial phase of enhanc ement. IMPRESSION: 1. No evidence of pulmonary embolism. 2. No acute consolidation. Dictated by: Cristian Spencer M.D. on 10/03/2016 at 10:43 Approved by: Cristian Spencer M.D. on 10/03/2016 at 10:47
[2016-10-03 12:59] VITALS: BP 112/62; PULSE 74; RESP 16; O2SAT 100
[2016-10-03] MEDS ORDERED: RIVA15TA PO (13:25)
[2016-10-03] MEDS ORDERED: RIVA20TA PO (13:25)
[2016-10-03 13:35] VITALS: BP 119/71; PULSE 85; RESP 24; O2SAT 98
[2016-10-03] MEDS ORDERED: oxyCODONE-Acetamin 5-325 mg Tablet PO ONE (13:50)
[2016-10-03 14:29] VITALS: BP 119/71; PULSE 85; RESP 24; O2SAT 98
== END 2016-10-03 14:30 | disposition home or self-care (01) ==
LOC: SED 09:04 → EDBD 09:04 → SED 14:30
DX: R07.81 Pleurodynia (principal); I26.99 Other pulmonary embolism without acute cor pulmonale; D68.59 Other primary thrombophilia; R10.11 Right upper quadrant pain; F32.9 Major depressive disorder, single episode, unspecified; Z79.01 Long term (current) use of anticoagulants; Z95.5 Presence of coronary angioplasty implant and graft; Z87.891 Personal history of nicotine dependence
CPT/HCPCS: 36415; 71275; 80053; 84484; 85025; 85610; 86850; 93005; 96361; 96374; 96375; 96376; 99285; J1170; J1885; J2405; J7030; Q9967

== ENCOUNTER 2016-10-22 11:10 | Inpatient (IN) | payer OTHER ==
[~2016-10-22] VITALS: Ht 157.5 cm; Wt 63.2 kg
[2016-10-22] VITALS (12 sets, daily range): BP systolic 115–159; BP diastolic 67–99; PULSE 35–126; RESP 16–21; O2SAT 97–100
[~2016-10-22 11:10] MED LIST changes: +RIVA15TA PO; +RIVA20TA PO
[2016-10-22] MEDS ORDERED: Succinylcholine Chloride 20 mg/mL 5 mL Inj ONE (11:29)
[2016-10-22] MEDS ORDERED: Ondansetron 2 mg/mL 2 mL Inj ONE (11:29)
[2016-10-22] MEDS ORDERED: fentaNYL-PF 50 mCg/mL 2 mL Inj ONE (11:29)
--- NOTE | 2016-10-22 11:32 | ED.REPORT ---
HPI-Dyspnea / Wheezing Date of Service Oct 22, 2016 ED Provider: Dr. You Pt is a 30 y/o female anticoagulated on Xarelto w/ a hx of recent PE, protein S deficiency, presenting to the ED c/o cough onset 2 days ago. The patient was seen on July 17, 2016 for chest pain and dyspnea 3 weeks after a and was found to have bilateral pulmonary emboli. On October 03 she was at that time 3 months and presented to the ED for pleuritic chest pain and a repeat CT angiogram was performed showing no PE although it did show an area of evolving pulmonary infarct thought to be related to her initial PE. She c/o associated hemoptysis, vomiting after coughing, SOB, musculoskeletal and pleuritic chest pain, orthostatic dizziness, and bright red rectal bleeding. She denies vaginal bleeding, fever, chills. The patient was initially prescribed Naprosyn but this was unable to be filled so she has been taking 800 mg Ibuprofen BID. Nursing Notes Stated Complaint: SHORT OF BREATH/COUGHING UP BLOOD/BLOOD IN STOOL Chief Complaint: Respiratory Distress Nursing Notes Reviewed: Yes Allergies: Coded Allergies: No Known Allergies (Verified , 08/25/16) Scheduled Citalopram (Citalopram) 20 Mg Tablet 20 MG PO DAILY Rivaroxaban (Xarelto) 20 Mg Tablet 20 MG PO DAILY begin 20mg daily after completing 21 days of 15mg BID Scheduled PRN Ibuprofen (Ibuprofen) 800 Mg Tablet 800 MG PO BID PRN PRN For Pain General Time Seen by MD: 11:31 Chief Complaint Cough Hx Obtained From: Patient Arrived By: Walk-in Sudden in Onset?: No Onset Occurred: 2 days ago Symptom Duration: Since onset Location: : Chest left: Chest right Quality: Painful, Pleuritic Severity: Current: Moderate Severity: Maximum: Moderate Exacerbated by: Activity, Cough, Deep breath Recent Healthcare: Recent doctor visit, Recent testing Similar Sx Previous: Yes Past Medical History Past Medical History Notes: Director Of Personnel: Dr. Spangler Past Medical History Bilateral PE after July 2016, on Xarelto Protein S deficiency while on Coumadin Hx of kidney stones UTI Depression and anxiety Past Surgical History x3 Exc. lipoma upper back Kidney stone removal Stent Family History Noncontributory Smoking History Former Smoker Social History Alcohol Use: Denies alcohol use Drug Use: Denies drug use Other Social History: Local resident Ambulatory Status Independent Review of Systems Constitutional: Denies: Chills, Fever Respiratory: Reports: Hemoptysis, Non-productive cough, Pleuritic pain, Shortness of breath Cardiovascular: Reports: Chest pain, Dyspnea on exertion Complete sys rev & neg: except as marked. GI: Reports: Hematochezia, Nausea, Vomiting Female: Denies: Vaginal bleeding - abnl Physical Exam Initial Vital Signs Vital Signs (First) Date Time Temp Pulse Resp B/P Pulse Ox O2 Delivery O2 Flow Rate FiO2 10/22/16 11:20 36.4 126 18 159/99 99 Room Air Initial VS: Reviewed, Vital signs abnormal Head / Eyes: Atraumatic, Normocephalic, PERRL ENT: Mucous membranes moist, Conjunctiva normal, No scleral icterus Abdomen / GI: Soft, Non-tender, No guarding, No rebound, No distention Skin: Warm, Dry, No cyanosis Neurologic: Alert, Oriented, Nonfocal Psychiatric: Mood/affect normal, Behavior normal, Normal thought content General/Constitutional: Awake, Alert, No acute distress, Cooperative, Not toxic appearing Behavior: Positive: Anxious Neck: Atraumatic, Supple, No meningismus, Full range of motion Respiratory / Chest: Breath sounds NL, Breath sounds = bilat, No respiratory distress, No rales, No rhonchi, No wheezing, No retractions, No stridor Reproducible chest tenderness to palpation Cardiovascular: Regular rhythm, Heart sounds NL, No gallop, No murmurs, No rubs , Cap refill not delayed, Peripheral circulation NL Heart Rate / Rhythm: Positive: Tachycardia Rectum / Perineum: Atraumatic, No fecal impaction Bloody mucous markedly guaiac positive Interpretation & Diagnostics Lab Results Interpretation Result Diagram: 10/22/16 1510 10/22/16 1148 Test 10/22/16 11:48 White Blood Count 6.6th/mm3 (3.8-10.1) Red Blood Count 4.55mil/mm3 (3.90-5.20) Mean Corpuscular Volume 78.7fL (81-100) Mean Corpuscular Hemoglobin 25.5pg (27.0-35.0) Mean Corpuscular Hemoglobin Concent 32.4% (32.0-37.0) Red Cell Distribution Width 14.9% (12.3-15.4) Platelet Count 341bil/L (150-400) Neutrophils (%) (Auto) 67.8% (40-74) Lymphocytes (%) (Auto) 24.6% (14-46) Monocytes (%) (Auto) 6.2% (4-12) Eosinophils (%) (Auto) 0.6% (0-5) Basophils (%) (Auto) 0.6% (0-3) Prothrombin Time 10.6sec (8.1-12.5) Prothromb Time International Ratio 0.99ratio Sodium Level 142mEq/L (134-144) Potassium Level 3.4mEq/L (3.5-5.2) Chloride Level 104mEq/L (97-108) Carbon Dioxide Level 23mmol/L (18-29) Blood Urea Nitrogen 11mg/dL (6-20) Creatinine 0.54mg/dL (0.57-1.00) Estimat Glomerular Filtration Rate 187mL/min (>59) Glucose Level 105mg/dL (60-99) Calcium Level 9.1mg/dL (8.5-10.1) Total Bilirubin 0.3mg/dL (0.0-1.2) Aspartate Amino Transf (AST/SGOT) 27U/L (0-50) Alanine Aminotransferase (ALT/SGPT) 32U/L (0-32) Alkaline Phosphatase 77U/L (25-150) Total Protein 7.9g/dL (6.4-8.4) Albumin 4.5g/dL (3.4-5.0) ECG Interpretation Time: 13:00 Interpreted by: ED physician Normal ECG Interpretation: Normal ECG w/ rate of... (88), Normal rate, Normal sinus rhythm, No acute ischemic changes, Normal QRS, Normal axis, Normal intervals, Adequate tracing X-Ray Chest Interpretation Chest Xray Interpretation: IMPRESSION: Negative chest. No acute cardiopulmonary process is evident. Dictated by: Paramjit Hebert M.D. on 10/22/2016 at 11:46 Approved by: Paramjit Hebert M.D. on 10/22/2016 at 11:47 View: Portable, 1 view Interpretation / Wet Read by: Interpret - Radiologist Re-Eval/Medical Decision Med Decision/Clinical Course 30-year-old woman 3 months history of protein S deficiency pulmonary embolism with pulmonary infarct on the right side and pleuritic chest pain. Currently on several toe. Today was complaining of coughing with some hemoptysis severe coughing episode and then began having bloody emesis she is now having maroon colored stool with significant decrease in hematocrit over 2 hours she has been in the emergency department with moderate normal saline fluid resuscitation. She has been on scheduled ibuprofen in the last couple of weeks due to the pleuritic chest pain secondary to the pulmonary embolism. This could certainly be a Padmini-Williamson tear from the severity of coughing also be ulceration secondary to the nonsteroidals. Hemodynamically stable at this point for units of blood have been ordered she has responded nicely to the initial normal saline. She has been consulted will go to the PCU. Has had a Protonix bolus as well as currently in a Protonix drip. sHe remains hemodynamically stable at time of transfer to the floor Re-Evaluation/Progress : Time of Eval: 14:03 Re-Evaluation/Progress Note: Pt rechecked. Informed pt of need for admission due to GI bleed. Pt understands and agrees with plan for admission. All questions addressed. Consultation #1: Referral / Consult Name: Ariel Callahan MD Call Returned at: 14:02 Harness Maker: Agrees with eval, Agrees with plan Note: Consulted GI. Plan to scope shortly with anesthesia. Consultation #2: Referral / Consult Name: Andie Mares DO Consulted With: Hospitalist Call Returned at: 14:30 Harness Maker: Will see patient, Agrees with eval, Agrees with plan, Accepts admit Counseled Regarding: Diagnosis, Lab results, Need for admission Discharge & Departure Impression: Primary Impression: GI bleed GI bleed type/associated pathology: unspecified gastrointestinal hemorrhage type Qualified Code: K92.2 - Gastrointestinal hemorrhage, unspecified Additional Impressions: Anticoagulated Protein S deficiency Pulmonary embolism and infarction Disposition: ADMITTED TO HOSPITAL Discharge Condition All VS Reviewed: Yes Condition: Stable Referrals: Yayo Antonio MD (PCP) Lukas Spangler DO (Family) Crit Care Except Billable Proc Time Spent: 30-74 minutes Services Performed: Patient management by me, Time spent at bedside, Reviewing test results, Reviewing imaging, Discussing patient care, Documentation in record Scribe Attestation Portions of this note were transcribed by Braydon Momin. Dr. Kenyatta Urban personally performed the history, physical exam and medical decision-making; I reviewed and confirmed the accuracy of the information in the transcribed note. Signed by Arthur Bartlett, 10/22/16 - 1199 copies to: Yayo Antonio MD; Lukas Spangler Shawna L MD Oct 22, 2016 11:31 BRAYDON MOMIN Oct 22, 2016 11:49 Portions of this note were transcribed by Braydon Momin. Dr. Kenyatta Urban personally performed the history, physical exam and medical decision-making; I reviewed and confirmed the accuracy of the information in the transcribed note. Signed by Arthur Bartlett, 10/22/16 - 1199 copies to: Yayo Antonio MD; Lukas Spangler Shawna L MD Oct 22, 2016 11:31 BRAYDON MOMIN Oct 22, 2016 11:49
[2016-10-22] MEDS ORDERED: 0.9% Sodium Chloride 1,000 ML IV ONE ×2 (12:09→13:55)
[2016-10-22] MEDS ORDERED: Pantoprazole 4 mg/mL 10 mL Inj IVPUSH ONE (12:10)
[2016-10-22] MEDS ORDERED: Pantoprazole Inj 80 MG, Pharmacy To Mix 1 EA in 0.9% Sodium Chloride 80 ML IV ONE ×2 (12:10)
[2016-10-22 12:25] LABS: BASOPHILS % (AUTO) 0.6 % (0-3); EOSINOPHILS % (AUTO) 0.6 % (0-5); MONOCYTES % (AUTO) 6.2 % (4-12); Mean Corpuscular Hemoglobin 25.5 pg (27.0-35.0); Mean Corpuscular Volume 78.7 fL (81-100); NEUTROPHILS % (AUTO) 67.8 % (40-74); Platelet Count 341 bil/L (150-400)
[2016-10-22 12:37] LABS: INR 0.99 ratio
--- NOTE | 2016-10-22 12:48 | DRSVH ---
PROCEDURE: X-RAY CHEST ONE VIEW, PORTABLE ([id number]) INDICATIONS: hemoptosis TECHNIQUE: One view of the chest was acquired. COMPARISON: [facility], CT, CT ANGIO CHEST PE, 10/03/2016, 10:39. [facility] , CR, XR CHEST 2VW, 08/09/2016, 19:01. FINDINGS: Surgical changes and devices: None. Lungs and pleura: No pleural effusions or pneumothorax. Lungs are clear. Mediastinum: Mediastinal contours appear normal. Heart size is normal. Bones and chest wall: No suspicious bony lesions. Overlying soft tissues appear unremarkable. IMPRESSION: Negative chest. No acute cardiopulmonary process is evident. Dictated by: Paramjit Hebert M.D. on 10/22/2016 at 11:46 Approved by: Paramjit Hebert M.D. on 10/22/2016 at 11:47
[2016-10-22] MEDS ORDERED: HYDROmorphone 1 mg/mL Inj IVPUSH PRN (13:55)
[2016-10-22] MEDS ORDERED: HYDROmorphone 1 mg/mL Inj IVPUSH ONE (13:55)
[2016-10-22] MEDS ORDERED: IBUP800T28 PO (14:45)
[2016-10-22] MEDS ORDERED: Polyethylene Glycol (PEG) 17 Gm Powder PO PRN (14:55)
[2016-10-22] MEDS ORDERED: Alum-Mag Hydrox-Simeth 30 mL Suspension PO PRN (14:55)
--- NOTE | 2016-10-22 16:08 | PCM.HPMED ---
Subjective Date of Service Oct 22, 2016 Primary Provider: Admitting Physician: Andie Mares DO Primary Care Physician: Yayo Antonio MD Attending Physician: Andie Mares DO Chief Complaint: Hematemesis History of Present Illness: 30-year-old female with a history of bilateral pulmonary embolism in July 2016 , recent 4 months ago, and undergoing investigation for protein S deficiency on Xarelto presents to the emergency department following 3 days of nausea and vomiting with hematemesis and hematochezia. Patient states that she had a cough and sore throat that started 3 days ago with nonradiating, substernal chest pain following coughing fits. Also complains of right upper quadrant pain. She began taking 800 mg of ibuprofen twice a day to control the pain and 2 days ago developed esme hematemesis 4 that followed her coughing. She continued to take ibuprofen and yesterday began having hematochezia with bright red blood mixed with partially formed stool and diarrhea. Patient also complains about gingival bleeding after brushing her teeth. Patient denies recent alcohol intake and only has 1-pack-year history of smoking. Patient initially presented in July with chest pain and respiratory distress and was found to have bilateral pulmonary embolisms and was placed on warfarin. She followed up with Dr. Spangler of hematology and underwent evaluation with a reported low protein S, although it was noted that this was while on Coumadin. Plans were made to follow this up in December when off warfarin. In the beginning of September the patient showed up with similar symptoms including hematochezia/hematemesis to [facility] ED but at that time CT was negative for pulmonary embolism and patient was sent home. She presented again two weeks later with similar complaints, and CT was again negative for PE, however it was felt that patient should be switched from warfarin to Xarelto. Review of Systems: Complete review of systems performed;. Pertinent Positives and negatives per history of present illness, all other systems reviewed and are negative. Allergies Coded Allergies: No Known Allergies (Verified , 08/25/16) Home Medications Citalopram (Citalopram) 20 Mg Tablet 20 MG PO DAILY Enoxaparin (Lovenox) 60 Mg/0.6 Ml Syringe 60 MG SUBQ DAILY Pantoprazole DR (Protonix) 40 Mg Tablet 40 MG PO DAILY Rivaroxaban (Xarelto) 15 Mg Tablet 15 MG PO BID BID for 21 days Rivaroxaban (Xarelto) 20 Mg Tablet 20 MG PO DAILY begin 20mg daily after completing 21 days of 15mg BID PMH Bilateral pulmonary embolisms July 2016 Probable Protein S deficiency Recurrent Kidney stones UTI Depression and anxiety Surgical History 3 Excision of lipoma Kidney stone removal with stent Family History 3 cousins have all been diagnosed with protein S deficiency Social History Hx Alcohol Use: Yes Alcoholic Drinks Per Day: VERY INFREQUENT ETOH USE DUE TO MEDS, WINE Hx Substance Use: No Hx Tobacco Use: No Smoking Status: Former Smoker Living Arrangement: with Family Exam Vital Signs Vital Sign - Last Date Time Temp Pulse Resp B/P Pulse Ox O2 Delivery O2 Flow Rate FiO2 10/22/16 15:41 75 10/22/16 14:40 18 129/67 97 Room Air 10/22/16 11:20 36.4 Exam General: Anxious age-appropriate female HEENT: Conjunctiva without pallor, PERRLA, EOMI Lymph: No lymphadenopathy Cardio: Regular rate and rhythm, no murmurs rubs or gallops Respiratory: CTA bilaterally with no wheezing excellent abdomen: Mild right upper quadrant and epigastric tenderness, otherwise benign, positive bowel sounds, no distention Extremities: Pulses intact throughout, no edema Skin: No rashes, numerous tattoos Psych: Anxious Neuro: CN II through XII intact, sensation intact throughout Lab and Diagnostics Result Diagram: 10/22/16 1510 10/22/16 1148 X-Rays, CTs and MRIs Chest x-ray IMPRESSION: Negative chest. No acute cardiopulmonary process is evident. Dictated by: Paramjit Hebert M.D. on 10/22/2016 at 11:46 12-lead ECG Normal sinus rhythm with a rate of 88, no concerning ST changes, although V4 through 6 Minor T-wave abnormality not reciprocated elsewhere; QTC 442 Assessment & Plan 30-year-old female with a recent history of bilateral pulmonary embolisms and suspected protein S deficiency who presents with hematochezia and hematemesis while on several to. Patient last took several to yesterday evening (10/22/16) Acute GI bleed with blood loss anemia second to NSAID use; present admission; ongoing -Patient presents with a positive Hemoccult, downtrending H&H currently at 9.9; Ibuprofen 800mg BID -Patient was typed and crossed in the ED and given 1 L saline -Additional liter of saline was given an IVF at 100 mL -Dr. Callahan consulted from the ED and patient will be taken for EGD tonight -Repeat H&H every 2 until stable -Absolutely no NSAIDs and patient to be kept nothing by mouth until after procedure clearance by Dr. Callahan -Consent for transfusion Subacute Right upper quadrant pain with nausea/vomiting; present admission; ongoing -Patient complains of recurrent right upper quadrant pain; LFTs unremarkable; nausea is likely due to her acute GI bleed -Prior evaluation a CT did not show gallstones -Ultrasound right upper quadrant -Zofran for nausea -Recheck CMP tomorrow Suspected Protein S deficiency -Patient has not completed a full workup to confirm protein S deficiency but presents on Xarelto -Hold home Xarelto -SCDs Chest pain, appears subacute; present admission; ongoing -Patient has had repeated episodes of chest pain going back to July; questionable if due to anxiety -Recent diagnoses include costochondritis and bilateral PE -Likely component of recent vomiting -EKG unremarkable; will check 1 trop but do not plan on trending as she is a low risk Depression/Anxiety -Restart home meds when not NPO -Ativan for agitation/anxiety Disposition: Patient was admitted to inpatient status with expected length of stay greater than 2 midnights due to severity of presentation, duration of treatment, and risk of adverse events. Pain Evaluation: Adequate Pain Control Resuscitation Status: CPR: Attempt Resuscitation Time spent 60 minutes Attending Statement The patient was seen and examined together with Dr. Marinelli on 10/22/16 and I have added additional information to the note above. Syed Marinelli DO Oct 22, 2016 16:08 Andie Mares DO Oct 24, 2016 17:54
[2016-10-22] MEDS: 0.9% Sodium Chloride 1,000 ML IV SCH ×2 (16:28→19:12)
--- NOTE | 2016-10-22 16:30 | NUR ---
Admit Pt admitted to [facility] from ER at around 1515ish. A&Ox3, WORKMAN, walked with steady gait from stretcher to bed. C/O pain 6/10 sternal chest pain, worse with breathing in and a cough. Vitals stable, Protonix hung in ER, NS started at 100mls./hr. MD's rounding. Cellphone, Purse, and other belonging brought up to room from ER
[2016-10-22] MEDS ORDERED: MetoCLOpramide 5 mg/mL 2 mL Inj IVPUSH PRN (17:25)
[2016-10-22] MEDS ORDERED: Pantoprazole Inj 80 MG, Pharmacy To Mix 1 EA in 0.9% Sodium Chloride 80 ML IV SCH ×2 (17:25)
--- NOTE | 2016-10-22 19:26 | DRSVH ---
PROCEDURE: US ABDOMEN ([id number]) INDICATIONS: RUQ pain TECHNIQUE: Real-time scanning was performed of the abdominal and retroperitoneal organs, with image documentatio n. COMPARISON: None. FINDINGS: Liver: Liver is normal in size and homogeneous in echotexture. Gallbladder: Gallbladder is sonographically normal. No gallstones. No gallbladder wall thickening. N o pericholecystic fluid. No sonographic Ahmadi sign. Biliary ducts: Intrahepatic bile ducts are non-dilated. Extrahepatic bile duct caliber measures 2.7 mm. Normal is 6-7 mm or less in diameter, or 10 mm or less post-cholecystectomy. Pancreas: Visualized portions of the pancreas are sonographically normal. Spleen: Spleen is normal in size and homogeneous in echotexture. Kidneys: Kidneys are normal in size and echotexture. Right kidney measures 10.4 cm long; left kidne y measures 10.9 cm long. No hydronephrosis. 3 mm nonobstructing left renal stone noted. No solid mas ses. Aorta: Visualized aorta is normal in caliber at less than 3 cm. Iliacs: Proximal common iliac arteries are normal in caliber at less than 2.5 cm. IVC: Intrahepatic inferior vena cava is patent. Miscellaneous: No free abdominal fluid. IMPRESSION: 1. 3 mm nonobstructing left renal stone. 2. Otherwise, normal abdominal sonogram. Dictated by: Marita De Jesus MD, PhD on 10/22/2016 at 19:23 Approved by: Marita De Jesus MD, PhD on 10/22/2016 at 19:25
[2016-10-22] MEDS ORDERED: PEG/Electrolytes 4,000 mL Solution PO ONE (20:35)
--- NOTE | 2016-10-22 22:53 | CONS ---
[address] [address] CONSULTATION REPORT PATIENT: DANIEL BLAIR : 1985 MR#: [id number] ADMIT: 10/22/2016 JOB ID: [id number] DATE OF SERVICE: 10/22/2016 REQUESTING PROVIDER: Karen You. REASON FOR CONSULTATION: Suspected upper GI bleeding. HISTORY OF PRESENT ILLNESS: This is a 30-year-old female about four months and about three months out from the diagnosis of protein S deficiency in the context of DVT pulmonary embolus. She initially was on Coumadin and Lovenox but could not get INR squared away. She has been on Xarelto. She has been taking 800 mg of ibuprofen twice a day for chest pain related to the pulmonary embolus since July. She has not had any prior GI bleeding but started to experience some coughing yesterday and within the tail end of each cough she would have an emesis that was bilious with some streaks of red blood. She then started to have symptoms of bloody maroon stool. No esme melena. She has had some upper abdominal cramping. In the ED, the initial hemoglobin 11.6, with some hydration it dropped to 9.7, stable this afternoon at 9.9. Her last emesis and bowel movement was this morning. Her last dose of Xarelto was yesterday evening around 5 o'clock. ALLERGIES: No known drug allergies. MEDICATIONS: 1. Ibuprofen 800 mg b.i.d. 2. Xarelto. 3. Citalopram. PAST MEDICAL HISTORY: Protein S deficiency, kidney stones, UTI, depression, anxiety, bilateral pulmonary emboli july 2016, section x3, lipoma resection, kidney stone removal and stenting. FAMILY HISTORY: Protein S deficiency is present in the family. SOCIAL HISTORY: Infrequent alcohol. Former smoker. Her baby boy is now about 4 months old and healthy. Mom was at the bedside. REVIEW OF SYSTEMS: Chronic chest discomfort ever since the pulmonary embolus diagnosis. No real significant symptoms of reflux. The cough symptoms are a little unusual and not part of her pulmonary emboli symptoms, at least until recently. The patient does not recall using any form of proton pump inhibitor. Review is otherwise as per HPI. PHYSICAL EXAMINATION: Blood pressure 127/83, pulse 59, afebrile at 36.9, 100% on room air. The patient was in no distress. Alert, oriented, appropriate, cooperative, conversational. Multiple tattoos. Good air entry. Unlabored breathing. Not tachycardic. No lower extremity edema. Abdomen is soft, nondistended. No guarding. LABORATORIES: Sodium 142, potassium 3.4, chloride 104, bicarb 23, BUN 11, creatinine 0.54, glucose 105, calcium 9.1. Liver tests normal. Albumin 4.5, INR is 0.99, platelets 341, white count 6.6, normal left shift. IMAGING: Chest x-ray is negative. ASSESSMENT AND RECOMMENDATIONS: A 30-year-old female about four months and three months out from a new diagnosis of protein S deficiency in the face of bilateral pulmonary emboli. She has been on anticoagulation but, additionally, has been taking ibuprofen high-dose for chest discomfort related to her pulmonary emboli. The presence of red blood from below and streaky hematemesis are concerning for hemorrhagic peptic ulcer disease. I think the possibility of a Padmini-Williamson is definitely there, but perhaps a little less likely. All of that said, the differential remains open and upper endoscopy seems well indicated. The risks of the procedure were reviewed with the patient and her mom. She wishes to proceed. She has appropriately thus far been commenced on a PPI drip. Further recommendations will follow her upper endoscopy. At this point, it appears as though the bleeding has at least temporarily spontaneously halted. Based on the complexity of her underlying medical diagnoses, I have requested anesthesia support for her case.
[2016-10-23] VITALS (16 sets, daily range): BP systolic 107–147; BP diastolic 63–86; PULSE 37–60; RESP 14–20; O2SAT 97–100
--- NOTE | 2016-10-23 | ENDO ---
[address] [address] ENDOSCOPY PROCEDURE PATIENT: DANIEL BLAIR : 1985 MR#: [id number] ADMIT: 10/22/2016 JOB ID: [id number] DATE OF PROCEDURE: 10/22/2016 PROCEDURE: Esophagogastroduodenoscopy. INDICATIONS: A 30-year-old female with GI bleeding. EQUIPMENT: [id number]. SEDATION: Monitored anesthesia as provided by Dr. Reynold Montano. COMPLICATIONS: None identified. PROCEDURE INFORMATION: After the risks and benefits were explained, written and verbal informed consent was obtained. The patient was brought into the endoscopy suite and placed into the left lateral decubitus position. Sedation was achieved as above. Scope introduced into the mouth and advanced to the second portion of the duodenum. The scope was slowly withdrawn. Retroflexed views were accomplished in the stomach. The stomach was decompressed. The scope removed from the patient who tolerated the procedure reasonably well. FINDINGS: 1. Duodenum: No sign of new or old blood. No sign of ulcer, mass lesion or bleeding source. 2. Stomach: No new or old blood. The mucosa was a little friable with suction fannie from the endoscope, but this was a function of the Xarelto. I did not see any ulcerations. No mass lesions. No outlet obstruction. No Padmini-Williamson. No Dieulafoy's. Retroflexed views disclosed a small sliding hiatal hernia. There was bile-stained gastric fluid, small volume remaining . 3. Esophagus: The squamocolumnar junction correlated with the top of the gastric folds. No acute erosive changes. No strictures. No mass lesions. Again, no Padmini-Williamson. No pathology in the esophagus. ENDOSCOPIC DIAGNOSES: 1. Small hiatal hernia. 2. Minimal gastropathy. 3. No sign of acute active upper gastrointestinal bleed. RECOMMENDATIONS: 1. The patient can be converted back over to oral proton pump inhibitor. 2. Continue to hold Xarelto for now. 3. Bowel prep is offered and colonoscopy is pursued for tomorrow with anesthesia. Fortunately, at the moment there is no sign of any ongoing active hemorrhage.
[2016-10-23] MEDS: 0.9% Sodium Chloride 1,000 ML IV SCH ×3 (00:07→20:51)
[2016-10-23] MEDS: Ondansetron 2 mg/mL 2 mL Inj IVPUSH PRN ×3 (01:44→17:15)
[2016-10-23 05:08] LABS: BASOPHILS % (AUTO) 0.7 % (0-3); EOSINOPHILS % (AUTO) 1.8 % (0-5); MONOCYTES % (AUTO) 5.9 % (4-12); Mean Corpuscular Hemoglobin 24.8 pg (27.0-35.0); Mean Corpuscular Volume 80.5 fL (81-100); NEUTROPHILS % (AUTO) 48.1 % (40-74); Platelet Count 246 bil/L (150-400)
--- NOTE | 2016-10-23 05:52 | NUR ---
Tele/Bowel Prep/Anxiety Bowel prep for AM Colonoscopy, NPO after 1000., experiencing anxiety, Gave PO ativan 1 Mg PO , Zofran 4 Mg, Room Air , A&O x3 Tele Sr- S-Edvin
[2016-10-23 05:54] LABS: Magnesium 1.7 mg/dL (1.6-2.6); Phosphorus 3.3 mg/dL (2.5-4.9); TROPONIN T 0.01 ug/L (0.0-0.011)
[2016-10-23] MEDS ORDERED: PEG/Electrolytes 4,000 mL Solution PO ONE (06:00)
[2016-10-23] MEDS: Potassium Chloride 20 mEq SR Tablet PO SCH (09:21)
[2016-10-23] MEDS: HYDROcodone-APAP 5-325 mg Tablet PO PRN ×3 (09:22→21:52)
[2016-10-23] MEDS ORDERED: Propofol 10,000 mCg/mL 20 mL Inj ONE (11:29)
--- NOTE | 2016-10-23 11:35 | NUR ---
Case Management: Clarification of patient status: inpatient from 10/22/16 per MD order. Suzanna George RN
--- NOTE | 2016-10-23 14:25 | PCM.PNMED ---
Subjective Date of Service Oct 23, 2016 Subjective Patient quite anxious and tearful upon evaluation today. States that she did not get a good nights sleep last night secondary to her bowel prep and is nervous about her upcoming endoscopy procedure. Otherwise states that she is well, reports continued minor abdominal pain. Denies nausea, vomiting, or continued melena. No significant overnight events beyond expected GI distress from bowel prep. Comprehensive ROS negative except as listed above. Exam Vital Signs Vital Sign - Last Date Time Temp Pulse Resp B/P Pulse Ox O2 Delivery O2 Flow Rate FiO2 10/23/16 14:02 36.4 42 18 146/80 100 10/23/16 09:39 Room Air 10/22/16 19:18 4 Intake and Output 10/22/16 10/22/16 10/23/16 Cumulative From/Thru 15:00 23:00 07:00 10/22/16 11:20 - 10/23/16 06:31 Intake Total 100 ml 3718 ml 3818 ml Output Total 4 ml 4 ml Balance 100 ml 3714 ml 3814 ml Intake Oral 2300 ml 2300 ml IV Total 100 ml 1418 ml 1518 ml Output Stool Total 4 ml 4 ml Exam Gen: A/O x3 anxious tearful young woman in moderate acute distress secondary to anxiety Neck: Supple, Full ROM, no JVD HEENT: PERRL, EOMI, no scleral icterus, no conjunctival pallor, no visible blood in mouth, eyes significantly swollen likely secondary to crying CV: RRR, no murmurs rubs or gallops Resp: lungs CTA BL, no wheezing rales or rhonchi Abd: soft, mild diffuse tenderness to palpation, +BS 4Q, no rebound or guarding Extr: No cyanosis clubbing or edema Neuro: CN 2-12 grossly intact, no focal neurologic deficit Psych: patient tearful and anxious about upcoming procedure. IVs and Medications IV Fluids NS @ 100 ml hr Medications Reviewed: Medications were reviewed in detail Lab and Diagnostics Item Value Date Time Red Blood Count 3.59 mil/mm3 L 10/23/16 0450 Mean Corpuscular Volume 80.5 fL L 10/23/16 0450 Mean Corpuscular Hemoglobin 24.8 pg L 10/23/16 0450 Mean Corpuscular Hemoglobin Concent 30.8 % L 10/23/16 0450 Red Cell Distribution Width 14.7 % 6/8/17 0450 Neutrophils (%) (Auto) 48.1 % 10/23/16449 Lymphocytes (%) (Auto) 43.3 % 10/23/16449 Monocytes (%) (Auto) 5.9 % 10/23/16449 Eosinophils (%) (Auto) 1.8 % 10/23/16449 Basophils (%) (Auto) 0.7 % 10/23/16449 Estimat Glomerular Filtration Rate 210 mL/min 10/23/16449 Calcium Level 8.2 mg/dL L 10/23/16449 Phosphorus Level 3.3 mg/dL 10/23/16449 Magnesium Level 1.7 mg/dL 10/23/16449 Total Bilirubin 0.3 mg/dL 10/23/16449 Aspartate Amino Transf (AST/SGOT) 18 U/L 10/23/16449 Alanine Aminotransferase (ALT/SGPT) 22 U/L 10/23/16449 Alkaline Phosphatase 60 U/L 10/23/16449 Troponin T 0.010 ug/L 10/23/16449 Total Protein 6.0 g/dL L 10/23/16449 Albumin 3.6 g/dL 10/23/16449 Procalcitonin 0.02 ng/mL 10/23/16449 Thyroid Stimulating Hormone (TSH) 0.595 uIU/mL 10/23/16449 Result Diagram: 10/23/1644910/23/16449 X-Rays, CTs and MRIs Chest x-ray IMPRESSION: Negative chest. No acute cardiopulmonary process is evident. Dictated by: Paramjit Hebert M.D. on 10/22/2016 at 11:46 12-lead ECG Normal sinus rhythm with a rate of 88, no concerning ST changes, although V4 through 6 Minor T-wave abnormality not reciprocated elsewhere; QTC 442 Assessment & Plan 30-year-old female with a recent history of bilateral pulmonary embolisms and suspected protein S deficiency who presents with hematochezia and hematemesis while on Xarelto. Patient last took Xarelto on the evening of (10/22/16). Upper endoscopy did not reveal active bleed or other source of declining H/H Acute GI bleed with blood loss anemia second to NSAID use; present admission; ongoing -Patient presents with a positive Hemoccult, downtrending H&H 9.9 on admission with continued downward trend; Ibuprofen 800mg BID taken habitually for pleuritic pain from PE -Patient was typed and crossed in the ED and given 1 L saline -Additional liter of saline was given an IVF at 100 mL -Dr. Callahan consulted from the ED and patient will be taken for EGD tonight -Absolutely no NSAIDs and patient to be kept nothing by mouth until after procedure clearance by Dr. Callahan -Upper endoscopy 10/22/16 without identification of the source of bleeding -Will undergo colonoscopy -Consent for transfusion Subacute Right upper quadrant pain with nausea/vomiting; present admission; ongoing -Patient complains of recurrent right upper quadrant pain; LFTs unremarkable; nausea is likely due to her acute GI bleed -Prior evaluation a CT did not show gallstones -Ultrasound right upper quadrant -Zofran for nausea -Follow CMP Suspected Protein S deficiency -Patient has not completed a full workup to confirm protein S deficiency but presents on Xarelto -Hold home Xarelto -SCDs Chest pain, appears subacute; present admission; ongoing -Patient has had repeated episodes of chest pain going back to July; questionable if due to anxiety -Recent diagnoses include costochondritis and bilateral PE -Likely component of recent vomiting -EKG unremarkable; will check 1 trop but do not plan on trending as she is a low risk Depression/Anxiety -Restart home meds when not NPO -Ativan for agitation/anxiety Disposition: Disposition dependant upon results from colonoscopy and whether source of bleed is identified and means of correction available in house; likely 1-3 more days depending upon H/H trend and diagnostic evaluation. Post colonoscopy today the patient experienced bradycardia with some hypertension. The patient looked stable and did not appear to be in any acute distress. The patient's IV fluids were stopped and she was started on a full liquid diet. Is on as the patient is able to tolerate a full diet tomorrow and her bradycardia resolves she should be ready for discharge home. Pain Evaluation: Adequate Pain Control VTE Prophylaxis: Other (Contraindicated due to acute bleeding) VTE Mechanical Devices: Intermittant Pneumatic CD Resuscitation Status: CPR: Attempt Resuscitation Attending Statement The patient was seen and examined together with Dr. Hernnadez on 10/23/2016 and I have added additional information to the note above. Vincent Hernandez DO Oct 23, 2016 14:25 Andie Mares DO Oct 23, 2016 18:22
--- NOTE | 2016-10-23 15:23 | NUR ---
Social Work: Screen D: Per EMR review, pt is a 30 year old female admitted for Upper GI Bleed. Pt is [employer] insurance. PCP is Yayo Antonio MD. NOK is pt's mother Taylor Butler. Advanced directives not completed- information provided to pt by [facility]. Readmit score is moderate, 3/8. [facility] met with pt at bedside to discuss discharge planning. Pt lives in [place] with her three adolescent children. Pt states her mother is taking care of the children during hospitalization. Pt is tearful during [facility] [facility] visit stating that she wants to be at home with her children and is nervous for her procedure. [facility] provided support to pt. Pt states that she will discharging home when ready and that her mother will transport her. Pt is I with ADLs at baseline and uses no DME. She has no sw concerns about discharge. A: Pt who is I at baseline. P: Anticipate pt to discharge home via POV once medically stable; [facility] to continue to follow. ALEX Malik
[2016-10-23] MEDS: Lactated Ringer's 1,000 ML IV SCH ×4 (16:12→21:45)
--- NOTE | 2016-10-23 17:19 | PCM.HPANE ---
Patient Data Surgeon Admitting Provider:Andie Mares DO Attending Provider:Andie Mares DO Primary Care Physician:Yayo Antonio MD Other Provider: Reason for Visit Upper Gi Bleed Ht/WT & BMI Height (Feet): 5 Height (Inches): 2.00 Weight (Kilograms): 61.300 Body Mass Index 24.00 Allergies Coded Allergies: No Known Allergies (Verified , 08/25/16) Past Anesthesia History Anesthesia History: Denies:: Abnormal Airway, Anesthesia Reactions, Difficult Intubation, Fam Anesthesia Reaction, Fam Malignant Hypertherm, Malignant Hyperthermia Diabetes History Hx Diabetes?: No MRSA MRSA: No Medications Blood Thinner: Xarelto Last Dose Blood Thinner: Oct 21, 2016 Active Scripts Rivaroxaban (Xarelto)20 Mg [id number] Mg PO DAILY pulmonary embolism #30 TABLET Ref 3 begin 20mg daily after completing 21 days of 15mg BID Prov:Karen You MD 10/03/16 Reported Medications Ibuprofen 800 Mg [id number] Mg PO BID PRN For Pain #60 10/22/16 Citalopram 20 Mg [id number] Mg PO DAILY #30 09/16/16 Discontinued Reported Medications Warfarin Sodium 7.5 Mg Tablet3.25 Mg PO alter day w/7.5mg Ref 0 09/10/16 Warfarin Sodium 7.5 Mg Tablet7.5 Mg PO every oth day Ref 0 09/10/16 Discontinued Scripts Rivaroxaban (Xarelto)15 Mg [id number] Mg PO BID #42 TABLET BID for 21 days Prov:Karen You MD 10/03/16 Guaifenesin/Codeine Phosphate (Guaifenesin-Codeine Syrup)10 Ml Vfpdvn25 Ml PO QID PRN For Cough #120 ML Prov:Raza Goss DO 09/16/16 Enoxaparin (Lovenox)60 Mg/0.6 Ml Cmgqnoo04 Mg SUBQ DAILY #7 SYR Ref 0 Prov:Raza Goss DO 09/16/[address] (Protonix)40 Mg Wrhlgu67 Mg PO DAILY #30 TABLET Prov:Raza Goss DO 09/16/16 History History of ENT Problems?: No HEENT History: Denies:: Abnormal Airway Cataracts Difficult Intubation Dysphagia Glaucoma Hearing Problem Sinus Problem Denture Type: None Teeth Condition: Within Normal Limits Hx of Heart Problems?: Yes Cardiovascular History: Positive for:: Chest Pain (Non cardiac-current) Denies:: Cardiac Surgery Congestive Heart Failure Edema Heart Murmur Hypertension Irregular Heartbeat Pacemaker Rheumatic Fever Thrombophlebitis Hx of Respiratory Problem?: Yes Respiratory History: Positive for:: Pneumonia (Hosp for pnuemonia 2010 8 days) Denies:: Asthma COPD Chest Surgery Cough Dyspnea Emphysema Hemoptysis Oxygen Administration Pulmonary Embolism Tuberculosis Use of C-PAP Machine Use of Inhalers / NEBS Hx Neurologic Problems?: No Neurological History: Positive for:: Dizziness Headaches Denies:: Alzheimer's Disease CVA Dementia Multiple Sclerosis Parkinson's Disease Peripheral Neuropathy Seizures TIA Hx of GI Problems?: Yes Gastrointestinal History: Denies:: Cirrhosis Diverticulitis Gall Bladder Disease Gastroesphageal Reflux Gastrointestinal Bleeding Heartburn Hepatitis Hiatal Hernia Liver Disease Rectal Bleeding Hx of Problems?: Yes Genitourinary History: Positive for:: Kidney Stones (SURGICAL TX FOR KIDNEY STONE IN 05/03) Denies:: HX of Hemodialysis Urinary Tract Infection HX of Peritoneal Dialysis: No Female Hx: Positive for:: Endometriosis (POLYP REMOVAL 07/2015) Denies:: Currently Pelvic Inflammatory Problems with Breasts? Skin History: Denies:: History Skin Disorders? Pressure Ulcers Hx Musculoskeletal Problems?: No Musculoskeletal History: Denies:: Back Injury Degenerative Joint Fibromyalgia Joint Replacement Musculoskeletal Trauma Myasthenia Gravis Osteoarthritis Rheumatoid Arthritis Systemic Lupus Hx of Psycho/Social Problems?: Yes Psycho Social History: Positive for:: Anxiety Denies:: Bipolar Disorder Hx Depression Suicide Attempt Hx Surgeries?: Yes ( X2, BENIGN TUMOR EXCISION, URTERINE POLYP REMOVAL ) Hx Any Other Health Problems?: Yes Other History: Positive for:: Hospitalization (BILATERAL PE, STENT FOR KIDNEY STONES, X2) Thyroid Disease (NO OFFICIAL DX, CONCERNS PER APPEALS OFFICER ) Denies:: Cancer Endocrine Disease History Blood Transfusions: Positive for:: Accept Blood Products? Denies:: Blood Transfuse Reaction Blood Transfusions Hx Diabetes: No Hx Alcohol Use: YesAlcoholic Drinks Per Day: VERY INFREQUENT ETOH USE DUE TO MEDS, WINEHx Substance Use: No Smoking Status: Former Smoker Have You Smoked inLast 12 mo: YesApprox How Many Cigarettes/day: 20 Stop/Bang Treated for Sleep Apnea?: No Do You Have a CPAP Machine?: No S-Snoring: Do You Snore Loudly: No T-Tired: feel tired, fatigued: Yes O-Obsered: Observed not breath: No P-Blood Pressure: treated: No B- Body Mass Index > 35 kg/m2: No A- Age over 50: No N- Neck Large Circumference: No G- Gender Male: No ARABELLA Total Score: 1 Risk Assessment Category Category 1A: Patient has history of documented sleep apnea, and HAS NOT received any narcotic, sedative or anesthesia administration during this stay. Category 1B: Patient has history of documented sleep apnea, and HAS received any narcotic , sedative or anesthesia administration during this stay Category 2: Patient has SUSPECTED Obstructive Sleep Apnea, and HAS received any narcotic , sedative or anesthesia administration during this stay. Category 3: Patient has SUSPECTED Obstructive Sleep Apnea and HAS NOT received narcotic, sedative or anesthesia administration during this stay. Category 4: Outpatient in Procedural Areas with known sleep apnea or who screen positive for High Risk via the STOP/BANG questionnaire. Exam Exam Vital Signs Vital Signs Date Time Temp Pulse Resp B/P Pulse Ox O2 Delivery O2 Flow Rate FiO2 10/23/16 16:08 47 16 126/73 100 Room Air 10/23/16 14:02 36.4 42 18 146/80 100 10/23/16 12:08 36.4 42 18 146/80 100 10/23/16 09:39 36.5 55 14 130/86 98 Room Air General Appearance: Alert, Oriented X3, Cooperative, No Acute Distress HEENT/AIRWAY: MP 2, Neck Movement (FROM), Mouth Opening (3 FBMO) Lungs: Clear to Auscultation, Normal Air Movement Heart: Exam Unremarkable, Regular Rate/Rhythm, No Murmurs/Rubs/Gallops Meds/Labs/Diagnostics Admission Meds Current Medications Potassium Chloride (K-Dur) 20 meq DAILYWM PO Last administered on 10/23/16 09: 21; Start 10/23/16 at 08:00 Lidocaine HCl (Xylocaine Viscous 2% Soln 15mL) 15 ml STK-MED ONCE .ROUTE Last administered on 10/22/16 19:09; Start 10/22/16 at 19:02; Stop 10/22/16 at 19:06; Status DC Polyethylene Glycol/ Electrolytes (Colyte) 2,000 ml ONCE ONCE PO Last administered on 10/22/16 21:22; Start 10/22/16 at 20:35; Stop 10/22/16 at 20:36; Status DC Polyethylene Glycol/ Electrolytes (Colyte) 2,000 ml ONCE ONCE PO Last administered on 10/23/16t 09:21; Start 10/23/16 at 06:00; Stop 10/23/16 at 06:01; Status DC Labs Test 10/22/16 11:48 10/23/16 04:50 Prothrombin Time 10.6sec (8.1-12.5) Prothromb Time International Ratio 0.99ratio White Blood Count 5.6th/mm3 (3.8-10.1) Red Blood Count 3.59mil/mm3 (3.90-5.20) Hemoglobin 8.9g/dL (12.0-15.6) Hematocrit 28.9% (35.0-46.0) Mean Corpuscular Volume 80.5fL (81-100) Mean Corpuscular Hemoglobin 24.8pg (27.0-35.0) Mean Corpuscular Hemoglobin Concent 30.8% (32.0-37.0) Red Cell Distribution Width 14.7% (12.3-15.4) Platelet Count 246bil/L (150-400) Neutrophils (%) (Auto) 48.1% (40-74) Lymphocytes (%) (Auto) 43.3% (14-46) Monocytes (%) (Auto) 5.9% (4-12) Eosinophils (%) (Auto) 1.8% (0-5) Basophils (%) (Auto) 0.7% (0-3) Sodium Level 140mEq/L (134-144) Potassium Level 3.6mEq/L (3.5-5.2) Chloride Level 107mEq/L (97-108) Carbon Dioxide Level 20mmol/L (18-29) Blood Urea Nitrogen 9mg/dL (6-20) Creatinine 0.49mg/dL (0.57-1.00) Estimat Glomerular Filtration Rate 210mL/min (>59) Glucose Level 85mg/dL (60-99) Calcium Level 8.2mg/dL (8.5-10.1) Phosphorus Level 3.3mg/dL (2.5-4.9) Magnesium Level 1.7mg/dL (1.6-2.6) Total Bilirubin 0.3mg/dL (0.0-1.2) Aspartate Amino Transf (AST/SGOT) 18U/L (0-50) Alanine Aminotransferase (ALT/SGPT) 22U/L (0-32) Alkaline Phosphatase 60U/L (25-150) Troponin T 0.010ug/L (0.0-0.011) Total Protein 6.0g/dL (6.4-8.4) Albumin 3.6g/dL (3.4-5.0) Procalcitonin 0.02ng/mL (0.00-0.08) Thyroid Stimulating Hormone (TSH) 0.595uIU/mL (0.450-4.500) Plan Impression Patient chart reviewed, patient interviewed and anesthestic plan with risks, benefits, and alternatives discussed, and informed consent obtained. NPO per Anesth. Guidelines: Yes ASA Physical Status: ASA2 Mod Systemic Disease Anesthetic Plan: MAC Bene/Risks/Altern/Consents: Yes HP Complete Prior to Induction: Yes Syed Miller MD Oct 23, 2016 16:12
--- NOTE | 2016-10-23 17:21 | PCM.ANEP1 ---
Post Anesthesia PACU Phase 1 Assessment Vital Signs Vital Signs Date Time Temp Pulse Resp B/P Pulse Ox O2 Delivery O2 Flow Rate FiO2 10/23/16 17:10 37 16 140/76 100 Room Air 10/23/16 17:00 46 16 124/70 100 Room Air 10/23/16 16:50 49 16 116/69 98 Room Air 10/23/16 16:08 47 16 126/73 100 Room Air 10/23/16 14:02 36.4 42 18 146/80 100 10/23/16 12:08 36.4 42 18 146/80 100 10/23/16 09:39 36.5 55 14 130/86 98 Room Air Anesthetic Administered: MAC Level of Alertness: Awake, talking WORKMAN's with Equal Strength: Yes Pain: Yes Pain Scale Score: 7 Nausea or Vomiting: No CV Function & Hydration Stable: Yes Airway Device: Oxygen Delivery: Room Air Lungs: Clear to Auscultation, Normal Air Movement Dermatome Level: Full Sensation PACU Phase 2 Assessment Complications: No Follow up Care: N/A Patient Instructions Provided: N/A Syed Miller MD Oct 23, 2016 17:21
--- NOTE | 2016-10-23 18:36 | NUR ---
A/Ox3, makes needs known. Sinus kyle 36-55. 2+ pedal and radial pulses bilat. MD notified and fluids DC'd. Denies SOB, 5/10 pleuritic pain on inspiration. 100% on RA. Full liquid diet to advance as tolerated. Tolerating clears at this time. Continent of b/b using bathroom independently. 7/10 pleuritic pain resolved w norco x2 today. Pt awake and pleasant at this time, reports lessened anxiety after procedure. SL in R forearm patent, no s/s infiltration or phlebitis.
--- NOTE | 2016-10-23 21:58 | NUR ---
Assumed care 2129: assumed care from GEN Riddle. patient is a/o, makes needs known. Tolerating LR @ 120cc/hour to PIV. reports generalized/abd pain 6-11/24, prn norco effective. diet advance as tolerated; jessie crackers and saltines and juices available at bedside. call light w/in reach. Addendum: 10/24/16 at 0254 by MIKEL PERDOMO RN orders for NS @ 100, and LR @ 120. Page to MD requesting clarification. Now running LR @ 120/hr. patient w/ increasing s/sx anxiety, tearfully states "I just want to go home. I want to see my kids." states she is also upset as her phone is , has no smelter charger. A fellow co-worker kindly offered his smelter charger, and patient seemed slightly calmer, although still states she wants to leave. She got dressed including socks and shoes. MD available on floor, asked if he would speak w/ her, which he did. PRN Ativan given at this time, which was fairly effective. provided listening support. brought fresh drinks and crackers to bedside, warm washcloth to wipe her tears. 0300: resting quietly w/ eyes closed. appears comfortable. CTM for changes.
--- NOTE | 2016-10-24 00:47 | ENDO ---
[address] [address] ENDOSCOPY PROCEDURE PATIENT: DANIEL BLAIR : 1985 MR#: [id number] ADMIT: 10/22/2016 JOB ID: [id number] DATE OF PROCEDURE: 10/23/2016 PROCEDURE: Colonoscopy. INDICATIONS: A 30-year-old female who is hospitalized with symptoms of GI bleeding. She had some blood-stained bilious emesis but upper endoscopy was relatively unremarkable. The patient characterized the blood she saw per rectum as bright red. We; therefore, pursued colonoscopic interrogation today. EQUIPMENT: [employer]-[id number]. SEDATION: Monitored anesthesia as provided by Dr. Syed Miller. COMPLICATIONS: None identified. BOWEL PREPARATION: Excellent. PROCEDURE INFORMATION: After the risks and benefits were explained, written and verbal informed consent was obtained. The patient was brought into the endoscopy suite and placed into the left lateral decubitus position. Sedation was achieved using the above-stated medications with the addition of oxygen via nasal cannula. Digital rectal examination was accomplished and no significant pathology, apart from some mild internal hemorrhoids, noted. The scope was introduced into the rectum and advanced under direct visualization to the level of the cecum, as identified by the appendiceal orifice and ileocecal valve. The terminal ileum was briefly accessed. The scope then slowly withdrawn to carefully examine the mucosa for any defects or lesions. Multiple direct views were made through the dentate line for exclusion of pathology. The colon was decompressed, the scope removed from the patient who tolerated the procedure well. FINDINGS: No significant polyps, mass lesions, or inflammatory features identified throughout. The terminal ileum appeared normal. There was a yellow bile-stained small amount of residual prep and fluid remaining in her colon. No sign of any recent or active bleeding. However, the hemorrhoidal cushions were relatively engorged and in the right anterior aspect there was evidence of some superficial vascularity and erythema consistent with a possible hemorrhoidal source. ENDOSCOPIC DIAGNOSES: 1. Hemorrhoids. 2. Otherwise visually unremarkable colonoscopy. RECOMMENDATIONS: 1. The patient is encouraged to take intermittent warm Epsom salt baths to diminish hemorrhoidal engorgement. [id number] Preparation H suppository as needed. However, should bleeding recur, then I would recommend surgical consultation for hemorrhoidal intervention, especially in that she needs to be on long-term anticoagulation. I think it would be reasonable to restart the Xarelto here in the hospital and see how she does. 2. Diet can be advanced as tolerated.
[2016-10-24 03:12] VITALS: BP 103/62; PULSE 56; RESP 20; O2SAT 100
[2016-10-24 03:48] LABS: BASOPHILS % (AUTO) 0.4 % (0-3); EOSINOPHILS % (AUTO) 2.7 % (0-5); MONOCYTES % (AUTO) 6.8 % (4-12); Mean Corpuscular Hemoglobin 25.3 pg (27.0-35.0); Mean Corpuscular Volume 79.8 fL (81-100); NEUTROPHILS % (AUTO) 46.5 % (40-74); Platelet Count 253 bil/L (150-400)
[2016-10-24 04:51] LABS: Magnesium 1.6 mg/dL (1.6-2.6); Phosphorus 3.3 mg/dL (2.5-4.9)
[2016-10-24 05:30] VITALS: PULSE 41
[2016-10-24] MEDS: Potassium Chloride 20 mEq SR Tablet PO SCH (07:45)
[2016-10-24 08:00] VITALS: BP 137/77; PULSE 47; PULSE 60; RESP 16; O2SAT 98
--- NOTE | 2016-10-24 09:13 | PCM.DIMED ---
HernandezVincent DO 10/24/16 0913: Discharge Instructions Date of Service Oct 24, 2016 Dates of Hospitalization Oct 22, 2016 at 14:40 Discharge Diagnosis Discharge Diagnosis Acute GI bleed: We have done a thorough evaluation of to identify where you might be bleeding from. It appears that you had some very large Hemorrhoids that burst and leaked blood. A hemorrhoid is a blood vessel in your rectum that becomes clogged with blood. Both and constipation put you at greater risk of developing hemorrhoids because of increased pressure in your belly. Dr. Callahan has advised that you should soak in sitz baths twice per day; you should also continue to take a stool softener and try to increase the fiber in your diet. Subacute Right upper quadrant pain with nausea/vomiting: We have ruled out any problems with your gallbladder or liver. If this pain continues to bother you, particularly if it gets worse after meals you should notify your primary care provider or return to the emergency department for further evaluation. Suspected Protein S deficiency: There are still some diagnostic tests that have yet to return to confirm whether or not you have this problem. The blood clots you got during are very suspicious for protein S deficiency. We will continue your Xarelto blood thinning medication when you return home. Chest pain: We have ruled out any imminently dangerous problems with your heart. This chest pain was most likely due to anxiety which is a very common cause of chest pain. Medication Instructions Additional med instructions Please resume taking your Xarelto when you return home. Test Results Test Results ENDOSCOPIC DIAGNOSES: 1. Hemorrhoids. 2. Otherwise visually unremarkable colonoscopy. Diet Discharge Diet: Other (Please start eating a high fiber diet with plenty of vegetables and less red meat to minimize constipation.) Activity Discharge Activity: Limited until seen by PCP (Be up and about moving, but do not over exert yourself. Try to balance rest and activity.) Call your provider Call your provider for: Fever or Chills, Shortness of breath, Bleeding, Chest pain, Vomitting, Excessive diarrhea, Weakness (unilateral) Patient Instructions Patient Instructions Please purchase a Sitz bath from any local pharmacy, use this twice per day to reduce your hemorrhoids. We will prescribe you with a stool softener that you should continue to take daily. Please try to increase the fiber in your diet, or purchase a fiber supplement such as Metamucil. You may also want to purchase a Preparation H suppository over the counter to reduce pain and inflammation from your hemorrhoids. Please try to minimize the time spent on the toilet and avoid straining for bowel movements. Follow-up plan Please follow up with your primary care provider Dr. Antonio within 2 weeks for further evaluation. Follow-up Provider: Yayo Antonio MD Follow-up with PCP in: 2 weeks Andie Mares DO 10/24/16 1235: Discharge Instructions Discharge Diagnosis Discharge Diagnosis There are no signs of bleeding inside your colon or your esophagus (your throat area). All of your bleeding issues are coming from your hemorrhoids. Please follow the instructions for sitz baths and follow up with your regular doctor. Attending's Statement The patient was seen and examined together with Dr. Hernandez on 10/24/16 and I agree with the history, exam and plan as outlined in the note above. Vincent Hernandez DO Oct 24, 2016 09:13 Andie Mares DO Oct 24, 2016 12:35
[2016-10-24] MEDS ORDERED: SENN-133 PO (09:32)
[2016-10-24] MEDS ORDERED: POLY17PO6 PO (09:32)
--- NOTE | 2016-10-24 09:36 | PCM.DC.MED ---
Discharge Summary Date of Service Oct 24, 2016 Dates of Hospitalization Date of Hospital Admission Oct 22, 2016 at 14:40 Date of Discharge: Oct 24, 2016 Providers: Admitting Physician: Andie Mares DO Primary Care Physician: Yayo Antonio MD Attending Physician: Andie Mares DO Diagnosis at Time of Discharge Diagnosis at Time of Discharge Acute GI bleed with blood loss anemia second to NSAID use; present admission; ongoing Subacute Right upper quadrant pain with nausea/vomiting; present admission; ongoing Suspected Protein S deficiency Chest pain, appears subacute; present admission; ongoing Possible post depression, present on admission. Ongoing Consultations Gastroenterology with Dr. Callahan Procedures XRay, CTs & MRIs Chest x-ray IMPRESSION: Negative chest. No acute cardiopulmonary process is evident. Dictated by: Paramjit Hebert M.D. on 10/22/2016 at 11:46 ECG 12 Lead Normal sinus rhythm with a rate of 88, no concerning ST changes, although V4 through 6 Minor T-wave abnormality not reciprocated elsewhere; QTC 442 Invasive Procedures PROCEDURE: Colonoscopy. FINDINGS: No significant polyps, mass lesions, or inflammatory features identified throughout. The terminal ileum appeared normal. There was a yellow bile- stained small amount of residual prep and fluid remaining in her colon. No sign of any recent or active bleeding. However, the hemorrhoidal cushions were relatively engorged and in the right anterior aspect there was evidence of some superficial vascularity and erythema consistent with a possible hemorrhoidal source. ENDOSCOPIC DIAGNOSES: 1. Hemorrhoids. 2. Otherwise visually unremarkable colonoscopy. RECOMMENDATIONS: 1. The patient is encouraged to take intermittent warm Epsom salt baths to diminish hemorrhoidal engorgement. [id number] Preparation H suppository as needed. However, should bleeding recur, then I would recommend surgical consultation for hemorrhoidal intervention, especially in that she needs to be on long-term anticoagulation. I think it would be reasonable to restart the Xarelto here in the hospital and see how she does. 2. Diet can be advanced as tolerated. Ariel Callahan MD 10/23/16 6320 PROCEDURE: Esophagogastroduodenoscopy. FINDINGS: 1. Duodenum: No sign of new or old blood. No sign of ulcer, mass lesion or bleeding source. 2. Stomach: No new or old blood. The mucosa was a little friable with suction fannie from the endoscope, but this was a function of the Xarelto. I did not see any ulcerations. No mass lesions. No outlet obstruction. No Padmini- Williamson. No Dieulafoy's. Retroflexed views disclosed a small sliding hiatal hernia. There was bile-stained gastric fluid, small volume remaining 3. Esophagus: The squamocolumnar junction correlated with the top of the gastric folds. No acute erosive changes. No strictures. No mass lesions. Again, no Padmini-Williamson. No pathology in the esophagus. ENDOSCOPIC DIAGNOSES: 1. Small hiatal hernia. 2. Minimal gastropathy. 3. No sign of acute active upper gastrointestinal bleed. RECOMMENDATIONS: 1. The patient can be converted back over to oral proton pump inhibitor. 2. Continue to hold Xarelto for now. 3. Bowel prep is offered and colonoscopy is pursued for tomorrow with anesthesia. Fortunately, at the moment there is no sign of any ongoing active hemorrhage. Ariel Callahan MD 10/22/161921 . Brief History Taken from History and Physical composed by Dr. Syed Marinelli on 10/22/16 30-year-old female with a history of bilateral pulmonary embolism in July 2016 , recent 4 months ago, and undergoing investigation for protein S deficiency on cervical title presents to the emergency department following 3 days of nausea and vomiting with hematemesis and hematochezia. Hospital Course 30-year-old female with a recent history of bilateral pulmonary embolisms and suspected protein S deficiency who presents with hematochezia and hematemesis while on Xarelto. Patient last took Xarelto on the evening of (10/22/16). Upper endoscopy did not reveal active bleed or other source of declining H/H. Lower endoscopy revealed large hemorrhoids which are the likely precipitant of her GI bleed in the setting of recent , likely opiate induced constipation, and poor fiber intake. Of note the patient did have evidence of hiatal hernia and changes to gastric mucosa consistent with Xarelto therapy as outlined in operative report by Dr. Callahan. For Full hospital course see below. Acute GI bleed with blood loss anemia secondary to NSAID use; present admission ; ongoing -Likely secondary to Hemorrhoids -Patient presents with a positive Hemoccult, downtrending H&H 9.9 on admission with continued downward trend; Ibuprofen 800mg BID taken habitually for pleuritic pain from PE -Patient was typed and crossed in the ED and given 1 L saline -Additional liter of saline was given an IVF at 100 mL -Dr. Callahan consulted from the ED and patient will be taken for EGD 10/22/16 -Absolutely no NSAIDs and patient to be kept nothing by mouth until after procedure clearance by Dr. Callahan -Upper endoscopy 10/22/16 without identification of the source of bleeding -Colonoscopy reveals hemorrhoids with report summary as above -Consent for transfusion Hemorrhoids, present on admission, acute on chronic. Active -As above colonoscopy was negative for any source of bleed other than hemorrhoids -Likely secondary to recent , constipation with possible optiate contribution -GI recommends: Sitz baths twice per day -Preparation H suppository -Increase dietary fiber and/or purchase fiber supplement -Reduce time spent on the toilet -Should this reoccur the patient would likely benefit from surgical consultation for hemorrhoidectomy or banding. Subacute Right upper quadrant pain with nausea/vomiting; present admission; ongoing -Patient complains of recurrent right upper quadrant pain; LFTs unremarkable; nausea is likely due to her acute GI bleed -Prior evaluation a CT did not show gallstones -Ultrasound right upper quadrant unremarkable -Zofran for nausea -Follow CMP Suspected Protein S deficiency -Patient has not completed a full workup to confirm protein S deficiency but presents on Xarelto -Xarelto resumed on discharge -SCDs while inpatient Chest pain, appears subacute; present admission; ongoing -Patient has had repeated episodes of chest pain going back to July; questionable if due to anxiety -Recent diagnoses include costochondritis and bilateral PE -Likely component of recent vomiting -EKG unremarkable; troponin negative Depression/Anxiety -Possible post component of depression -Resumed home medication -Ativan for agitation/anxiety . Exam Vital Signs (Last) Date Time Temp Pulse Resp B/P Pulse Ox O2 Delivery O2 Flow Rate FiO2 10/24/16 08:00 36.9 47 16 137/77 98 Room Air 10/22/16 19:18 4 Exam Gen: A/O x3 cooperative woman who is anxious Neck: Supple, Full ROM, no JVD HEENT: PERRL, EOMI, no scleral icterus, no conjunctival pallor, no visible blood in mouth CV: RRR, no murmurs rubs or gallops Resp: lungs CTA BL, no wheezing rales or rhonchi Abd: soft, mild diffuse tenderness to palpation, +BS 4Q, no rebound or guarding Extr: No cyanosis clubbing or edema Neuro: CN 2-12 grossly intact, no focal neurologic deficit Psych: quiet and reserved with minimal interaction Test 10/22/16 11:48 10/23/16 04:50 10/24/16 03:25 Prothrombin Time 10.6sec (8.1-12.5) Prothromb Time International Ratio 0.99ratio Total Bilirubin 0.3mg/dL (0.0-1.2) Aspartate Amino Transf (AST/SGOT) 18U/L (0-50) Alanine Aminotransferase (ALT/SGPT) 22U/L (0-32) Alkaline Phosphatase 60U/L (25-150) Troponin T 0.010ug/L (0.0-0.011) Total Protein 6.0g/dL (6.4-8.4) Albumin 3.6g/dL (3.4-5.0) Procalcitonin 0.02ng/mL (0.00-0.08) Thyroid Stimulating Hormone (TSH) 0.595uIU/mL (0.450-4.500) White Blood Count 4.8th/mm3 (3.8-10.1) Red Blood Count 3.56mil/mm3 (3.90-5.20) Hemoglobin 9.0g/dL (12.0-15.6) Hematocrit 28.4% (35.0-46.0) Mean Corpuscular Volume 79.8fL (81-100) Mean Corpuscular Hemoglobin 25.3pg (27.0-35.0) Mean Corpuscular Hemoglobin Concent 31.7% (32.0-37.0) Red Cell Distribution Width 14.4% (12.3-15.4) Platelet Count 253bil/L (150-400) Neutrophils (%) (Auto) 46.5% (40-74) Lymphocytes (%) (Auto) 43.6% (14-46) Monocytes (%) (Auto) 6.8% (4-12) Eosinophils (%) (Auto) 2.7% (0-5) Basophils (%) (Auto) 0.4% (0-3) Sodium Level 140mEq/L (134-144) Potassium Level 3.9mEq/L (3.5-5.2) Chloride Level 107mEq/L (97-108) Carbon Dioxide Level 22mmol/L (18-29) Blood Urea Nitrogen 6mg/dL (6-20) Creatinine 0.51mg/dL (0.57-1.00) Estimat Glomerular Filtration Rate 200mL/min (>59) Glucose Level 139mg/dL (60-99) Calcium Level 8.1mg/dL (8.5-10.1) Phosphorus Level 3.3mg/dL (2.5-4.9) Magnesium Level 1.6mg/dL (1.6-2.6) Discharge Medications Discharge Medications Citalopram (Citalopram) 20 Mg Tablet 20 MG PO DAILY (Reported) Rivaroxaban (Xarelto) 20 Mg Tablet 20 MG PO DAILY begin 20mg daily after completing 21 days of 15mg BID Prescribed by: TACHO ROJAS MD As needed Ibuprofen (Ibuprofen) 800 Mg Tablet 800 MG PO BID PRN PRN For Pain (Reported) Polyethylene Glycol 3350 (Miralax) 17 Gm Powd.pack 17 GM PO DAILY PRN PRN For Constipation Prescribed by: OLIVIER HERNANDEZ DO Sennosides (Senna) 8.6 Mg Tablet 17.2 MG PO BID PRN PRN For Constipation Prescribed by: OLIVIER HERNANDEZ DO Additional med instructions Please resume taking your Xarelto when you return home. Followup Plan Follow-up plan Please follow up with your primary care provider Dr. Antonio within 2 weeks for further evaluation. Discharge Diet: Other (Please start eating a high fiber diet with plenty of vegetables and less red meat to minimize constipation.) Discharge Activity: Limited until seen by PCP (Be up and about moving, but do not over exert yourself. Try to balance rest and activity.) Patient Instructions Please purchase a Sitz bath from any local pharmacy, use this twice per day to reduce your hemorrhoids. We will prescribe you with a stool softener that you should continue to take daily. Please try to increase the fiber in your diet, or purchase a fiber supplement such as Metamucil. Follow-up Provider: Yayo Antonio MD Follow-up with PCP in: 2 weeks Time spent Time spent coordinating discharge and counseling patient > 35 minutes Attending Statement The patient was seen and examined together with Dr. Hernandez on 10/24/16 and I have added additional information to the note above. copies to: Yayo Antonio MD, David E DO Oct 24, 2016 09:36 Andie Mares DO Oct 24, 2016 17:48 vegetables and less red meat to minimize constipation.) Discharge Activity: Limited until seen by PCP (Be up and about moving, but do not over exert yourself. Try to balance rest and activity.) Patient Instructions Please purchase a Sitz bath from any local pharmacy, use this twice per day to reduce your hemorrhoids. We will prescribe you with a stool softener that you should continue to take daily. Please try to increase the fiber in your diet, or purchase a fiber supplement such as Metamucil. Follow-up Provider: Yayo Antonio MD Follow-up with PCP in: 2 weeks Time spent Time spent coordinating discharge and counseling patient > 35 minutes copies to: Yayo Antonio MD, David E DO Oct 24, 2016 09:36 Andie Mares DO Oct 24, 2016 17:48
--- NOTE | 2016-10-24 11:10 | NUR ---
Discharge Pt reports being able to tolerate solid foods this am. Pt's HR sinus in the 40s-60s, MDs aware. Pt discharged to home with family at ~1100 today. Pt given discharge educational materials on new prescriptions, GI bleeds, and hemorrhoids pamphlet. Pt's IV access D/C'd and intact X2. Pt instructed that PCP would be contacting Pt at home for f/u appointment. Pt verbalized understanding of all discharge instructions. All belongings accompanied Pt at time of discharge.
== END 2016-10-24 11:30 | disposition home or self-care (01) | DRG 254 ==
LOC: SED 11:10 → PCC 14:40 → OBSVTOIN 14:40
PROVIDERS: ADMIT Neuromusculoskeletal Medicine & OMM; ATTEND Neuromusculoskeletal Medicine & OMM
PROC: 0DJ08ZZ Inspection of Upper Intestinal Tract, Via Natural or Artificial Opening Endoscopic (ICD-10-PCS; principal; 2016-10-22 17:00)
PROC: 0DJD8ZZ Inspection of Lower Intestinal Tract, Via Natural or Artificial Opening Endoscopic (ICD-10-PCS; 2016-10-23)
DX: K64.8 Other hemorrhoids (principal); D68.59 Other primary thrombophilia; Z86.711 Personal history of pulmonary embolism; Z79.01 Long term (current) use of anticoagulants; Z87.891 Personal history of nicotine dependence; F41.8 Other specified anxiety disorders; D50.0 Iron deficiency anemia secondary to blood loss (chronic); R11.2 Nausea with vomiting, unspecified; R07.9 Chest pain, unspecified

== ENCOUNTER 2016-11-03 12:12 | Emergency (ER) | payer OTHER ==
[~2016-11-03] VITALS: Ht 157.5 cm; Wt 60.0 kg
[~2016-11-03 12:12] MED LIST changes: -GUAI10LI PO; +IBUP800T28 PO; -LOV60 SUBQ; -PANT40TA2 PO; +POLY17PO6 PO; -RIVA15TA PO; +SENN-133 PO; -WARF7.5T4 PO
[2016-11-03 12:19] VITALS: BP 123/72; PULSE 80; RESP 15; O2SAT 100
[2016-11-03 13:02] VITALS: PULSE 84; RESP 15; O2SAT 100
[2016-11-03 13:13] LABS: BASOPHILS % (AUTO) 0.4 % (0-3); MONOCYTES % (AUTO) 7.5 % (4-12); Mean Corpuscular Hemoglobin 24.8 pg (27.0-35.0); Mean Corpuscular Volume 77.3 fL (81-100); NEUTROPHILS % (AUTO) 65.6 % (40-74); Platelet Count 414 bil/L (150-400)
--- NOTE | 2016-11-03 13:15 | ED.REPORT ---
HPI-Dyspnea / Wheezing Date of Service Nov 03, 2016 ED Provider: The patient is a 30-year-old female with a history of bilateral pulmonary embolism in July 2016 undergoing investigation for protein S deficiency on Xarelto presenting to the ED following 2 days of cough and SOB. Patient states that she had a nonproductive cough and SOB that started 2 days ago with nonradiating, right-sided chest pain following coughing fits. The pain is not as severe as the pain she had with the PE. Other associated symptoms include chills, dizziness, nausea, and nasal congestion. She denies any other symptoms. She was admitted to the hospital for anemia likely due to GI bleed. Both upper and lower endoscopy were done at that time, which only showed hemorrhoids with no evidence of upper GI bleed. She was told not to take Ibuprofen or NSAIDs since then. However, she took one tablet of Ibuprofen for the pain yesterday, but it did not help her pain. She also tried Tramadol, which no longer works as well. She admits some alcohol drink yesterday for Father's day. She has 1-pack- year history of smoking, but quit after she was diagnosed with PE. No recent travel or immobilization. Nursing Notes Stated Complaint: SOB Chief Complaint: Respiratory Complaints Nursing Notes Reviewed: Yes Allergies: Coded Allergies: No Known Allergies (Verified , 11/03/16) Scheduled Citalopram (Citalopram) 20 Mg Tablet 20 MG PO DAILY Pantoprazole DR (Protonix) 40 Mg Tablet 40 MG PO DAILY Rivaroxaban (Xarelto) 20 Mg Tablet 20 MG PO DAILY begin 20mg daily after completing 21 days of 15mg BID Scheduled PRN Guaifenesin/D-Methorphan Hb/PE (Robitussin Cough-Cold Cf Liq) 118 Ml Liquid 118 ML PO Q4H PRN PRN For Cough Hydrocodone-Acetaminophen 5-325 mg (Hydrocodone-Acetaminophen 5-325 mg) 1 Each Tablet 1 TABLET PO Q6H PRN PRN For Pain Ibuprofen (Ibuprofen) 800 Mg Tablet 800 MG PO BID PRN PRN For Pain Polyethylene Glycol 3350 (Miralax) 17 Gm Powd.pack 17 GM PO DAILY PRN PRN For Constipation Sennosides (Senna) 8.6 Mg Tablet 17.2 MG PO BID PRN PRN For Constipation General Time Seen by MD: 13:14 Chief Complaint Chest pain, Cough, Shortness of breath Hx Obtained From: Patient Arrived By: Walk-in Sudden in Onset?: Yes Onset Occurred: 2 days ago Symptom Duration: Constant Location: : Chest right Quality: Same as prior Radiation: : Does not radiate Severity: Current: Mild Severity: Maximum: Pain level 7 out of 10 Associated with: Reports: Anxiety, Chest pain, Cough, Nasal congestion, Nausea , Denies: Diaphoresis, Fever, Hemoptysis, Vomiting, Wheeze Pertinent Negative: Pt denies other symptoms Pertinent Negative: Exacerbated by nothing, Relieved by nothing Context Related History: Reports: Anxiety, Pulmonary embolism Recent Healthcare: Recent doctor visit, Recent hospitalization Similar Sx Previous: Yes Risk Factors CAD Risk Stratification Family history Smoking Risk factors reviewed PE Risk Stratification Coagulation Disorder Previous PE Risk factors reviewed PERC Rule Prior Hx of DVT/PE Pretest under 15%, One or more crit "Yes" Well's Criteria for PE Prior DVT or PE (1.5) Well's PE Score: 0-2 pts (low risk 3.6%) Past Medical History 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 lipoma upper back Kidney stone removal Stent Family History Noncontributory Smoking History Former Smoker (quit earlier this year) Social History Alcohol Use: Denies alcohol use Drug Use: Denies drug use Other Social History: , Local resident Ambulatory Status Independent Review of Systems Basic Review of Systems Eyes: Vision NL, No discharge Neurologic: NL mental status, No weakness, No numbness Psychiatric: Normal thought content Constitutional: Reports: Chills, Fatigue, Denies: Fever, Recent wt loss Ears / Nose / Throat: Reports: Nasal congestion, Denies: Ear ringing bilateral, Hearing loss bilateral, Sore throat, Voice change Respiratory: Reports: Non-productive cough, Pleuritic pain, Shortness of breath , Denies: Hemoptysis, Wheezing Cardiovascular: Reports: Chest pain, Denies: Orthopnea, Palpitations, Syncope Complete sys rev & neg: except as marked. Physical Exam Initial Vital Signs Vital Signs (First) Date Time Temp Pulse Resp B/P Pulse Ox O2 Delivery O2 Flow Rate FiO2 11/03/16 12:19 36.8 80 15 123/72 100 Room Air Initial VS: Reviewed, Vital signs normal Head / Eyes: Atraumatic, Normocephalic, PERRL ENT: Mucous membranes moist, Conjunctiva normal, No scleral icterus Abdomen / GI: Soft, Non-tender, No guarding, No rebound, No distention Back: No CVA tenderness Lymphatic: No lymphadenopathy Extremities: Vascular intact, Neuro intact, No swelling, No tenderness Skin: Warm, Dry, No cyanosis Neurologic: Alert, Oriented, Nonfocal Psychiatric: Mood/affect normal, Behavior normal, Normal thought content Respiratory / Chest: Atraumatic, Breath sounds NL, Breath sounds = bilat, No respiratory distress, No rales, No wheezing, No retractions Cardiovascular: Heart rate NL, Regular rhythm, Heart sounds NL, No murmurs, Cap refill not delayed chest pain is reproducible with palpation to the right chest wall. Psychiatric: Affect NL, Mood NL, Not suicidal, No hallucinations, Cognitive function NL Abnormal Mood/Affect: Positive: Anxious Interpretation & Diagnostics Lab Results Interpretation Result Diagram: 11/03/16 1306 11/03/16 1306 Test 11/03/16 13:06 White Blood Count 8.2th/mm3 (3.8-10.1) Red Blood Count 4.32mil/mm3 (3.90-5.20) Hemoglobin 10.7g/dL (12.0-15.6) Hematocrit 33.4% (35.0-46.0) Mean Corpuscular Volume 77.3fL (81-100) Mean Corpuscular Hemoglobin 24.8pg (27.0-35.0) Mean Corpuscular Hemoglobin Concent 32.0% (32.0-37.0) Red Cell Distribution Width 14.5% (12.3-15.4) Platelet Count 414bil/L (150-400) Neutrophils (%) (Auto) 65.6% (40-74) Lymphocytes (%) (Auto) 25.4% (14-46) Monocytes (%) (Auto) 7.5% (4-12) Eosinophils (%) (Auto) 1.0% (0-5) Basophils (%) (Auto) 0.4% (0-3) Prothrombin Time 10.4sec (8.1-12.5) Prothromb Time International Ratio 0.97ratio D-Dimer < 0.50mg/L FEU (<0.50) Sodium Level 141mEq/L (134-144) Potassium Level 4.3mEq/L (3.5-5.2) Chloride Level 105mEq/L (97-108) Carbon Dioxide Level 21mmol/L (18-29) Blood Urea Nitrogen 15mg/dL (6-20) Creatinine 0.59mg/dL (0.57-1.00) Estimat Glomerular Filtration Rate 169mL/min (>59) Glucose Level 82mg/dL (60-99) Calcium Level 9.3mg/dL (8.5-10.1) Total Bilirubin 0.2mg/dL (0.0-1.2) Aspartate Amino Transf (AST/SGOT) 15U/L (0-50) Alanine Aminotransferase (ALT/SGPT) 17U/L (0-32) Alkaline Phosphatase 83U/L (25-150) Troponin T < 0.010ug/L (0.0-0.011) Pro-B-Type Natriuretic Peptide 40.46pg/mL (0-130) Total Protein 7.3g/dL (6.4-8.4) Albumin 4.5g/dL (3.4-5.0) Hold Rodriguez Top Tube Received (Received) Lab values outside NL range: no clinical significance. Lab Results Interpretation: Negative DDimer ECG Interpretation Time: 13:19 Normal ECG Interpretation: Normal ECG w/ rate of... (82), Normal rate, No acute ischemic changes, No change from prior ECGs X-Ray Chest Interpretation Chest Xray Interpretation: IMPRESSION: No acute pulmonary process. Dictated by: Elaine Bartlett M.D. on 11/03/2016 at 14:26 Approved by: Elaine Bartlett M.D. on 11/03/2016 at 14:26 Re-Eval/Medical Decision Med Decision/Clinical Course 30-year-old female with a history of bilateral pulmonary embolism in July 2016 undergoing investigation for protein S deficiency on Xarelto presenting to the ED following 2 days of nonproductive cough and SOB. She also complained of worsening pleuritic chest pain, that was reproducible on exam today. Given her recent history of PE, a D-Dimer was done, but came back negative. Wells' criteria of 1.5, which is low risk for PE. Her cardiac workups are essentially negative as well. The second troponin was not done because patient requested to be discharged. It is likely that the patient has a viral upper respiratory tract infection as the cause of her symptoms. Other differential include, but not limited to GERD, PE, pneumonia, ACS, or anxiety. A dose of Robitussin cough syrup and Protonix were given in the ER. Patient reports improvement of the cough and would like to get a prescription to go home with. She also requests something for the pleuritic pain as she has been planning to see her PCP for the pain issue, but could not get an appointment. A prescription for Vicodin 5mg #15 was given. Patient declined pain medication in the ER as she has to drive home. She was discharged in stable condition and all question were answered. Source of Hx: Old records Re-Evaluation/Progress : Time of Eval: 15:15 Patient Status: Mild relief Re-Evaluation/Progress Note: Patient rechecked and reported improvement of the cough with the cough syrup. She would like something for the pleuritic chest pain as she has been trying to set up an appointment with her PCP, but the next available appointment is 12/12. She reports nausea with Percocet. Will give a prescription for Vicodin. Patient does not want any pain medication in the ER as she has to drive home. Differential Diagnosis: Positive: Acute coronary syndrome, Anxiety, Myocardial infarction, Panic attack, Pulmonary embolism Severity: Non life-threatening Diagnosis Appears: Non-critical Counseled Regarding: Diagnosis, Lab results, Need for follow-up, When/why to return to ED Discharge & Departure Impression: Primary Impression: Upper respiratory infection URI type: unspecified viral URI Qualified Code: J06.9 - Acute upper respiratory infection, unspecified Additional Impression: Chest pain Chest pain type: chest pain on breathing Qualified Code: R07.1 - Chest pain on breathing Disposition: Home Discharge Condition All VS Reviewed: Yes Condition: Stable Patient Instructions: Chronic Cough (ED) Additional Instructions: You were seen in the ED today for evaluation of the cough, shortness of breath, and chest pain. The XR and labs are negative for any bacterial infection. There is no other evidence of pulmonary embolism based on the labs and exam today. It is likely that your cough is due to an viral upper respiratory infection. No antibiotic is indicated today. You can take the cough syrup as directed to help with the cough. In general, viral infection should go away with supportive care, such as rest, drinking fluid, and take Tylenol as needed for discomfort. Your EKG and initial labs did not show any evidence of cardiac etiology. We recommended you to have the second Troponin to rule out acute coronary syndrome , but you declined and requested to be discharge. Please return to the ER if your chest pain worsens, or if you develop severe headache, nausea, vomiting, or change in mental status. Other possible causes of the cough and chest pain could be heartburn. You should take the Protonix once daily to see if it helps. I will give you a prescription for Vicodin 5mg today. You need to follow up with your primary care doctor for pain management. You can also discuss with your primary care doctor for a possible surgery consult if the hemorrhoids keep bothering you. Referrals: Yayo Antonio MD (PCP) Lukas Spangler DO (Family) EDSupervising Provider for APC: Miles Alfredo MD Attending Statement Discussed patient with resident. I evaluated the patient independently and agree with plan as above. In brief, 30-year-old female history of PEs on xarelto presenting complaining of cough times several days, congestion, pleuritic chest pain. She reports chronic chest pain as a result of her PEs. Her vital signs are stable. Her troponins are negative. Her d-dimer is negative. Chest x-ray is clear. I recommended an additional set of troponins but she requests to go home. She will be discharged home with a cough suppressant for likely viral URI noncardiac chest pain with return precautions. Follow up primary doctor 1-2 days. copies to: Yayo Antonio MD, Ben M MD Nov 03, 2016 13:15 Reed Parry DO Nov 03, 2016 13:47
[2016-11-03 13:26] LABS: INR 0.97 ratio
[2016-11-03 13:46] LABS: TROPONIN T < 0.010 ug/L (0.0-0.011)
[2016-11-03 14:12] VITALS: BP 113/65; PULSE 82; RESP 20; O2SAT 98
[2016-11-03] MEDS ORDERED: Pantoprazole 40 mg ER24 Tablet PO ONE (14:20)
[2016-11-03] MEDS ORDERED: guaiFENesin 20 mg/mL 10 mL Syrup PO ONE (14:20)
--- NOTE | 2016-11-03 14:28 | DRSVH ---
PROCEDURE: X-RAY CHEST ONE VIEW, PORTABLE ([id number]) INDICATIONS: cough chest pain TECHNIQUE: One view of the chest was acquired. COMPARISON: [facility], CR, XR CHEST 1VW (PORTABLE), 10/22/2016, 12:13. FINDINGS: Surgical changes and devices: None. Lungs and pleura: No pleural effusions or pneumothorax. Lungs are clear. Mediastinum: Mediastinal contours appear normal. Heart size is normal. Bones and chest wall: No suspicious bony lesions. Overlying soft tissues appear unremarkable. IMPRESSION: No acute pulmonary process. Dictated by: Elaine Bartlett M.D. on 11/03/2016 at 14:26 Approved by: Elaine Bartlett M.D. on 11/03/2016 at 14:26
[2016-11-03] MEDS ORDERED: HYDR-4003 PO (15:27)
[2016-11-03] MEDS ORDERED: [UNRECOGNIZED DRUG - CODE] PO (15:27)
[2016-11-03] MEDS ORDERED: PANT40TA2 PO (15:27)
== END 2016-11-03 15:37 | disposition home or self-care (01) ==
LOC: SED 12:12
DX: J06.9 Acute upper respiratory infection, unspecified (principal); R07.1 Chest pain on breathing; F32.9 Major depressive disorder, single episode, unspecified; F41.9 Anxiety disorder, unspecified; Z86.711 Personal history of pulmonary embolism; Z79.01 Long term (current) use of anticoagulants; Z87.891 Personal history of nicotine dependence
CPT/HCPCS: 36415; 71010; 80053; 83880; 84484; 85025; 85378; 85610; 93005; 99285; G0463